=== PATIENT | male | born 1935 | race Caucasian/White ===

== ENCOUNTER → 2017-06-14 07:06 | Outpatient (CLI) | payer OTHER, MEDICARE, SELFPAY ==
[2017-06-14 08:55] LABS: AST(SGOT) 105 U/L (15-37); Alanine Aminotransfer ALT/SGPT 165 U/L (16-61); Albumin, Serum 3.1 g/dL (3.2-5.0); Alkaline Phosphatase 401 U/L (45-117); Bilirubin, Direct 0.21 mg/dL (0.00-0.30); Cholesterol 156 mg/dL (200); Globulin 4.6 g/dL (2.2-4.2); High Density Lipoprotein 39 mg/dL; Protein, Total 7.7 g/dL (6.4-8.2); Triglycerides 137 mg/dL; Very Low Density Lipoprotein 27 mg/dL (5-40)
== END ==
PROVIDERS: Family Provider Family Medicine; PCP Family Medicine; Visit Provider Internal Medicine Cardiovascular Disease
DX: I25.10 Atherosclerotic heart disease of native coronary artery without angina pectoris (principal); E78.5 Hyperlipidemia, unspecified; Z95.1 Presence of aortocoronary bypass graft
CPT/HCPCS: 36415; 80061; 80076

== ENCOUNTER → 2017-07-29 08:23 | Outpatient (CLI) | payer OTHER, MEDICARE, SELFPAY ==
[2017-07-29 11:06] LABS: AST(SGOT) 123 U/L (15-37); Alanine Aminotransfer ALT/SGPT 177 U/L (16-61); Albumin, Serum 3.3 g/dL (3.2-5.0); Alkaline Phosphatase 452 U/L (45-117); Bilirubin, Direct 0.27 mg/dL (0.00-0.30); Globulin 4.9 g/dL (2.2-4.2); Protein, Total 8.2 g/dL (6.4-8.2)
== END ==
PROVIDERS: Nurse Practitioner Family; Family Provider Family Medicine; PCP Family Medicine; Visit Provider Internal Medicine Cardiovascular Disease
DX: R79.89 Other specified abnormal findings of blood chemistry (principal)
CPT/HCPCS: 36415; 80076

== ENCOUNTER → 2017-10-04 06:46 | Outpatient (CLI) | payer OTHER, MEDICARE, SELFPAY ==
[2017-10-04 07:47] LABS: AST(SGOT) 72 U/L (15-37); Alanine Aminotransfer ALT/SGPT 86 U/L (16-61); Albumin, Serum 3.1 g/dL (3.2-5.0); Alkaline Phosphatase 362 U/L (45-117); Bilirubin, Direct 0.39 mg/dL (0.00-0.30); Cholesterol 162 mg/dL (200); Globulin 4.7 g/dL (2.2-4.2); High Density Lipoprotein 38 mg/dL; Protein, Total 7.8 g/dL (6.4-8.2); Triglycerides 162 mg/dL; Very Low Density Lipoprotein 32 mg/dL (5-40)
== END ==
PROVIDERS: Nurse Practitioner Family; Family Provider Family Medicine; PCP Family Medicine; Visit Provider Internal Medicine Cardiovascular Disease
DX: I10 Essential (primary) hypertension (principal); E78.5 Hyperlipidemia, unspecified; I25.10 Atherosclerotic heart disease of native coronary artery without angina pectoris; R74.8 Abnormal levels of other serum enzymes; Z95.1 Presence of aortocoronary bypass graft
CPT/HCPCS: 36415; 80061; 80076

== ENCOUNTER → 2017-10-11 07:48 | Outpatient (CLI) | payer OTHER, MEDICARE, SELFPAY ==
--- NOTE | 2017-10-11 07:52 | ECHOD_ITS ---
Reason For Study: S/P CABG Procedure This was a 2D Doppler, Color Flow transthoracic echocardiogram. Exam performed in department. Left Ventricle Mild concentric left ventricular hypertrophy. The estimated ejection fraction is 40-45 %. There are regional wall motion abnormalities as specified. Posterior-Basal: Mildly hypokinetic. Infero-Basal: Mildly hypokinetic. Right Ventricle Mildly dilated right ventricle. Normal systolic function. Atria The left atrium is mildly enlarged. Normal right atrium. Normal atrial septum. Mitral Valve Mild diffuse mitral valve thickening. Mild (1+) eccentric mitral valve insufficiency. Tricuspid Valve Normal tricuspid valve. Mild (1+) tricuspid valve insufficiency. Right ventricular systolic pressure estimated to be 40 mmHg. Mild pulmonary hypertension. Aortic Valve Trisinus/trileaflet aortic valve. Mild diffuse aortic valve thickening. Pulmonic Valve Normal pulmonic valve. Mild (1+) pulmonic valve insufficiency. Great Vessels Calcified aortic root. Mild atherosclerosis of the aortic arch. Normal inferior vena cava. Inferior vena cava collapse with sniff. Pericardium/Pleural No pericardial effusion. MMode/2D Measurements & Calculations LVIDd: 4.7 cm IVSd: 1.4 cm Ao root diam: 3.2 cm LVIDs: 3.7 cm LVPWd: 1.0 cm RVDd: 4.0 cm FS: 21.0 % LAV(MOD-bp): 67.5 ml LA A4 area: 21.9 cm2 RA A4 area: 17.2 cm2 LAV(MOD-bp) Indexed: 35.4 ml/m2 LAV(MOD-sp2): 60.3 ml LAV(MOD-sp4): 67.9 ml Time Measurements MV dec time: 0.48 sec Doppler Measurements & Calculations MV E max robinson: 44.2 cm/sec Lat Peak E' Robinson: 4.2 cm/sec Med Peak E' Robinson: 3.6 cm/sec MV A max robinson: 85.4 cm/sec E/E' lat: 10.5 E/E' med: 12.2 MV E/A: 0.52 Ao V2 max: 87.8 cm/sec LV V1 max: 77.1 cm/sec PA V2 max: 105.8 cm/sec Ao max P.1 mmHg LV V1 max P.4 mmHg PI end-d robinson: 123.5 cm/sec TR max robinson: 270.4 cm/sec TR max P.5 mmHg Interpretation Summary Mild concentric left ventricular hypertrophy. The estimated ejection fraction is 40-45 %. There are regional wall motion abnormalities as specified. Mildly dilated right ventricle. The left atrium is mildly enlarged. Mild (1+) eccentric mitral valve insufficiency. Mild (1+) tricuspid valve insufficiency. Right ventricular systolic pressure estimated to be 40 mmHg. There is no comparison study available. Ordering Physician: Boubacar Dee Referring Physician: Boubacar Dee Performed By: Jodee Salvador RDCS, RVT
== END ==
PROVIDERS: Family Provider Family Medicine; PCP Family Medicine; Visit Provider Internal Medicine Cardiovascular Disease
DX: I27.21 Secondary pulmonary arterial hypertension (principal); I34.0 Nonrheumatic mitral (valve) insufficiency; I25.2 Old myocardial infarction; Z95.1 Presence of aortocoronary bypass graft
CPT/HCPCS: 93306

== ENCOUNTER → 2017-10-16 09:31 | Outpatient (CLI) | payer OTHER, MEDICARE, SELFPAY ==
--- NOTE | 2017-10-16 09:33 | STE_ITS ---
Reason For Study: Dyspnea Stress Results Protocol: Dobutamine Stress Echo Maximum Predicted HR: 139 bpm Target HR: 118 bpm% Maximum Pre dicted HR: 91 % DurationHeart Rate Stage (mm:ss) (bpm) BPCom ment Baseline 59 151/79 No Chest Pain DSE 10 MCG 3:21 58 145/74No Chest Pain DSE 20 MCG 3:00 11 3 149/67No Chest Pain DSE 30 MCG 2:16 12 6 154/66No Chest Pain Recovery 79 134/73 No Chest Pain Stress Duration: 8:37 mm:ss Maximum Stress HR: 126 bpmM ETS: 1 Baseline Echocardiogram Findings The estimated ejection fraction is 40 %. Stress Echo Wall motion Data Resting WMIntermediate WMStress WM Resting Wall Motion Posterior-Basal: Severely hypokinetic. Mid-Posterior: Severely Hypokinetic. EKG Data The baseline ECG demonstrates normal sinus rhythm with at rate of _ beats per minute. Old inferior/posterior NM. The patient was titrated from 10 mcg to a maximun of 30 mcg of dobutamine during the stress. The maximum heart rate attained was 133 beats per minute. This was 95% of maximum predicted heart rate. During dobutamine infusion, there were no ST or T wave changes noted to suggest ischemia. No clinical angina was noted. Interpretation Summary The estimated ejection fraction is 40 %. Posterior-Basal: Severely hypokinetic. Mid-Posterior: Severely Hypokinetic. The patient was titrated from 10 mcg to a maximun of 30 mcg of dobutamine during the stress. Normal, adequate, dobutamine echocardiogram. Negative for ischemia by EKG and echocardiographic criteria. No anginal symptoms noted. Rare PVCs noted. Appropriate blood pressure response to dobutamine. Patient had baseline severe inferior posterior wall hypo-kinesis which did not appreciably improve during dobutamine infusion. All other cano improved adequately. Final LVEF of 55%. Test terminated due to the attainment of target heart rate. Ordering Physician: Boubacar Dee Referring Physician: Boubacar Dee Performed By: Jodee Salvador, SADIQ, RVT
== END ==
PROVIDERS: Family Provider Family Medicine; PCP Family Medicine; Visit Provider Internal Medicine Cardiovascular Disease
DX: I25.10 Atherosclerotic heart disease of native coronary artery without angina pectoris (principal); I48.0 Paroxysmal atrial fibrillation; Z95.1 Presence of aortocoronary bypass graft; I25.2 Old myocardial infarction; I27.21 Secondary pulmonary arterial hypertension; E78.5 Hyperlipidemia, unspecified; I10 Essential (primary) hypertension
CPT/HCPCS: 93017; 93350; J7030; A4216

== ENCOUNTER → 2018-01-20 11:21 | Outpatient (CLI) | payer OTHER, MEDICARE, SELFPAY ==
[2018-01-20 12:59] LABS: AST(SGOT) 91 U/L (15-37); Alanine Aminotransfer ALT/SGPT 127 U/L (16-61); Albumin, Serum 3.3 g/dL (3.2-5.0); Alkaline Phosphatase 391 U/L (45-117); Cholesterol 164 mg/dL (200); High Density Lipoprotein 48 mg/dL; Protein, Total 8.3 g/dL (6.4-8.2); Triglycerides 141 mg/dL; Very Low Density Lipoprotein 28 mg/dL (5-40)
== END ==
PROVIDERS: Family Provider Family Medicine; PCP Family Medicine; Visit Provider Physician Assistant Medical
DX: E78.5 Hyperlipidemia, unspecified (principal); I10 Essential (primary) hypertension; I25.10 Atherosclerotic heart disease of native coronary artery without angina pectoris; I65.29 Occlusion and stenosis of unspecified carotid artery
CPT/HCPCS: 36415; 80061; 80076

== ENCOUNTER → 2018-02-03 07:08 | Outpatient (CLI) | payer OTHER, MEDICARE, SELFPAY ==
[2018-02-03 09:12] LABS: AST(SGOT) 64 U/L (15-37); Alanine Aminotransfer ALT/SGPT 114 U/L (16-61); Alkaline Phosphatase 387 U/L (45-117); Bilirubin, Direct 0.27 mg/dL (0.00-0.30); Globulin 4.9 g/dL (2.2-4.2); Protein, Total 7.9 g/dL (6.4-8.2)
== END ==
PROVIDERS: Family Provider Family Medicine; PCP Family Medicine; Referring Provider Physician Assistant Medical; Visit Provider Physician Assistant Medical
DX: R74.8 Abnormal levels of other serum enzymes (principal)
CPT/HCPCS: 36415; 80076

== ENCOUNTER → 2018-04-28 07:00 | Outpatient (CLI) | payer OTHER, MEDICARE, SELFPAY ==
[2018-04-28 08:10] LABS: AST(SGOT) 72 U/L (15-37); Alanine Aminotransfer ALT/SGPT 104 U/L (16-61); Albumin, Serum 3.2 g/dL (3.2-5.0); Alkaline Phosphatase 316 U/L (45-117); Bilirubin, Direct 0.32 mg/dL (0.00-0.30); Cholesterol 254 mg/dL (200); Globulin 4.5 g/dL (2.2-4.2); High Density Lipoprotein 51 mg/dL; Protein, Total 7.7 g/dL (6.4-8.2); Triglycerides 173 mg/dL; Very Low Density Lipoprotein 35 mg/dL (5-40)
== END ==
PROVIDERS: Family Provider Family Medicine; PCP Family Medicine; Referring Provider Physician Assistant Medical; Visit Provider Physician Assistant Medical
DX: R74.8 Abnormal levels of other serum enzymes (principal)
CPT/HCPCS: 36415; 80061; 80076

== ENCOUNTER 2018-05-23 08:56 | Emergency (ER) | payer OTHER, MEDICARE, SELFPAY ==
[2018-05-23 08:57] VITALS: BP 159/72; PULSE 71; RESP 18; TEMP 36.2; O2SAT 95; BMI 22.6
--- NOTE | 2018-05-23 09:09 | CT_ITS ---
STUDY: CT BRAIN WITHOUT CONTRAST REASON FOR EXAM: Male, 82 years old. Laceration above the right orbit following. RADIATION DOSAGE (If Supplied By Facility): CTDIvol = ( 44.99 ) mGy, DLP = ( 779.24 ) mGycm TECHNIQUE: Transaxial CT imaging of the brain was performed without administration of intravenous contrast material. Individualized dose optimization techniques were used for this CT. COMPARISON: None. FINDINGS: Focal soft tissue hematoma overlying the lateral aspect of the right orbital region. Normal calvarium. There is mild cerebral atrophy with widening of the extra-axial spaces and ventricular dilatation. Normal white matter tracts of the cerebral hemispheres. Normal basal ganglia and thalami. Normal brainstem. Normal cerebellum. There is no intracranial hemorrhage. There are no findings of an acute ischemic infarction. Dense atherosclerotic calcification of the vertebral arteries and basilar artery as well as the cavernous portions of the internal carotid arteries bilaterally. Mucosal polyps or retention cysts in both maxillary sinuses. CT/Brain/Head without Contrast IMPRESSION: Chronic involutional changes of the brain. Focal soft tissue hematoma overlying the right orbital region. Electronically Signed: Reynaldo Cruz, at 9:29 EDT , Service support ,
--- NOTE | 2018-05-23 09:11 | ED.VISSUMM ---
- ER Visit Summary Date of Service: 05/23/18 Chief Complaint: Fall, right eyebrow laceration History of Present Illness: The patient is a 82 M who presents after a fall. He tripped on a rug and fell and hit his head. No LOC. He sustained a laceration lateral to the right eyebrow. He does take a baby aspirin. Tetanus is up-to-date. Denies any other symptoms. Physical Examination: Vital signs reviewed. HEENT exam reveals a 1.5 cm vertical laceration lateral to the right eyebrow. He has no neck pain. Full range of motion. Heart is regular rate and rhythm. Lungs clear to auscultation. Abdomen soft nontender. Neurologic exam normal Test Results: CT scan of the head reveals chronic involutional changes. There is soft tissue swelling over the area of the laceration Emergency Department Course and Treatment: The patient's wound was sutured with 3, 5?0 simple nylon sutures. There was good wound approximation. Patient's tetanus will be updated. Patient will be discharged to have sutures out in 5-7 days. Treatment Plan: [] Disposition: Discharge Impression: Closed head injury, facial laceration, 1.5 cm Laceration repair by ED physician This note was generated with [employer] dictation software. It may contain incorrect words, spelling, and punctuation that were not noted in review of the chart prior to signing ED Disposition - Plan for ED Patient: Referrals: Samir Abdi MD [Primary Care Provider] -
--- NOTE | 2018-05-23 09:32 | ED.DEP ---
ED Disposition - Plan for ED Patient: Disposition: Home or Assisted Living Instructions: ED Mechanical Fall, ED Laceration All Referrals: Samir Abdi MD [Primary Care Provider] -
[2018-05-23] MEDS: Diphth,Pertuss(Acell),Tet Vac 0.5 ML Vial IM (09:41)
== END 2018-05-23 09:48 | disposition home or self-care (01) ==
PROVIDERS: Emergency Provider Emergency Medicine; Family Provider Family Medicine; PCP Family Medicine
DX: S01.111A Laceration without foreign body of right eyelid and periocular area, initial encounter (principal); W01.198A Fall on same level from slipping, tripping and stumbling with subsequent striking against other object, initial encounter; Y93.9 Activity, unspecified; Y92.89 Other specified places as the place of occurrence of the external cause; Y99.9 Unspecified external cause status; Z79.82 Long term (current) use of aspirin; I10 Essential (primary) hypertension; E78.00 Pure hypercholesterolemia, unspecified; I48.0 Paroxysmal atrial fibrillation; E11.9 Type 2 diabetes mellitus without complications; I25.10 Atherosclerotic heart disease of native coronary artery without angina pectoris; Z95.1 Presence of aortocoronary bypass graft
CPT/HCPCS: 12011; 70450; 90471; 90715; 99283

== ENCOUNTER → 2018-06-30 08:29 | Outpatient (CLI) | payer OTHER, MEDICARE, SELFPAY ==
[2018-06-30 09:26] LABS: Absolute Lymphocyte Count 2.55 X10^3/ul (0.83-4.51); Basophil# 0.02 X10^3/uL; Basophil% 0.3 % (0-1); Eosinophil# 0.27 X10^3/uL; Eosinophils% 3.5 % (0-5); Hematocrit 40.7 % (40-54); Hemoglobin 13.4 g/dl (13.0-16.5); Lymphocyte # 2.55 X10^3/ul (4.0); Lymphocyte % 33.5 % (19-41); Mean Corp Hgb Conc 32.9 g/gl (32-36); Mean Corpuscular Hgb 31.1 pg (27.0-32.0); Mean Corpuscular Volume 94.4 fL (80-94); Mean Platelet Vol. 10.9 fl (6.2-12.0); Monocyte# 0.72 X10^3/uL; Monocyte% 9.4 % (0-10); Neutrophil # 4.03 X10^3/uL (2.7-7.7); Neutrophil % 52.9 % (47-70); Platelet Count 205 K/mm3 (150-450); RBC Distribution Width CV 14.1 % (11.6-14.6); RBC Distribution Width SD 48.3 fl (35.1-43.9); Red Blood Count 4.31 M/mm3 (4.6-6.2); White Blood Count 7.6 K/mm3 (4.4-11.0)
[2018-06-30 09:27] LABS: POSITIVE COUNT NO; POSITIVE DIFFERENTIAL NO; POSITIVE MORPHOLOGY NO
[2018-06-30 09:31] LABS: Prothrombin Time (Protime)PT. 13.4 SECONDS (11.7-14.9)
[2018-06-30 09:54] LABS: Vitamin B12 953 pg/mL (211-911); Vitamin D,25 Hydroxy 18.4 ng/mL (29.95-100.01)
[2018-06-30 09:55] LABS: BUN 21 mg/dL (7-18); Creatinine, Serum 1.29 mg/dL (0.70-1.30); EST Glomerular Filtration Rate 57 mL/min (>60); Glucose 90 mg/dL (74-106)
[2018-06-30 09:56] LABS: AST(SGOT) 74 U/L (15-37); Alanine Aminotransfer ALT/SGPT 121 U/L (16-61); Albumin, Serum 3.1 g/dL (3.2-5.0); Alkaline Phosphatase 372 U/L (45-117); Anion Gap 5 (5-15); BUN/Creat Ratio 16.3 RATIO (10-20); Bilirubin, Direct 0.42 mg/dL (0.00-0.30); Chloride 108 mmol/L (98-107); Cholesterol 228 mg/dL (200); Est Glom Filt Rate - Afr Amer 69 mL/min (>60); Ferritin 123 ng/mL (26-388); GGTP 793 U/L (15-85); Globulin 4.5 g/dL (2.2-4.2); High Density Lipoprotein 46 mg/dL; Iron 139 ug/dL (65-175); Iron Binding Capacity,Total 234 ug/dL (250-450); Potassium 3.9 mmol/L (3.5-5.1); Protein, Total 7.6 g/dL (6.4-8.2); Sodium Level 141 mmol/L (136-145); T4 Total, Thyroxin 8.6 ug/dL (4.5-12.1); Triglycerides 191 mg/dL; Very Low Density Lipoprotein 38 mg/dL (5-40)
[2018-07-01 16:07] LABS: ANTINUCLEAR ANTIBODIES DIRECT Positive (Negative)
[2018-07-02 15:11] LABS: Alpha Antitrypsin Serum 141 mg/dL (90-200); Anti-Mitochondrial AB 78.3 Units (0.0-20.0)
== END ==
PROVIDERS: Family Provider Family Medicine; PCP Family Medicine
DX: R94.5 Abnormal results of liver function studies (principal)
CPT/HCPCS: 36415; 80048; 80061; 80076; 82103; 82105; 82306; 82390; 82607; 82728; 82977; 83516; 83540; 83550; 84165; 84436; 84443; 84590; 85025; 85610; 85730; 86038; 86644; 86663; 86664; 86665; 86704; 86706; 86708; 86803; 87340

== ENCOUNTER → 2018-09-08 07:49 | Outpatient (CLI) | payer OTHER, MEDICARE, SELFPAY ==
[2018-08-07 13:20] VITALS: BMI 21.5
[2018-09-08 08:36] LABS: Absolute Lymphocyte Count 3.73 X10^3/ul (0.83-4.51); Absolute Neutrophil Count 3.5 X10^3/uL (2.0-7.7); Basophil# 0.02 X10^3/uL; Basophil% 0.2 % (0-1); Eosinophil# 0.11 X10^3/uL; Eosinophils% 1.4 % (0-5); Hematocrit 41.1 % (40-54); Hemoglobin 13.8 g/dl (13.0-16.5); Lymphocyte # 3.73 X10^3/ul (4.0); Lymphocyte % 46.2 % (19-41); Mean Corp Hgb Conc 33.6 g/gl (32-36); Mean Corpuscular Hgb 31.2 pg (27.0-32.0); Mean Platelet Vol. 10.2 fl (6.2-12.0); Monocyte# 0.69 X10^3/uL; Monocyte% 8.6 % (0-10); Neutrophil # 3.51 X10^3/uL (2.7-7.7); Neutrophil % 43.5 % (47-70); Platelet Count 176 K/mm3 (150-450); RBC Distribution Width SD 47.7 fl (35.1-43.9); Red Blood Count 4.42 M/mm3 (4.6-6.2); White Blood Count 8.1 K/mm3 (4.4-11.0)
[2018-09-08 08:38] LABS: POSITIVE COUNT NO; POSITIVE DIFFERENTIAL NO; POSITIVE MORPHOLOGY NO
[2018-09-08 09:18] LABS: AST(SGOT) 21 U/L (15-37); Alanine Aminotransfer ALT/SGPT 22 U/L (16-61); Albumin, Serum 3.3 g/dL (3.2-5.0); Alkaline Phosphatase 88 U/L (45-117); Anion Gap 5 (5-15); BUN 30 mg/dL (7-18); BUN/Creat Ratio 22.4 RATIO (10-20); Calcium,Total 9.3 mg/dL (8.5-10.1); Chloride 109 mmol/L (98-107); Cholesterol 250 mg/dL (200); Creatinine, Serum 1.34 mg/dL (0.70-1.30); EST Glomerular Filtration Rate 54 mL/min (>60); Est Glom Filt Rate - Afr Amer 66 mL/min (>60); Ferritin 91 ng/mL (26-388); GGTP 94 U/L (15-85); Glucose 92 mg/dL (74-106); High Density Lipoprotein 40 mg/dL; Iron 67 ug/dL (65-175); Iron Binding Capacity,Total 251 ug/dL (250-450); Potassium 4.1 mmol/L (3.5-5.1); Protein, Total 7.3 g/dL (6.4-8.2); Sodium Level 142 mmol/L (136-145); Triglycerides 227 mg/dL; Very Low Density Lipoprotein 45 mg/dL (5-40)
[2018-09-08 09:26] LABS: Vitamin B12 628 pg/mL (211-911); Vitamin D,25 Hydroxy 40.6 ng/mL (29.95-100.01)
== END ==
PROVIDERS: Family Provider Family Medicine; PCP Family Medicine
DX: R94.5 Abnormal results of liver function studies (principal); R63.4 Abnormal weight loss
CPT/HCPCS: 36415; 80048; 80061; 80076; 82140; 82306; 82607; 82728; 82977; 83516; 83540; 83550; 84443; 84590; 84630; 85025

== ENCOUNTER → 2018-11-24 07:56 | Outpatient (CLI) | payer OTHER, MEDICARE, SELFPAY ==
[2018-08-07 13:20] VITALS: BMI 21.5
[2018-11-24 09:31] LABS: AST(SGOT) 30 U/L (15-37); Alanine Aminotransfer ALT/SGPT 44 U/L (16-61); Albumin, Serum 3.1 g/dL (3.2-5.0); Alkaline Phosphatase 107 U/L (45-117); Bilirubin, Direct 0.13 mg/dL (0.00-0.30); Protein, Total 7.1 g/dL (6.4-8.2); T4 Free Direct 1.23 ng/dL (0.76-1.46); Thyroid Stim Hormone (TSH) 0.77 uIU/mL (0.358-3.74)
== END ==
PROVIDERS: Family Provider Family Medicine; PCP Family Medicine; Referring Provider Family Medicine; Visit Provider Family Medicine
DX: E78.5 Hyperlipidemia, unspecified (principal); R74.0 Nonspecific elevation of levels of transaminase and lactic acid dehydrogenase [LDH]; E03.9 Hypothyroidism, unspecified
CPT/HCPCS: 36415; 80076; 84439; 84443

== ENCOUNTER → 2018-12-24 11:23 | Outpatient (CLI) | payer OTHER, MEDICARE, SELFPAY ==
[2018-08-07 13:20] VITALS: BMI 21.5
[2018-12-24 16:21] LABS: BUN 27 mg/dL (7-18); Creatinine, Serum 1.13 mg/dL (0.70-1.30); Glucose 93 mg/dL (74-106)
[2018-12-24 16:22] LABS: ALB/GLOB Ratio 0.9 RATIO (0.9-2.4); AST(SGOT) 22 U/L (15-37); Alanine Aminotransfer ALT/SGPT 28 U/L (16-61); Albumin, Serum 3.3 g/dL (3.2-5.0); Alkaline Phosphatase 96 U/L (45-117); Anion Gap 7 (5-15); BUN/Creat Ratio 23.9 RATIO (10-20); Calcium,Total 9.2 mg/dL (8.5-10.1); Chloride 108 mmol/L (98-107); EST Glomerular Filtration Rate 66 mL/min (>60); Est Glom Filt Rate - Afr Amer 80 mL/min (>60); GGTP 51 U/L (15-85); Globulin 3.7 g/dL (2.2-4.2); Potassium 4.5 mmol/L (3.5-5.1); Sodium Level 143 mmol/L (136-145); T4 Free Direct 2.06 ng/dL (0.76-1.46); Thyroid Stim Hormone (TSH) 0.02 uIU/mL (0.358-3.74)
[2018-12-24 16:29] LABS: Hemoglobin A1c 5.7 % (4.2-6.3)
== END ==
PROVIDERS: Family Provider Family Medicine; PCP Family Medicine; Visit Provider Family Medicine
DX: E03.9 Hypothyroidism, unspecified (principal); R74.0 Nonspecific elevation of levels of transaminase and lactic acid dehydrogenase [LDH]; R73.01 Impaired fasting glucose
CPT/HCPCS: 36415; 80053; 82977; 83036; 84439; 84443

== ENCOUNTER → 2019-01-19 08:00 | Outpatient (CLI) | payer OTHER, MEDICARE, SELFPAY ==
[2019-01-11 21:13] VITALS: BMI 21.5
--- NOTE | 2019-01-19 08:01 | NM_ITS ---
CLINICAL: 83-year-old male with reported history of elevation of the serum free T4 level and a suppressed serum TSH. I-123 THYROID UPTAKE and SCAN COMPARISON: None available FINDINGS: The patient was administered a 321 uCi I-123 capsule by mouth. The 4-hour I-123 radioactive iodine thyroidal uptake was calculated to be 2.7 % (normal 5 to 25 %). The 24-hour I-123 radioactive iodine thyroidal uptake was calculated to be 2.4 % (normal 5 to 40 %). The I-123 thyroid scan demonstrates heterogeneous-decreased radiopharmaceutical concentration throughout both lobes of a U-shaped thyroid gland. There are no dominant colloidal parenchymal hypofunctioning-cold nodules noted in either lobe of the thyroid gland. NM/Thyroid Uptake Single or Mult IMPRESSION: 1. ABNORMAL DECREASED 4- and 24-hour I-123 radioactive iodine thyroidal uptakes. 2. 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 Electronically Signed: Wellington Parikh DO at 23:29 EST Tel , Service support ,
== END ==
PROVIDERS: Family Provider Family Medicine; PCP Family Medicine; Referring Provider Internal Medicine Endocrinology, Diabetes & Metabolism; Visit Provider Internal Medicine Endocrinology, Diabetes & Metabolism
DX: E05.90 Thyrotoxicosis, unspecified without thyrotoxic crisis or storm (principal); R94.6 Abnormal results of thyroid function studies
CPT/HCPCS: 78012; A9516

== ENCOUNTER → 2019-02-16 07:35 | Outpatient (CLI) | payer OTHER, MEDICARE, SELFPAY ==
[2019-01-11 21:13] VITALS: BMI 21.5
[2019-02-16 09:17] LABS: T4 Free Direct 0.93 ng/dL (0.76-1.46); Thyroid Stim Hormone (TSH) 2.01 uIU/mL (0.358-3.74)
== END ==
PROVIDERS: Family Provider Family Medicine; PCP Family Medicine; Referring Provider Internal Medicine Endocrinology, Diabetes & Metabolism; Visit Provider Internal Medicine Endocrinology, Diabetes & Metabolism
DX: E06.3 Autoimmune thyroiditis (principal)
CPT/HCPCS: 36415; 84439; 84443

== ENCOUNTER → 2019-02-27 15:30 | Outpatient (CLI) | payer OTHER, MEDICARE, SELFPAY ==
[2019-01-11 21:13] VITALS: BMI 21.5
== END ==
PROVIDERS: Family Provider Family Medicine; PCP Family Medicine; Referring Provider Family Medicine; Visit Provider Family Medicine
DX: R19.7 Diarrhea, unspecified (principal)
CPT/HCPCS: 83630; 87177; 87209; 87493; 87506

== ENCOUNTER → 2019-04-24 | Outpatient (CLI) | payer OTHER, MEDICARE, SELFPAY ==
[2019-01-11 21:13] VITALS: BMI 21.5
[2019-04-24 15:38] LABS: Absolute Lymphocyte Count 3.55 X10^3/uL (0.83-4.51); Absolute Neutrophil Count 6.1 X10^3/uL (2.0-7.7); Basophil# 0.02 X10^3/uL; Basophil% 0.2 % (0-1); Eosinophil# 0.17 X10^3/uL; Eosinophils% 1.6 % (0-5); Hematocrit 40.1 % (40-54); Hemoglobin 13.1 g/dL (13.0-16.5); Lymphocyte # 3.55 X10^3/ul (4.0); Lymphocyte % 32.4 % (19-41); Mean Corp Hgb Conc 32.7 g/dL (32-36); Mean Corpuscular Volume 91.8 fL (80-94); Mean Platelet Vol. 11.1 fl (6.2-12.0); Monocyte# 1.04 X10^3/uL; Monocyte% 9.5 % (0-10); NRBC Flagged by Analyzer 0 % (0-5); Neutrophil # 6.12 X10^3/uL (2.7-7.7); Neutrophil % 55.8 % (47-70); Platelet Count 206 K/mm3 (150-450); RBC Distribution Width CV 13.7 % (11.6-14.6); RBC Distribution Width SD 46.6 fl (35.1-43.9); Red Blood Count 4.37 M/mm3 (4.6-6.2)
[2019-04-24 15:59] LABS: International Normalized Ratio 1.1; Prothrombin Time (Protime)PT. 14.3 SECONDS (11.7-14.9)
[2019-04-24 16:00] LABS: Partial Thromboplast Time 35.5 Seconds (24.1-36.2)
[2019-04-24 16:11] LABS: ALB/GLOB Ratio 0.9 RATIO (0.9-2.4); AST(SGOT) 20 U/L (15-37); Alanine Aminotransfer ALT/SGPT 25 U/L (16-61); Albumin, Serum 3.5 g/dL (3.2-5.0); Alkaline Phosphatase 72 U/L (45-117); Anion Gap 4 (5-15); BUN 29 mg/dL (7-18); BUN/Creat Ratio 23.2 RATIO (10-20); Calcium,Total 9.3 mg/dL (8.5-10.1); Chloride 110 mmol/L (98-107); Creatinine, Serum 1.25 mg/dL (0.70-1.30); EST Glomerular Filtration Rate 59 mL/min (>60); Est Glom Filt Rate - Afr Amer 71 mL/min (>60); Globulin 3.8 g/dL (2.2-4.2); Glucose 85 mg/dL (74-106); Potassium 4.5 mmol/L (3.5-5.1); Protein, Total 7.3 g/dL (6.4-8.2); Sodium Level 143 mmol/L (136-145)
== END | disposition home or self-care (01) ==
PROVIDERS: PCP Family Medicine; Visit Provider Family Medicine
DX: K92.1 Melena (principal)
CPT/HCPCS: 36415; 80053; 85025; 85610; 85730

== ENCOUNTER → 2019-04-27 | Outpatient (CLI) | payer OTHER, MEDICARE, SELFPAY ==
[2019-01-11 21:13] VITALS: BMI 21.5
== END | disposition home or self-care (01) ==
LOC: BFHLAB 10:37
PROVIDERS: PCP Family Medicine; Visit Provider Family Medicine
DX: K92.1 Melena (principal); R19.7 Diarrhea, unspecified
CPT/HCPCS: 82274

== ENCOUNTER → 2019-06-19 | Outpatient (CLI) | payer OTHER, MEDICARE, SELFPAY ==
[2019-01-11 21:13] VITALS: BMI 21.5
[2019-06-19 08:30] LABS: Absolute Lymphocyte Count 3.29 X10^3/uL (0.83-4.51); Absolute Neutrophil Count 4.8 X10^3/uL (2.0-7.7); Basophil# 0.03 X10^3/uL; Basophil% 0.3 % (0-1); Eosinophil# 0.23 X10^3/uL; Eosinophils% 2.5 % (0-5); Hematocrit 40.4 % (40-54); Hemoglobin 13.4 g/dL (13.0-16.5); Lymphocyte # 3.29 X10^3/ul (4.0); Lymphocyte % 35.3 % (19-41); Mean Corp Hgb Conc 33.2 g/dL (32-36); Mean Corpuscular Hgb 31.4 pg (27.0-32.0); Mean Corpuscular Volume 94.6 fL (80-94); Mean Platelet Vol. 10.2 fl (6.2-12.0); Monocyte% 9.7 % (0-10); NRBC Flagged by Analyzer 0 % (0-5); Neutrophil # 4.84 X10^3/uL (2.7-7.7); Platelet Count 187 K/mm3 (150-450); RBC Distribution Width CV 13.5 % (11.6-14.6); RBC Distribution Width SD 46.5 fl (35.1-43.9); Red Blood Count 4.27 M/mm3 (4.6-6.2); White Blood Count 9.3 K/mm3 (4.4-11.0)
[2019-06-19 08:38] LABS: International Normalized Ratio 1.1; Prothrombin Time (Protime)PT. 13.5 SECONDS (11.7-14.9)
[2019-06-19 08:57] LABS: Vitamin B12 822 pg/mL (211-911)
[2019-06-19 09:02] LABS: AST(SGOT) 25 U/L (15-37); Alanine Aminotransfer ALT/SGPT 27 U/L (16-61); Albumin, Serum 3.7 g/dL (3.2-5.0); Alkaline Phosphatase 90 U/L (45-117); Anion Gap 6 (5-15); BUN 36 mg/dL (7-18); BUN/Creat Ratio 25.4 RATIO (10-20); Bilirubin, Direct 0.16 mg/dL (0.00-0.30); Calcium,Total 9.3 mg/dL (8.5-10.1); Chloride 109 mmol/L (98-107); Cholesterol 124 mg/dL (200); Creatinine, Serum 1.42 mg/dL (0.70-1.30); EST Glomerular Filtration Rate 51 mL/min (>60); Est Glom Filt Rate - Afr Amer 61 mL/min (>60); GGTP 35 U/L (15-85); Globulin 3.9 g/dL (2.2-4.2); Glucose 112 mg/dL (74-106); High Density Lipoprotein 37 mg/dL; Potassium 4.2 mmol/L (3.5-5.1); Protein, Total 7.6 g/dL (6.4-8.2); Sodium Level 142 mmol/L (136-145); Triglycerides 215 mg/dL; Very Low Density Lipoprotein 43 mg/dL (5-40)
[2019-06-24 05:17] LABS: AFP, Tumor Marker 2.7 ng/mL (0.0-8.3)
== END | disposition home or self-care (01) ==
LOC: LAB 08:06
PROVIDERS: PCP Family Medicine
DX: B19.10 Unspecified viral hepatitis B without hepatic coma (principal); R94.5 Abnormal results of liver function studies; R63.4 Abnormal weight loss
CPT/HCPCS: 36415; 80048; 80061; 80076; 82105; 82607; 82677; 82977; 84443; 84590; 84702; 85025; 85610

== ENCOUNTER → 2019-11-18 | Outpatient (CLI) | payer OTHER, MEDICARE, SELFPAY ==
[2019-01-11 21:13] VITALS: BMI 21.5
--- NOTE | 2019-11-18 14:32 | RAD_ITS ---
STUDY: X-RAY CHEST REASON FOR EXAM: Male, 84 years old. SOB x 6 months, worsening x several weeks -- previous heart surgery 30 years ago -- former smoker, quit 25 years ago -- high blood pressure, takes medication for it TECHNIQUE: PA and lateral views of the chest. COMPARISON: None. FINDINGS: Status post median sternotomy. There is hyperinflation of the lungs consistent with chronic obstructive lung disease (COPD). There is no demonstrated pleural abnormality. Normal size heart. Normal mediastinum and morenita. Normal visualized pulmonary arteries. Normal visualized aortic arch and descending thoracic aorta. Normal visualized thoracic spine. Normal visualized ribs, clavicles, and shoulders. There is no demonstrated abnormality of the visualized soft tissue structures of the upper abdomen. RAD/Chest PA and Lateral IMPRESSION: Emphysema without pneumonia or atelectasis. Electronically Signed: Wellington Keita MD at 15:03 EDT Tel , Service support ,
[2019-11-18 16:38] LABS: Hematocrit 41.7 % (40-54); Hemoglobin 13.6 g/dL (13.0-16.5); Mean Corp Hgb Conc 32.6 g/dL (32-36); Mean Corpuscular Hgb 30.8 pg (27.0-32.0); Mean Corpuscular Volume 94.6 fL (80-94); Mean Platelet Vol. 10.7 fl (6.2-12.0); Platelet Count 230 K/mm3 (150-450); RBC Distribution Width CV 13.2 % (11.6-14.6); RBC Distribution Width SD 45.1 fl (35.1-43.9); Red Blood Count 4.41 M/mm3 (4.6-6.2); White Blood Count 12.3 K/mm3 (4.4-11.0)
[2019-11-18 16:59] LABS: ALB/GLOB Ratio 1.1 RATIO (0.9-2.4); AST(SGOT) 27 U/L (15-37); Alanine Aminotransfer ALT/SGPT 30 U/L (16-61); Albumin, Serum 3.9 g/dL (3.2-5.0); Alkaline Phosphatase 89 U/L (45-117); Anion Gap 6 (5-15); BNP,B-Type NATRIURETIC PEPTIDE 191.7 pg/mL (0-100); BUN 46 mg/dL (7-18); BUN/Creat Ratio 25.4 RATIO (10-20); Calcium,Total 9.2 mg/dL (8.5-10.1); Chloride 110 mmol/L (98-107); Creatinine, Serum 1.81 mg/dL (0.70-1.30); EST Glomerular Filtration Rate 38 mL/min (>60); Est Glom Filt Rate - Afr Amer 46 mL/min (>60); Globulin 3.7 g/dL (2.2-4.2); Glucose 94 mg/dL (74-106); Potassium 4.1 mmol/L (3.5-5.1); Protein, Total 7.6 g/dL (6.4-8.2); Sodium Level 142 mmol/L (136-145)
== END | disposition home or self-care (01) ==
LOC: RAD 14:32
PROVIDERS: PCP Family Medicine; Referring Provider Nurse Practitioner Family; Visit Provider Nurse Practitioner Family
DX: I25.10 Atherosclerotic heart disease of native coronary artery without angina pectoris (principal); R06.00 Dyspnea, unspecified; I27.21 Secondary pulmonary arterial hypertension; I48.0 Paroxysmal atrial fibrillation; K74.60 Unspecified cirrhosis of liver; Z95.1 Presence of aortocoronary bypass graft
CPT/HCPCS: 36415; 71046; 80053; 83880; 85027

== ENCOUNTER → 2019-12-04 | Outpatient (CLI) | payer OTHER, MEDICARE, SELFPAY ==
[2019-01-11 21:13] VITALS: BMI 21.5
--- NOTE | 2019-12-04 06:10 | ECHOCS_ITS ---
Reason For Study: Dyspnea/SOB Procedure This was a 2D Doppler, Color Flow transthoracic echocardiogram. The study was technically difficult. Contrast injection was performed. Exam performed in department. Left Ventricle Mildly dilated left ventricle. Mild to moderate segmental systolic dysfunction (see wall motion). The estimated ejection fraction is 40 %. There is evidence of diastolic dysfunction. Posterior- Basal: Hypokinetic. Infero-Basal: Akinetic. Basal inferoseptal: Hypokinetic. Mid-Posterior: Hypokinetic. Mid-Inferior: Akinetic. Mid-inferoseptal : Hypokinetic. Anterior Munith : Hypokinetic. Inferior Munith : Akinetic. Septal Munith : Hypokinetic. Right Ventricle Normal RV size. Normal systolic function. Atria The left atrium is mildly enlarged. Normal right atrium. No doppler evidence for ASD. Mitral Valve There is no mitral annular calcification. Mild diffuse mitral valve thickening. Mild focal mitral valve calcification of the posterior leaflet. The mitral valve chordae are thickened and/or calcified. Moderate (2+) eccentric mitral valve insufficiency. Tricuspid Valve Normal tricuspid valve. Mild to moderate (1-2+) tricuspid valve insufficiency. Right ventricular systolic pressure estimated to be 38 mmHg. Aortic Valve Trisinus/trileaflet aortic valve. Mild diffuse aortic valve thickening. Trivial aortic valve insufficiency. Pulmonic Valve The pulmonic valve is not well visualized. Mild-Moderate (1-2+) pulmonic valve insufficiency. Great Vessels Normal sized aortic root. Calcified aortic root. Pericardium/Pleural No pericardial effusion. Medication Diluted definity 4ml given slow IV push to enhance endocardial definition. MMode/2D Measurements & Calculations LVIDd: 5.9 cm IVSd: 1.1 cm Ao root diam: 3.3 cm LVIDs: 4.7 cm LVPWd: 0.63 cm RVDd: 3.4 cm FS: 19.8 % LAV(MOD-bp): 70.2 ml LVAd ap4: 34.9 cm2 SV(MOD-sp4): 57.4 ml LAV(MOD-bp) Indexed: 36.5 ml/m2 EDV(MOD-sp4): 126.5 ml LAV(MOD-sp2): 59.9 ml EDV(sp4-el): 130.0 ml LAV(MOD-sp4): 66.9 ml LVAs ap4: 23.8 cm2 ESV(MOD-sp4): 69.1 ml ESV(sp4-el): 69.8 ml EF(MOD-sp4): 45.4 % EF(sp4-el): 46.3 % SV(sp4-el): 60.2 ml LA A4 area: 22.4 cm2 LA dimension(2D): 4.8 cm RA A4 area: 16.7 cm2 Doppler Measurements & Calculations MV E max robinson: 74.4 cm/sec Lat Peak E' Robinson: 5.3 cm/sec Med Peak E' Robinson: 3.6 cm/sec MV A max robinson: 102.3 cm/sec E/E' lat: 13.9 E/E' med: 20.6 MV E/A: 0.73 Ao V2 max: 98.7 cm/sec LV V1 max: 71.7 cm/sec PA V2 max: 108.8 cm/sec Ao max P.9 mmHg LV V1 max P.1 mmHg Ao V2 mean: 74.0 cm/sec Ao mean P.3 mmHg Ao V2 VTI: 27.5 cm PI end-d robinson: 134.8 cm/sec TR max robinson: 293.9 cm/sec TR max P.5 mmHg Interpretation Summary The study was technically difficult. Contrast injection was performed. Mildly dilated left ventricle. Mild to moderate segmental systolic dysfunction (see wall motion). The estimated ejection fraction is 40 %. The left atrium is mildly enlarged. Mild diffuse mitral valve thickening. Mild focal mitral valve calcification of the posterior leaflet. The mitral valve chordae are thickened and/or calcified. Moderate (2+) eccentric mitral valve insufficiency. Mild to moderate (1-2+) tricuspid valve insufficiency. Mild diffuse aortic valve thickening. Trivial aortic valve insufficiency. Mild-Moderate (1-2+) pulmonic valve insufficiency. Calcified aortic root. Right ventricular systolic pressure estimated to be 38 mmHg. There is evidence of diastolic dysfunction. Ordering Physician: Serg Browne Referring Physician: Samir Abdi Performed By: Abbie Browne RDCS, RVT
--- NOTE | 2019-12-04 08:39 | STRESSREP ---
Stress Test Report Date: 12-04-2019 Procedure: Pharmacologic stress nuclear imaging study Indications: Shortness of breath/dyspnea on exertion Consent: Per the patient Procedure: The patient underwent pharmacologic (Regadenoson) evaluation with a peak heart rate of 80 beats per minute (58%predicted maximal heart rate) and a peak blood pressure of 128/68 mmHg. The baseline ECG demonstrated sinus bradycardia; T wave abnormality. The peak pharmacologic ECG demonstrated no obvious ECG changes. There was an occasional PVC pretest. There was no complaint of chest discomfort during pharmacologic infusion or recovery. The examination was discontinued secondary to completion of protocol. Impression: 1. Pharmacologic (Regadenoson) evaluation 2. Peak pharmacologic ECG with continued T wave abnormality with no obvious ECG changes. 3. There was an occasional PVC pretest. 4. Nuclear images pending Myocardial perfusion imaging study: Technique: The patient was injected with 10.9 millicuries of technetium 99m Cardiolite and subsequently rest SPECT Cardiolite nuclear imaging was obtained in the horizontal long, vertical long, and short axis views. The patient underwent pharmacologic (Regadenoson) evaluation with a peak heart rate of 80 beats per minute (58% percent predicted maximal heart rate) and a peak blood pressure of 128/68 mmHg. The patient was injected with 33.1 millicuries of technetium 99m Cardiolite and subsequently stress SPECT Cardiolite nuclear imaging was obtained in the horizontal long, vertical long, and short axis views. A gated Cardiolite study at peak stress was obtained. Interpretation: Rest and stress SPECT Cardiolite nuclear imaging status post realignment, normalization, and attenuation correction demonstrate the appearance of diminished absence of myocardial perfusion/tracer uptake in portions of the mid to distal inferoseptal, inferior, and inferolateral segments as well as the inferior apical and lateral segments which status post stress appears to be somewhat more prominent in the inferoapical and lateral apical segments. There is diminished end systolic thickening and brightening. The gated Cardiolite study demonstrates diminished myocardial thickening and inward wall motion. The reported LVEF is 16%. Impression: 1. Rest and stress SPECT Cardiolite nuclear imaging demonstrate myocardial perfusion changes compatible with an area of previous myocardial injury/infarction involving portions of the inferoseptal, inferior, inferolateral, inferoapical and lateral apical segments with post stress myocardial perfusion changes appearing compatible with an element of mild denton-infarct related myocardial ischemia in the inferior apical/lateral apical segments. 2. The gated Cardiolite study reports an LVEF of 16%. This note was generated with [employer] software. It may contain incorrect words, spelling, and punctuation that were not noted in checking the note before signing.
== END | disposition home or self-care (01) ==
LOC: CVS 06:10
PROVIDERS: PCP Family Medicine; Referring Provider Nurse Practitioner Family; Visit Provider Nurse Practitioner Family
DX: R06.00 Dyspnea, unspecified (principal); R06.02 Shortness of breath; I25.10 Atherosclerotic heart disease of native coronary artery without angina pectoris; I25.2 Old myocardial infarction; I34.1 Nonrheumatic mitral (valve) prolapse; I34.0 Nonrheumatic mitral (valve) insufficiency; I27.21 Secondary pulmonary arterial hypertension; I10 Essential (primary) hypertension; E78.5 Hyperlipidemia, unspecified; I48.0 Paroxysmal atrial fibrillation; I65.29 Occlusion and stenosis of unspecified carotid artery; Z95.1 Presence of aortocoronary bypass graft
CPT/HCPCS: 78452; 93017; 93306; A9500; Q9957; A4216; C8929; J2785

== ENCOUNTER → 2019-12-18 | Outpatient (CLI) | payer OTHER, MEDICARE, SELFPAY ==
[2019-12-07 15:18] VITALS: BMI 23.9
[2019-12-18 12:50] LABS: Absolute Lymphocyte Count 4.85 X10^3/uL (0.83-4.51); Absolute Neutrophil Count 6.2 X10^3/uL (2.0-7.7); Basophil# 0.05 X10^3/uL; Basophil% 0.4 % (0-1); Eosinophil# 0.25 X10^3/uL; Hematocrit 39.7 % (40-54); Hemoglobin 12.9 g/dL (13.0-16.5); Lymphocyte # 4.85 X10^3/ul (4.0); Lymphocyte % 38.8 % (19-41); Mean Corp Hgb Conc 32.5 g/dL (32-36); Mean Corpuscular Hgb 31.1 pg (27.0-32.0); Mean Corpuscular Volume 95.7 fL (80-94); Mean Platelet Vol. 10.9 fl (6.2-12.0); Monocyte# 1.06 X10^3/uL; Monocyte% 8.5 % (0-10); NRBC Flagged by Analyzer 0 % (0-5); Neutrophil # 6.24 X10^3/uL (2.7-7.7); Neutrophil % 49.9 % (47-70); Platelet Count 236 K/mm3 (150-450); RBC Distribution Width CV 13.2 % (11.6-14.6); RBC Distribution Width SD 46.5 fl (35.1-43.9); Red Blood Count 4.15 M/mm3 (4.6-6.2); White Blood Count 12.5 K/mm3 (4.4-11.0)
[2019-12-18 13:19] LABS: Anion Gap 6 (5-15); BUN 56 mg/dL (7-18); BUN/Creat Ratio 30.6 RATIO (10-20); Chloride 109 mmol/L (98-107); Creatinine, Serum 1.83 mg/dL (0.70-1.30); EST Glomerular Filtration Rate 38 mL/min (>60); Est Glom Filt Rate - Afr Amer 46 mL/min (>60); Glucose 105 mg/dL (74-106); Potassium 4.2 mmol/L (3.5-5.1); Sodium Level 142 mmol/L (136-145)
== END | disposition home or self-care (01) ==
LOC: LAB 11:10
PROVIDERS: PCP Family Medicine; Referring Provider Nurse Practitioner Family; Visit Provider Nurse Practitioner Family
DX: E78.5 Hyperlipidemia, unspecified (principal); I10 Essential (primary) hypertension; I25.10 Atherosclerotic heart disease of native coronary artery without angina pectoris; I48.0 Paroxysmal atrial fibrillation; Z95.1 Presence of aortocoronary bypass graft
CPT/HCPCS: 36415; 80048; 85025

== ENCOUNTER 2019-12-25 07:08 | Day surgery (SDC) | payer OTHER, MEDICARE, SELFPAY ==
[2019-12-07 15:18] VITALS: BMI 23.9
[2019-12-24 10:53] VITALS: BMI 23.9
--- NOTE | 2019-12-25 07:53 | PCM.HP.BLA ---
Problem List (1) Abnormal stress test Status: Acute (2) CAD (coronary artery disease) Status: Chronic Qualifiers: Coronary Disease-Associated Artery/Lesion type: nez perce artery [place] vs. transplanted heart: nez perce heart (3) H/O coronary artery bypass surgery Status: Chronic Comment: CABG x 5 BLUE-LAD, Sequential SVG-PLB and PDA, SVG-D1 and SVG-Lat Cx w/ the proximal anastomosis on the SVG-D1 04/04/2001 @ [facility]; (4) Hyperlipidemia Status: Chronic Qualifiers: (5) Hypertension Status: Chronic Qualifiers: History and Physical Date of Admission: 12/25/19 [facility] [address] [place] [address] OFFICE VISIT Date of Service: 12/07/19 MR#: [id number] Acct: [id number] Name: KT STILES Rep #: [id number] : 1935 Provider: MEKHI Browne Age/Sex: 84/M Location: [facility] [place] Status: Signed HPI [facility] History of Present Illness Details: KT STILES, is a 84 M who presents to the office today for establishment of cardiac care. He is a former patient of Dr. Maza. Patient has a history of coronary artery disease status post CABG ?5 in 2001 at [facility], peripheral vascular disease, hypertension, nondiabetic, peripheral vascular disease, paroxysmal atrial fibrillation, hypercholesterolemia, and mitral valve prolapse with insufficiency. Patient is a previous [id number] smoking history and quit around 20 years ago. Patient underwent an echocardiogram on 02/23/14 in [place] which demonstrated an EF of 50%, with basal inferior hypokinesis, probable mitral valve prolapse of the posterior leaflet, posterior directed mild MR, RVSP of approximately 38 mmHg and an moderate dilatation of the left atrium at 5 cm. He underwent a noninvasive nuclear stress test in [place] as well on 02/23/14. Patient reportedly had a repeat echocardiogram and stress test in February 2017. 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 He states at night, when sleeping on left side he notes SOB. He states over the last 6 months he has had noticed worsening SOB. This occurs with simple activity. This improves with rest. He notes prior to CABG he noted SOB and chest, but worse then it feels now. He notes bilateral lower extremity edema. He notes orthopnea when lying on his back. He states noting an increase in fatigue. He denies chest, arm, jaw, or neck discomfort. His exercise tolerance is stable. He denies symptoms of palpitations, lightheadedness, dizziness, near syncope, or syncopal episodes. He denies claudication issues. He denies orthopnea, PND, fever, chills, blood in urine, blood in stool, or myalgia. Intake Vital Signs 12/07/19 Height 5 ft 10 in 12/07/19 Weight: 167 lb 12/07/19 BP 121/68 H 12/07/19 Blood Pressure Location Lt brachial 12/07/19 Position Sitting 12/07/19 Respiration 18 12/07/19 Pulse 60 12/07/19 Pulse Source Monitor 12/07/19 Pulse Oximetry (%) 100 12/07/19 BMI 21.5 Intake Visit Reasons: overdue for OV/ SOB Service Center Appraiser Required: No Accompanied by: none Is patient in pain?: No Allergies No Known Allergies Allergy (Verified 12/07/19 15:19) Medications Finasteride [Proscar] 5 mg PO DAILY 09/04/13 [History Confirmed 12/07/19] Multivit-Min/FA/Lycopene/Lut [Centrum Silver Tablet] 1 ea PO DAILY 09/04/13 [History Confirmed 12/07/19] Aspirin [Aspirin, Baby] 81 mg PO DAILY@0800 08/30/14 [History Confirmed 12/07/19] ursodiol 500 mg tablet 500 mg PO BID 08/07/18 [History Confirmed 12/07/19] levothyroxine 25 mcg tablet 25 mcg PO DAILY 12/29/18 [History Confirmed 12/07/19] losartan 50 mg-hydrochlorothiazide 12.5 mg tablet 1 tab PO DAILY #90 tab 04/14/19 [Rx Confirmed 12/07/19] amlodipine 5 mg tablet 5 mg PO QDAY #90 tab 08/05/19 [Rx Confirmed 12/07/19] metoprolol tartrate 50 mg tablet 50 mg PO BID #180 tab 08/31/19 [Rx Confirmed 12/07/19] atorvastatin 80 mg tablet 80 mg PO QHS 12/07/19 [History Confirmed 12/07/19] furosemide 40 mg tablet 40 mg PO DAILY PRN #7 tab 12/07/19 [Rx Confirmed 12/07/19] omeprazole 40 mg capsule,delayed release 40 mg PO DAILY 12/07/19 [History Confirmed 12/07/19] potassium gluconate 600 mg (99 mg) tablet 600 mg PO DAILY 12/07/19 [History] [facility] Medical History Carotid artery stenosis (Chronic) Paroxysmal atrial fibrillation (Chronic) Atherosclerosis of coronary artery of nez perce heart without angina pectoris (Chronic) Old inferior wall myocardial infarction (Chronic) Nonrheumatic mitral valve prolapse (Chronic) Nonrheumatic mitral (valve) insufficiency (Chronic) Secondary pulmonary arterial hypertension (Chronic) Hyperlipidemia (Chronic) Hypertension (Chronic) Antimitochondrial antibody positive (Acute) Colon polyp (Acute) Gastritis and duodenitis (Acute) Hypothyroidism (Acute) Impaired fasting blood sugar (Acute) Umbilical hernia (Acute) BPH (benign prostatic hyperplasia) (Chronic) PVD (peripheral vascular disease) (Chronic) Type 2 diabetes mellitus without complications (Chronic) Surgical History (Updated 12/07/19 @ 15:39 by Serg Browne COMPLIANCE CONSULTANT, COMPLIANCE CONSULTANT-C) H/O coronary artery bypass surgery (Chronic) H/O cataract extraction (Acute) History of partial colectomy (Acute) History of colectomy (Chronic) History of herniorrhaphy (Chronic) Hx of cholecystectomy (Chronic) S/P TURP (Chronic) Social History (Updated 12/07/19 @ 16:04 by Serg Browne COMPLIANCE CONSULTANT, COMPLIANCE CONSULTANT-C) Smoking Status: Former smoker how long ago did patient quit smokin years ago alcohol intake: never caffeine: Yes Type: coffee Number of servings: 1 ROS Const Const: Positive for fatigue; negative for weakness, body ache, fever(s) or chills ENT ENT: Negative for dizziness Cardio Chest Pain: No Palpitations: No Edema: Bilateral Muscle aches with walking: None Resp Respiratory: Positive for SOB with activity and SOB orthopnea\SOB lying down; negative for SOB at rest, Cough or paroxysmal nocturnal dyspnea GI GI: Negative nausea, vomiting blood/hematemesis, bright, red blood in stools or black,tarry stools : Negative for hematuria or frequent nighttime urination/ nocturia Musc Musc: Negative for muscle aches/ myalgia Skin Skin: Negative non-healing lesions or rash Neuro Neuro: Negative for dizziness, lightheadedness, near syncope, syncope, orthostatic symptoms or weakness Endo Endo: Positive for fatigue Allergy Allergy/Immunology: Negative for rash Cardiology Exam Const Appearance: cooperative, healthy appearing, comfortable and no acute distress Nutritional Appearance: average body habitus and well nourished Orientation: alert, awake and oriented x3 Head Head: normal to inspection Ears: hearing grossly normal bilaterally Nose: external nose normal Face and Sinus: face symmetric Mouth: oral mucosae normal Eyes General: appearance normal, both eyes and all related structures Eyelids: eyelids normal EOM: EOM intact bilaterally Neck Neck: normal visual inspection and no JVD Carotids: normal carotid upstroke Chest Chest inspection: normal inspection of the chest, symmetric chest movement and normal respiratory effort; negative cough Auscultation: Bilateral: Clear to Auscultation Cardio Palpation: normal PMI Rate: regular rate Rhythm: regular rhythm Heart sounds: S1 normal and S2 normal; negative rub, gallop or murmur GI GI: normal to inspection Neuro General: alert, awake, oriented x3 and CN's II-XI intact bilaterally Skin Skin: no rashes or lesions noted Extremities Pulses: Normal: Right Posterior Tibial Pulse, Left Posterior Tibial Pulse, Right Radial Pulse, Left Radial Pulse Lower Extremity Edema: +1: Bilateral Psych Psychological: normal affect Assessment & Plan 1. Atherosclerosis of nez perce coronary artery of nez perce heart without angina pectoris I25.10 Plan Patient denies exertional chest, arm, jaw, or neck pain suggestive of angina. However, his shortness of breath with activity and ongoing fatigue may be anginal equivalents. His most recent echocardiogram from 12/04/2019 showed an ejection fraction of 40%. His stress test from 12/04/2019 showed an element of mild denton-infarct related myocardial ischemia in the inferior apical/lateral apical segments. Thus, patient's shortness of breath may be an anginal equivalent. He was asked to take Lasix 40 mg p.o. daily for 2 days to see if this improves his fluid volume status. 2. H/O coronary artery bypass surgery Z95.1 CABG x 5 BLUE-LAD, Sequential SVG-PLB and PDA, SVG-D1 and SVG-Lat Cx w/ the proximal anastomosis on the SVG-D1 04/04/2001 @ [facility]; Plan His CABG report will be requested for continuity of care as well as reference in case patient does not respond to medical therapy and requires heart catheterization. 3. Ischemic cardiomyopathy I25.5 Plan His most recent echocardiogram showed reduced ejection fraction of 40%. Patient's BNP previously was noted to be slightly elevated. Due to ongoing symptoms, he was asked to trial 2 days of Lasix therapy to improve volume status and hopefully shortness of breath. If this is successful, we can consider further medication adjustments. This may include dropping Hyzaar and continuing with losartan and Lasix. An alternative option could include changing his metoprolol to Coreg therapy. Entresto is also an alternative option. Also changes will need to bear in mind kidney function as well as blood pressure. Thus, his amlodipine may need to be adjusted to compensate for blood pressure. He will return to office in approximately 3 weeks to evaluate overall progress. Hopefully, by that time his bypass report will be received and if symptoms continue, we can reconsider heart catheterization due to stress test results. 4. Paroxysmal atrial fibrillation I48.0 Plan This appears stable. He appears to be in a regular rhythm on exam. He will continue current beta-gerri therapy for rate control. He is currently not on oral anticoagulation due to maintaining sinus rhythm. 5. Nonrheumatic mitral (valve) insufficiency I34.0 6. Essential hypertension I10 Plan Patient's blood pressure is well-controlled. We will continue to monitor. We will not make any medication regimen changes. 7. Pure hypercholesterolemia E78.00 Plan He will continue current high-dose statin medication. 8. Bilateral carotid artery stenosis I65.23 Plan He will continue current medical therapy. The exact details of his carotid artery disease are unclear at this time. This will need to be investigated in the future. Plan Detail Other Medications New: furosemide (Lasix) 40 mg PO DAILY PRN 7 tabs 0RF SOB Additional Comments Thank you for allowing us to participate in the patients plan of care, if you have any questions please do not hesitate to call. This note was generated using a voice recognition system and there may be incorrect words, spelling or punctuation that were not noted when reviewing the office note prior to saving. Follow Up 3 Weeks (COMPLIANCE CONSULTANT/PA) Coding Level of Care Code Off vis,est,level 3 Diagnoses Atherosclerosis of nez perce coronary artery of nez perce heart without angina pectoris I25.10 ??Coronary Disease-Associated Artery/Lesion type: nez perce artery H/O coronary artery bypass surgery Z95.1 Ischemic cardiomyopathy I25.5 Paroxysmal atrial fibrillation I48.0 Nonrheumatic mitral (valve) insufficiency I34.0 Essential hypertension I10 ??Hypertension type: essential hypertension Pure hypercholesterolemia E78.00 ??Hyperlipidemia type: pure hypercholesterolemia Bilateral carotid artery stenosis I65.23 ??Laterality: bilateral Coding Level of Care Code Off vis,est,level 3 Diagnoses Atherosclerosis of nez perce coronary artery of nez perce heart without angina pectoris I25.10 ??Coronary Disease-Associated Artery/Lesion type: ne[place] artery H/O coronary artery bypass surgery Z95.1 Ischemic cardiomyopathy I25.5 Paroxysmal atrial fibrillation I48.0 Nonrheumatic mitral (valve) insufficiency I34.0 Essential hypertension I10 ??Hypertension type: essential hypertension Pure hypercholesterolemia E78.00 ??Hyperlipidemia type: pure hypercholesterolemia Bilateral carotid artery stenosis I65.23 ??Laterality: bilateral Supplemental Info Supplemental Information Echocardiogram from 12/04/2019: Interpretation Summary The study was technically difficult. Contrast injection was performed. Mildly dilated left ventricle. Mild to moderate segmental systolic dysfunction (see wall motion). The estimated ejection fraction is 40 %. The left atrium is mildly enlarged. Mild diffuse mitral valve thickening. Mild focal mitral valve calcification of the posterior leaflet. The mitral valve chordae are thickened and/or calcified. Moderate (2+) eccentric mitral valve insufficiency. Mild to moderate (1-2+) tricuspid valve insufficiency. Mild diffuse aortic valve thickening. Trivial aortic valve insufficiency. Mild-Moderate (1-2+) pulmonic valve insufficiency. Calcified aortic root. Right ventricular systolic pressure estimated to be 38 mmHg. There is evidence of diastolic dysfunction. Stress Test Report Date: 12-04-2019 Procedure: Pharmacologic stress nuclear imaging study Indications: Shortness of breath/dyspnea on exertion Consent: Per the patient Procedure: The patient underwent pharmacologic (Regadenoson) evaluation with a peak heart rate of 80 beats per minute (58%predicted maximal heart rate) and a peak blood pressure of 128/68 mmHg. The baseline ECG demonstrated sinus bradycardia; T wave abnormality. The peak pharmacologic ECG demonstrated no obvious ECG changes. There was an occasional PVC pretest. There was no complaint of chest discomfort during pharmacologic infusion or recovery. The examination was discontinued secondary to completion of protocol. Impression: 1. Pharmacologic (Regadenoson) evaluation 2. Peak pharmacologic ECG with continued T wave abnormality with no obvious ECG changes. 3. There was an occasional PVC pretest. 4. Nuclear images pending Myocardial perfusion imaging study: Technique: The patient was injected with 10.9 millicuries of technetium 99m Cardiolite and subsequently rest SPECT Cardiolite nuclear imaging was obtained in the horizontal long, vertical long, and short axis views. The patient underwent pharmacologic (Regadenoson) evaluation with a peak heart rate of 80 beats per minute (58% percent predicted maximal heart rate) and a peak blood pressure of 128/68 mmHg. The patient was injected with 33.1 millicuries of technetium 99m Cardiolite and subsequently stress SPECT Cardiolite nuclear imaging was obtained in the horizontal long, vertical long, and short axis views. A gated Cardiolite study at peak stress was obtained. Interpretation: Rest and stress SPECT Cardiolite nuclear imaging status post realignment, normalization, and attenuation correction demonstrate the appearance of diminished absence of myocardial perfusion/tracer uptake in portions of the mid to distal inferoseptal, inferior, and inferolateral segments as well as the inferior apical and lateral segments which status post stress appears to be somewhat more prominent in the inferoapical and lateral apical segments. There is diminished end systolic thickening and brightening. The gated Cardiolite study demonstrates diminished myocardial thickening and inward wall motion. The reported LVEF is 16%. Impression: 1. Rest and stress SPECT Cardiolite nuclear imaging demonstrate myocardial perfusion changes compatible with an area of previous myocardial injury/infarction involving portions of the inferoseptal, inferior, inferolateral, inferoapical and lateral apical segments with post stress myocardial perfusion changes appearing compatible with an element of mild denton-infarct related myocardial ischemia in the inferior apical/lateral apical segments. 2. The gated Cardiolite study reports an LVEF of 16%. Labs LDL Cholesterol 44 mg/dL (0-130) 06/19/19 HDL Cholesterol 37 mg/dL (40-) L 06/19/19 Triglycerides 215 mg/dL (-199) H 06/19/19 VLDL Cholesterol 43 mg/dL (5-40) H 06/19/19 Diagnostics Echocardiogram 12/04/19 Stress Test Nuclear Medicine 12/04/19 Stress Test 12/04/19 Chest X-Ray 11/18/19 12/07/19 [id number] <Electronically signed by Serg Browne NP COMPLIANCE CONSULTANT-C> Date Serg Beatriz Pavan CHOI COMPLIANCE CONSULTANT-C Cosigner Signature: Date (if applicable) CC: Dr. Samir Abdi MD ~ I have examined the patient the following changes are noted: The patient's case has been reviewed. He has undergone a recent evaluation with transthoracic echocardiogram and an stress nuclear imaging study. The results are as noted. Echocardiogram: 12-04-2019 Interpretation Summary The study was technically difficult. Contrast injection was performed. Mildly dilated left ventricle. Mild to moderate segmental systolic dysfunction (see wall motion). The estimated ejection fraction is 40 %. The left atrium is mildly enlarged. Mild diffuse mitral valve thickening. Mild focal mitral valve calcification of the posterior leaflet. The mitral valve chordae are thickened and/or calcified. Moderate (2+) eccentric mitral valve insufficiency. Mild to moderate (1-2+) tricuspid valve insufficiency. Mild diffuse aortic valve thickening. Trivial aortic valve insufficiency. Mild-Moderate (1-2+) pulmonic valve insufficiency. Calcified aortic root. Right ventricular systolic pressure estimated to be 38 mmHg. There is evidence of diastolic dysfunction. Stress Test Report Date: 12-04-2019 Procedure: Pharmacologic stress nuclear imaging study Indications: Shortness of breath/dyspnea on exertion Consent: Per the patient Procedure: The patient underwent pharmacologic (Regadenoson) evaluation with a peak heart rate of 80 beats per minute (58%predicted maximal heart rate) and a peak blood pressure of 128/68 mmHg. The baseline ECG demonstrated sinus bradycardia; T wave abnormality. The peak pharmacologic ECG demonstrated no obvious ECG changes. There was an occasional PVC pretest. There was no complaint of chest discomfort during pharmacologic infusion or recovery. The examination was discontinued secondary to completion of protocol. Impression: 1. Pharmacologic (Regadenoson) evaluation 2. Peak pharmacologic ECG with continued T wave abnormality with no obvious ECG changes. 3. There was an occasional PVC pretest. 4. Nuclear images pending Myocardial perfusion imaging study: Technique: The patient was injected with 10.9 millicuries of technetium 99m Cardiolite and subsequently rest SPECT Cardiolite nuclear imaging was obtained in the horizontal long, vertical long, and short axis views. The patient underwent pharmacologic (Regadenoson) evaluation with a peak heart rate of 80 beats per minute (58% percent predicted maximal heart rate) and a peak blood pressure of 128/68 mmHg. The patient was injected with 33.1 millicuries of technetium 99m Cardiolite and subsequently stress SPECT Cardiolite nuclear imaging was obtained in the horizontal long, vertical long, and short axis views. A gated Cardiolite study at peak stress was obtained. Interpretation: Rest and stress SPECT Cardiolite nuclear imaging status post realignment, normalization, and attenuation correction demonstrate the appearance of diminished absence of myocardial perfusion/tracer uptake in portions of the mid to distal inferoseptal, inferior, and inferolateral segments as well as the inferior apical and lateral segments which status post stress appears to be somewhat more prominent in the inferoapical and lateral apical segments. There is diminished end systolic thickening and brightening. The gated Cardiolite study demonstrates diminished myocardial thickening and inward wall motion. The reported LVEF is 16%. Impression: 1. Rest and stress SPECT Cardiolite nuclear imaging demonstrate myocardial perfusion changes compatible with an area of previous myocardial injury/infarction involving portions of the inferoseptal, inferior, inferolateral, inferoapical and lateral apical segments with post stress myocardial perfusion changes appearing compatible with an element of mild denton-infarct related myocardial ischemia in the inferior apical/lateral apical segments. 2. The gated Cardiolite study reports an LVEF of 16%. The patient's case has been discussed and reviewed. The recommendation has been made for further evaluation with diagnostic cardiac catheterization. The procedure and risks were discussed with the patient. He is agreeable to this approach. Procedure Criteria Procedure Type: Elective COVID Risk Discussion: The surgeon/proceduralist and patient have discussed in detail the risk of exposure to and/or potential harm posed by the COVID-19 virus with having a surgery/procedure at this time versus the risk of delaying the surgery/procedure. It is not possible to know either the risk of delaying the surgery or procedure or chance of getting an infection with perfect accuracy, but a joint decision was made between the patient and the surgeon/proceduralist to proceed at this time with the scheduled surgery/procedure as indicated on the consent form.
--- NOTE | 2019-12-25 11:12 | CL.D_ITS ---
Patient Name: KT STILES Study Date: 12/25/2019 Performing: David Buck MD Ht: 70 inches 177.8 cm : 1935 Wt: 167 lbs 75.75 kg Age: 84 Gender: male BSA: 1.93 PROCEDURE(S) PERFORMED [id number] CLINICAL PROFILE AND INDICATIONS Indications: Suspected CAD, LV Dysfunction Heart Failure: None Stress/Imaging Date: 12/04/2019 Angina Classification Anginal Classification w/in 2 Weeks: Anginal Equivalent Dyspnea CAD Presentations: Other: dsypnea on exertion CONCLUSIONS Elevated Left Ventricular End Diastolic Pressure [place] Multivessel CAD BLUE to LAD: patent SVG to DX1: patent SVG to LCX arising from the proximal portion of the SVG to the DX1: proximally occluded SVG to RPDA: patent with proximal 50 % stenosis with the sequential segment to the RPL occluded RECOMMENDATIONS Risk factor modification Medical therapy Case discussed / reviewed with Dr. Duran of Interventional Cardiology DESCRIPTION OF PROCEDURE The patient arrived to the procedure lab. The risks and benefits of the procedure as well as a full d escription of our services here and current unavailability of surgical backup were fully explained to the patient and/or their significant other prior to the catheterization. The Timeout was completed, verifying the correct patient and procedure. The patient's procedural site was prepped and draped in the usual fashion. Local anesthetic was given subcutaneously to right groin region with Lidocaine 2%. Using a modified Seldinger technique, arterial access was obtained via the right femoral artery, a 4 Fr sheath was inserted Left Coronary Artery selective angiography was performed in multiple views us ing a 4 Fr. JL5 catheter. Right Coronary Artery selective angiography was then performed in multiple views using a 4 Fr. 3DRC catheter. Saphenous Vein graft to the DIAG 1 selective angiography was perfo rmed in multiple views using a 4 Fr. 3DRC catheter. Saphenous Vein graft to the RPDA selective angiography was performed in multiple views using a 4 Fr. 3DRC catheter. Left internal mamm christi artery graft to the LAD selective angiography was performed in multiple views using a 4 Fr. JR4 c atheter. Left internal mammary artery graft to the LAD selective angiography was performed in multipl e views using a 4 Fr. IM catheter. Saphenous Vein graft to the RPDA selective angiography was perform ed in multiple views using a 4 Fr. MPA 2 catheter. LV to AO pullback pressures were then recorded.The arterial sheath was pulled and manual compression applied until hemostasis is achieved. CORONARY ANGIOGRAPHY DOMINANCE: Right Dominant LEFT HEART ASSESSMENT Left Ventricular Ejection Fraction: Not assessed Elevated Left Ventricular End Diastolic Pressure LVEDP: 24 mmHg LEFT MAIN: Mild calcification, Mild luminal irregularities LEFT ANTERIOR DESCENDING ARTERY: OSTIAL LAD: subtotally occluded PROX LAD: Moderate calcification MID LAD: mid -distal vessel: filling from antegrade flow and BLUE graft flow with no angiographically significant disease distal to the graft anastomosis DIAGONAL 1: Proximal - subtotally occluded: filling from the SVG graft with no angiographically signi ficant disease distal to the SVG anastomosis CIRCUMFLEX ARTERY: Severe calcification, severe difuse disease OSTIAL CIRC: subtotally occluded RIGHT CORONARY ARTERY: PROX RCA: is occluded GRAFTS: BLUE graft to the Mid LAD is patent Saphenous Vein graft to the 1st Diagonal is patent Saphenous Vein graft to the RPDA is patent with proximal 50% stenosis with the sequential segment to the RPL occcluded Saphenous Vein graft to the CIRC SVG to the LCX arising from the SVG to the DX1: proximally occluded COMPLICATIONS No Complications PROCEDURE MEDICATIONS Versed 1 mg IV Oxygen: 2 L/min via nasal cannula Baby Aspirin (81mg) 1 Tabs PO @ 12/25/2019 07:26:02 IV Fluids: .9 NaCl IV started @ 100 ml/hr 12/25/2019 07:27:51 SUMMARY OF HEMODYNAMIC DATA Time AIR REST ECG 07:30:27 AO 134/54 (87) SA 09:42:41 LV 152/0, 26 10:20:50 LV 154/-1, 24 10:20:57 LVp 157/0, 25 10:21:03 AOp 156/62 (95) 10:21:08 Signed By David Buck MD On 12/25/2019 11:11:24 David Buck MD
== END 2019-12-25 14:50 | disposition home or self-care (01) ==
LOC: CLSP 07:08
PROVIDERS: PCP Family Medicine; Referring Provider Internal Medicine Cardiovascular Disease; Visit Provider Internal Medicine Cardiovascular Disease
DX: I25.10 Atherosclerotic heart disease of native coronary artery without angina pectoris (principal); R94.39 Abnormal result of other cardiovascular function study; I08.1 Rheumatic disorders of both mitral and tricuspid valves; I65.23 Occlusion and stenosis of bilateral carotid arteries; I25.5 Ischemic cardiomyopathy; E78.5 Hyperlipidemia, unspecified; I10 Essential (primary) hypertension; I73.9 Peripheral vascular disease, unspecified; I48.0 Paroxysmal atrial fibrillation; E03.9 Hypothyroidism, unspecified; Z95.1 Presence of aortocoronary bypass graft; Z87.891 Personal history of nicotine dependence; Z79.899 Other long term (current) drug therapy
CPT/HCPCS: 93455; 99152; 99153; J7040; C1769; C1894; Q9967

== ENCOUNTER → 2020-03-14 09:32 | Outpatient (CLI) | payer OTHER, MEDICARE, SELFPAY ==
[2019-01-11 21:13] VITALS: BMI 21.5
[2020-01-01 08:38] VITALS: BMI 24.0
--- NOTE | 2020-03-14 09:40 | US_ITS ---
STUDY: ABDOMINAL ULTRASOUND REASON FOR EXAM: Male, 84 years old. CIRRHOSIS TECHNIQUE: Transabdominal ultrasound was performed with real-time and static hernández scale imaging. TECHNICAL QUALITY: Adequate. COMPARISON: 06/14/2016 FINDINGS: Liver: The liver measures 14.7 cm. There is normal echogenicity of the liver. The bile ducts are within normal limits. There is hepatic color flow. The direction of portal flow is hepatopetal. There is no demonstrated mass lesion. Portal vein measurement: Gallbladder: The patient is status post cholecystectomy.. Common Bile Duct (C.B.D.): The common bile duct measures 4 mm. Pancreas: There is nonvisualization of the pancreas.. Spleen: Normal size of the spleen. The spleen measures 9.1 cm. Right Kidney: Normal size of the right kidney. The right kidney measures 8.5 cm. Normal renal cortex. The right cortex measures 1.1 cm. There is no demonstrated renal mass or cyst. There is no right hydronephrosis. Left Kidney: Normal size of the left kidney. The left kidney measures 8.6 cm. Normal renal cortex. The left cortex measures 0.9 cm. There is no demonstrated renal mass or cyst. There is no left hydronephrosis. Aorta: No abdominal aortic aneurysm. I.V.C.: The IVC is patent. There is no ascites. US/Abdomen Complete IMPRESSION: Normal abdominal ultrasound examination. Electronically Signed: Wellington Keita MD at 8:40 EST Tel , Service support ,
== END ==
PROVIDERS: PCP Family Medicine
DX: K74.60 Unspecified cirrhosis of liver (principal); B19.10 Unspecified viral hepatitis B without hepatic coma; R63.4 Abnormal weight loss; R94.5 Abnormal results of liver function studies
CPT/HCPCS: 76700

== ENCOUNTER → 2020-09-09 09:39 | Outpatient (CLI) | payer OTHER, MEDICARE, SELFPAY ==
[2020-09-09 08:55] VITALS: BMI 23.6
[2020-09-09 10:54] LABS: AST(SGOT) 20 U/L (15-37); Alanine Aminotransfer ALT/SGPT 22 U/L (16-61); Albumin, Serum 3.7 g/dL (3.2-5.0); Alkaline Phosphatase 86 U/L (45-117); Bilirubin, Direct 0.18 mg/dL (0.00-0.30); Cholesterol 110 mg/dL (200); Globulin 3.6 g/dL (2.2-4.2); High Density Lipoprotein 38 mg/dL; Protein, Total 7.3 g/dL (6.4-8.2); Triglycerides 103 mg/dL; Very Low Density Lipoprotein 21 mg/dL (5-40)
== END ==
PROVIDERS: PCP Family Medicine; Visit Provider Internal Medicine Cardiovascular Disease
DX: E78.00 Pure hypercholesterolemia, unspecified (principal)
CPT/HCPCS: 36415; 80061; 80076

== ENCOUNTER 2021-04-03 08:31 | Outpatient (CLI) | payer OTHER, MEDICARE, SELFPAY ==
[2021-04-03 10:19] LABS: AST(SGOT) 18 U/L (15-37); Alanine Aminotransfer ALT/SGPT 24 U/L (16-61); Albumin, Serum 3.5 g/dL (3.2-5.0); Alkaline Phosphatase 78 U/L (45-117); Bilirubin, Direct 0.17 mg/dL (0.00-0.30); Cholesterol 113 mg/dL (200); Globulin 3.7 g/dL (2.2-4.2); High Density Lipoprotein 38 mg/dL; Protein, Total 7.2 g/dL (6.4-8.2); Triglycerides 131 mg/dL; Very Low Density Lipoprotein 26 mg/dL (5-40)
== END 2021-04-03 23:59 | disposition short-term general hospital (02) ==
LOC: LAB 08:33
PROVIDERS: PCP Family Medicine; Referring Provider Internal Medicine Cardiovascular Disease; Visit Provider Internal Medicine Cardiovascular Disease
DX: E78.5 Hyperlipidemia, unspecified (principal)
CPT/HCPCS: 36415; 80061; 80076

== ENCOUNTER → 2021-08-16 | Outpatient (CLI) | payer OTHER, MEDICARE, SELFPAY ==
[2021-08-16 09:42] LABS: AST(SGOT) 17 U/L (15-37); Alanine Aminotransfer ALT/SGPT 25 U/L (16-61); Albumin, Serum 3.5 g/dL (3.2-5.0); Alkaline Phosphatase 81 U/L (45-117); Bilirubin, Direct 0.21 mg/dL (0.00-0.30); Cholesterol 110 mg/dL (200); Globulin 3.5 g/dL (2.2-4.2); High Density Lipoprotein 37 mg/dL; Triglycerides 122 mg/dL; Very Low Density Lipoprotein 24 mg/dL (5-40)
[2021-08-17 11:08] LABS: AFP, Tumor Marker 2.2 ng/mL (0.0-6.4)
== END | disposition home or self-care (01) ==
LOC: LAB 07:35
PROVIDERS: Internal Medicine Cardiovascular Disease; PCP Family Medicine; Visit Provider Internal Medicine Gastroenterology
DX: K74.60 Unspecified cirrhosis of liver (principal); E78.00 Pure hypercholesterolemia, unspecified; E78.5 Hyperlipidemia, unspecified
CPT/HCPCS: 36415; 80061; 80076; 82105

== ENCOUNTER → 2021-09-20 | Outpatient (CLI) | payer OTHER, MEDICARE, SELFPAY ==
--- NOTE | 2021-09-20 12:51 | US_ITS ---
STUDY: RENAL ULTRASOUND - COMPLETE REASON FOR EXAM: Male, 86 years old. RIGHT FLANK PAIN for 2 months. TECHNIQUE: Ultrasound evaluation of the kidneys was performed with real-time and static rivero-scale imaging. COMPARISON: Comparison is made with prior study dated 01/30/2010. FINDINGS: RIGHT KIDNEY: Normal location of the right kidney, which is normal in size. The right kidney measures 9.2 cm x 4.5cm x 6.1 cm. There is a normal cortex of the right kidney. The renal cortex measures 1.4 cm. There is no right renal mass or cyst. There are no right renal calculi. There is no right hydronephrosis. DISTAL RIGHT URETER: There is non-visualization of the distal right ureter. There is no demonstrated right ureterovesical junction calculus. There is a visualized right ureteral jet. LEFT KIDNEY: Normal location of the left kidney, which is normal in size. The left kidney measures 9.1 synovitis for 0.7 cm x 4.2 cm. There is a normal cortex of the left kidney. The renal cortex measures 1.1 cm. There is no left renal mass or cyst. There are no left renal calculi. There is no left hydronephrosis. DISTAL LEFT URETER: There is non-visualization of the distal left ureter. There is no demonstrated left ureterovesical junction calculus. There is a visualized left ureteral jet. BLADDER: The distended urinary bladder has a volume of 57 ml. There is a normal wall thickness of the distended urinary bladder. There is no demonstrated mass within the urinary bladder. There are no demonstrated bladder calculi. Prostate is enlarged measuring 6.3 cm x 5.3 cm x 4.8 cm. US/Kidney and Bladder IMPRESSION: Prostatic enlargement. Electronically Signed: Reynaldo Cruz MD at 14:05 EDT ,
== END | disposition home or self-care (01) ==
LOC: US 12:49
PROVIDERS: PCP Family Medicine; Referring Provider Family Medicine; Visit Provider Family Medicine
DX: N40.0 Benign prostatic hyperplasia without lower urinary tract symptoms (principal); R07.81 Pleurodynia; M54.50 Low back pain, unspecified
CPT/HCPCS: 76770

== ENCOUNTER → 2021-12-08 | Outpatient (CLI) | payer OTHER, MEDICARE, SELFPAY ==
[2021-12-14 10:37] LABS: Calprotectin, Stool <16 ug/g (0-120)
== END | disposition home or self-care (01) ==
LOC: LAB 10:35 → LABSPEC 10:42
PROVIDERS: PCP Family Medicine; Visit Provider Internal Medicine Gastroenterology
DX: R19.4 Change in bowel habit (principal)
CPT/HCPCS: 83993; 87493; 87506

== ENCOUNTER → 2022-05-10 | Outpatient (CLI) | payer BC, MEDICARE, SELFPAY ==
[2022-05-10 10:23] LABS: Absolute Lymphocyte Count 3.15 X10^3/uL (0.83-4.51); Absolute Neutrophil Count 6.5 X10^3/uL (2.0-7.7); Basophil# 0.03 X10^3/uL; Basophil% 0.3 % (0-1); Eosinophil# 0.23 X10^3/uL; Eosinophils% 2.1 % (0-5); Hemoglobin 13.4 g/dL (13.0-16.5); Lymphocyte # 3.15 X10^3/ul (0.83-4.51); Lymphocyte % 28.6 % (19-41); Mean Corp Hgb Conc 32.7 g/dL (32-36); Mean Corpuscular Hgb 30.6 pg (27.0-32.0); Mean Corpuscular Volume 93.6 fL (80-94); Mean Platelet Vol. 10.8 fl (6.2-12.0); Monocyte# 1.04 X10^3/uL; Monocyte% 9.4 % (0-10); NRBC Flagged by Analyzer 0 % (0-5); Neutrophil # 6.51 X10^3/uL (2.7-7.7); Neutrophil % 59.1 % (47-70); Platelet Count 196 K/mm3 (150-450); RBC Distribution Width CV 13.2 % (11.6-14.6); RBC Distribution Width SD 45.1 fl (35.1-43.9); Red Blood Count 4.38 M/mm3 (4.6-6.2)
[2022-05-10 10:47] LABS: AST(SGOT) 18 U/L (15-37); Alanine Aminotransfer ALT/SGPT 23 U/L (16-61); Albumin, Serum 3.4 g/dL (3.2-5.0); Alkaline Phosphatase 77 U/L (45-117); Bilirubin, Direct 0.17 mg/dL (0.00-0.30); Cholesterol 106 mg/dL (200); Globulin 3.3 g/dL (2.2-4.2); High Density Lipoprotein 37 mg/dL; Protein, Total 6.7 g/dL (6.4-8.2); Triglycerides 127 mg/dL; Very Low Density Lipoprotein 25 mg/dL (5-40)
[2022-05-10 10:55] LABS: AST(SGOT) 20 U/L (15-37); Alanine Aminotransfer ALT/SGPT 23 U/L (16-61); Albumin, Serum 3.4 g/dL (3.2-5.0); Alkaline Phosphatase 77 U/L (45-117); Anion Gap 8 (5-15); BUN 42 mg/dL (7-18); BUN/Creat Ratio 27.8 RATIO (10-20); Calcium,Total 9.3 mg/dL (8.5-10.1); Chloride 108 mmol/L (98-107); Creatinine, Serum 1.51 mg/dL (0.70-1.30); EST Glomerular Filtration Rate 47 mL/min (>60); Est Glom Filt Rate - Afr Amer 57 mL/min (>60); Globulin 3.4 g/dL (2.2-4.2); Glucose 93 mg/dL (74-106); Protein, Total 6.8 g/dL (6.4-8.2); Sodium Level 144 mmol/L (136-145)
== END | disposition home or self-care (01) ==
LOC: LAB 09:05
PROVIDERS: Internal Medicine Cardiovascular Disease; PCP Family Medicine; Visit Provider Physician Assistant Medical
DX: I25.10 Atherosclerotic heart disease of native coronary artery without angina pectoris (principal); E78.00 Pure hypercholesterolemia, unspecified
CPT/HCPCS: 36415; 80053; 80061; 80076; 85025

== ENCOUNTER → 2022-05-18 | Outpatient (CLI) | payer BC, MEDICARE, SELFPAY ==
[2022-05-18 08:10] LABS: Absolute Lymphocyte Count 4.33 X10^3/uL (0.83-4.51); Absolute Neutrophil Count 4.7 X10^3/uL (2.0-7.7); Basophil# 0.04 X10^3/uL; Basophil% 0.4 % (0-1); Eosinophil# 0.25 X10^3/uL; Eosinophils% 2.5 % (0-5); Hematocrit 41.4 % (40-54); Lymphocyte # 4.33 X10^3/ul (0.83-4.51); Lymphocyte % 42.5 % (19-41); Mean Corp Hgb Conc 33.8 g/dL (32-36); Mean Corpuscular Hgb 31.1 pg (27.0-32.0); Mean Platelet Vol. 9.9 fl (6.2-12.0); Monocyte# 0.85 X10^3/uL; Monocyte% 8.3 % (0-10); NRBC Flagged by Analyzer 0 % (0-5); Neutrophil # 4.68 X10^3/uL (2.7-7.7); Neutrophil % 45.9 % (47-70); Platelet Count 181 K/mm3 (150-450); RBC Distribution Width CV 13.2 % (11.6-14.6); RBC Distribution Width SD 44.6 fl (35.1-43.9); White Blood Count 10.2 K/mm3 (4.4-11.0)
[2022-05-18 08:21] LABS: International Normalized Ratio 1.2; Prothrombin Time (Protime)PT. 14.6 SECONDS (11.7-14.9)
[2022-05-18 08:49] LABS: Vitamin B12 682 pg/mL (211-911); Vitamin D,25 Hydroxy 49.7 ng/mL
[2022-05-18 08:56] LABS: AST(SGOT) 19 U/L (15-37); Alanine Aminotransfer ALT/SGPT 22 U/L (16-61); Albumin, Serum 3.6 g/dL (3.2-5.0); Alkaline Phosphatase 77 U/L (45-117); Anion Gap 6 (5-15); BUN 43 mg/dL (7-18); BUN/Creat Ratio 30.5 RATIO (10-20); Bilirubin, Direct 0.15 mg/dL (0.00-0.30); Calcium,Total 9.5 mg/dL (8.5-10.1); Chloride 110 mmol/L (98-107); Cholesterol 115 mg/dL (200); Creatinine, Serum 1.41 mg/dL (0.70-1.30); EST Glomerular Filtration Rate 51 mL/min (>60); Est Glom Filt Rate - Afr Amer 61 mL/min (>60); GGTP 38 U/L (15-85); Globulin 3.5 g/dL (2.2-4.2); Glucose 107 mg/dL (74-106); High Density Lipoprotein 43 mg/dL; Potassium 3.9 mmol/L (3.5-5.1); Protein, Total 7.1 g/dL (6.4-8.2); Sodium Level 143 mmol/L (136-145); Triglycerides 118 mg/dL; Very Low Density Lipoprotein 24 mg/dL (5-40)
[2022-05-29 15:49] LABS: AFP, Tumor Marker 2.1 ng/mL (0.0-6.4); Vitamin A, Retinol 67.2 ug/dL (22.0-69.5)
== END | disposition home or self-care (01) ==
LOC: LAB 07:47
PROVIDERS: PCP Family Medicine; Referring Provider Internal Medicine Gastroenterology; Visit Provider Internal Medicine Gastroenterology
DX: R19.7 Diarrhea, unspecified (principal)
CPT/HCPCS: 36415; 80048; 80061; 80076; 82105; 82306; 82607; 82977; 84443; 84590; 85025; 85610

== ENCOUNTER → 2022-05-19 | Outpatient (CLI) | payer BC, MEDICARE, SELFPAY ==
[2022-05-19 11:28] LABS: AST(SGOT) 20 U/L (15-37); Alanine Aminotransfer ALT/SGPT 25 U/L (16-61); Albumin, Serum 3.4 g/dL (3.2-5.0); Alkaline Phosphatase 74 U/L (45-117); Bilirubin, Direct 0.24 mg/dL (0.00-0.30); Cholesterol 110 mg/dL (200); Globulin 3.4 g/dL (2.2-4.2); High Density Lipoprotein 40 mg/dL; Protein, Total 6.8 g/dL (6.4-8.2); Triglycerides 110 mg/dL; Very Low Density Lipoprotein 22 mg/dL (5-40)
[2022-05-23 08:15] LABS: Pancreatic Elastase, Fecal 225 (>200)
== END | disposition home or self-care (01) ==
LOC: LAB 09:00
PROVIDERS: Internal Medicine Cardiovascular Disease; PCP Family Medicine; Visit Provider Internal Medicine Gastroenterology
DX: R19.7 Diarrhea, unspecified (principal); E78.00 Pure hypercholesterolemia, unspecified
CPT/HCPCS: 80061; 80076; 82653

== ENCOUNTER → 2022-11-28 | Outpatient (CLI) | payer BC, MEDICARE, SELFPAY ==
[2022-11-28 08:24] LABS: AST(SGOT) 18 U/L (15-37); Alanine Aminotransfer ALT/SGPT 22 U/L (16-61); Albumin, Serum 3.4 g/dL (3.2-5.0); Alkaline Phosphatase 81 U/L (45-117); Bilirubin, Direct 0.19 mg/dL (0.00-0.30); Cholesterol 119 mg/dL (200); Globulin 3.5 g/dL (2.2-4.2); High Density Lipoprotein 43 mg/dL; Protein, Total 6.9 g/dL (6.4-8.2); Triglycerides 132 mg/dL; Very Low Density Lipoprotein 26 mg/dL (5-40)
== END | disposition home or self-care (01) ==
LOC: LAB 07:24
PROVIDERS: PCP Family Medicine; Referring Provider Physician Assistant Medical; Visit Provider Physician Assistant Medical
DX: E78.00 Pure hypercholesterolemia, unspecified (principal)
CPT/HCPCS: 36415; 80061; 80076

== ENCOUNTER 2023-02-06 11:58 | Inpatient (IN) | payer BC, MEDICARE, SELFPAY ==
[2023-02-06 11:59] VITALS: BP 142/90; PULSE 85; RESP 16; TEMP 36.2; O2SAT 98
--- NOTE | 2023-02-06 12:15 | EKG12_ITS ---
Test Reason : WEAKNESS Blood Pressure : / mmHG Vent. Rate : 075 BPM Atrial Rate : 072 BPM P-R Int : 234 ms QRS Dur : 166 ms QT Int : 468 ms P-R-T Axes : 122 034 -14 degrees QTc Int : 522 ms Normal sinus rhythm , PVC's Right bundle branch block Inferior infarct Abnormal ECG Confirmed by EREN GROSS, AILYN ([id number]), editorial intern MASSIEL MEZA ([id number]) on 02/07/2023 10:47:59 AM Referred By: Confirmed By:AILYN JASON MD
--- NOTE | 2023-02-06 12:15 | CT_ITS ---
INDICATION: facial droop EXAMINATION: CT BRAIN - CT Head or Brain W/O Contrast Injection TECHNIQUE: Multiple axial images were obtained of the head without intravenous contrast. A radiation dose optimization technique was used for this scan. IV Contrast dosage and agent: None. RADIATION DOSAGE (If Supplied By Facility): CTDIvol = ( 44.99 ) mGy, DLP = ( 796.11 ) mGycm COMPARISON: Prior study dated: 05/23/2018. FINDINGS: BRAIN PARENCHYMA: No intra- or extra-axial hemorrhage. No evidence of acute infarct. No intracranial mass or mass effect. There is preservation of the hernández/white matter interface. Chronic periventricular deep white matter changes likely due to microvascular disease. Posterior fossa structures are unremarkable. Atherosclerotic calcifications of the cavernous internal carotid and vertebral arteries. CSF SPACES: Appropriate for age. No hydrocephalus. Basal cisterns are patent. CALVARIUM, SKULL BASE, PARANASAL SINUSES AND MASTOID AIR CELLS: Clear. No discrete lytic or blastic abnormalities. ORBITS: No acute changes. ASPECTS Score for Acute Strokes: 10 CT/Brain/Head without Contrast IMPRESSION: No acute intracranial process. Electronically Signed: Sam Rocha MD at 13:55 EST ,
--- NOTE | 2023-02-06 12:15 | RAD_ITS ---
INDICATION: cough EXAMINATION/TECHNIQUE: X-RAY - XR Chest 1 View COMPARISON: Prior study dated: 11/18/2019 FINDINGS: LINES/DEVICES: None. LUNGS: No consolidation, edema or effusion. No pneumothorax. MEDIASTINUM AND CARDIOVASCULAR STRUCTURES: Previous mediastinotomy. Borderline cardiac silhouette. BONES AND SOFT TISSUES: Unchanged. RAD/Chest 1 View (Portable) IMPRESSION: No radiographic evidence of acute cardiopulmonary disease. Electronically Signed: Sam Rocha MD at 13:07 EST ,
--- NOTE | 2023-02-06 12:17 | EX.ED.DYSGE1 ---
HPI <MEKHI Mooney - Last Filed: 02/06/23 14:20> History of Present Illness Chief Complaint: General Illness Narrative Narrative: Patient is an 87-year-old male with history of cardiomyopathy, CHF, hypertension, hyperlipidemia who presents to the emergency department for 3 to 4 days of generalized weakness. Patient states has had nausea, vomiting, diarrhea over the last 3 to 4 days. He states has been getting these intermittent dizzy spells. He denies any chest pain or shortness of breath. Patient is here with her daughter. Patient denies any falls. Patient denies any fever or chills. Denies any blood in his stool or vomit. [facility] <MEKHI Mooney - Last Filed: 02/06/23 14:20> [facility] Medical History (Updated 02/06/23 @ 14:20 by MEKHI Mooney) Antimitochondrial antibody positive Atherosclerosis of coronary artery of [place] heart without angina pectoris BPH (benign prostatic hyperplasia) Cardiomyopathy, ischemic Carotid artery stenosis Colon polyp Essential hypertension Gastritis and duodenitis History of left heart catheterization (LHC) (~12/25/19) Hyperlipidemia Hypothyroidism Impaired fasting blood sugar Nonrheumatic mitral (valve) insufficiency Nonrheumatic mitral valve prolapse Old inferior wall myocardial infarction Paroxysmal atrial fibrillation PVD (peripheral vascular disease) Secondary pulmonary arterial hypertension Type 2 diabetes mellitus without complications Umbilical hernia Home Medications wnjvdhmj-fco-huzpn acid 0.4 mg-lycopene 300 mcg-lutein 250 mcg tablet 1 ea PO DAILY 09/04/13 [History Last Taken Unknown] aspirin 81 mg chewable tablet 81 mg PO DAILY@0800 08/30/14 [History Last Taken 12/25/19] ursodiol 500 mg tablet 500 mg PO BID 08/07/18 [History Last Taken 12/25/19] levothyroxine 25 mcg tablet 25 mcg PO DAILY 12/29/18 [History Last Taken Unknown] potassium gluconate 600 mg (99 mg) tablet 600 mg PO DAILY 12/07/19 [History Last Taken Unknown] cholecalciferol (vitamin D3) 125 mcg (5,000 unit) capsule 125 mcg PO DAILY 09/09/20 [History Last Taken Unknown] atorvastatin 80 mg tablet 80 mg PO QHS #90 tabs 11/21/20 [Rx Last Taken Unknown] pantoprazole 20 mg tablet,delayed release 20 mg PO DAILY 03/31/21 [History Last Taken Unknown] Handicap Placard #1 ea 10/05/21 [Rx Last Taken Unknown] losartan 50 mg-hydrochlorothiazide 12.5 mg tablet See Rx Instructions .Route .COMPLEX #90 tabs 02/19/22 [Rx Last Taken Unknown] isosorbide mononitrate 60 mg tablet,extended release 24 hr 60 mg PO QAM #90 tabs 03/30/22 [Rx Last Taken Unknown] metoprolol tartrate 50 mg tablet 50 mg PO BID #180 tabs 07/19/22 [Rx Last Taken Unknown] amlodipine 5 mg tablet 5 mg PO QDAY #90 tabs 11/05/22 [Rx Last Taken Unknown] Allergy/AdvReac Type Severity Reaction Status Date / Time No Known Allergies Allergy Verified 02/06/23 12:01 Family History Brother Colon cancer Myocardial infarction Hypertension Hyperlipidemia Heavy alcohol use Sister Hypertension Hyperlipidemia Mother Diabetes Unknown Heart disease Kidney disease Surgical History H/O cataract extraction H/O coronary artery bypass surgery History of colectomy History of herniorrhaphy History of partial colectomy Hx of cholecystectomy S/P TURP Social History Smoking Status: Former smoker how long ago did patient quit smokin years ago alcohol intake: never caffeine: Yes Type: coffee Number of servings: 1 ROS <MEKHI Mooney - Last Filed: 02/06/23 14:20> ROS ED ROS Narrative Constitutional: Negative for fever, chills, weight loss. Positive for weakness Eyes: Negative for vision loss, vision change, double vision ENT: Negative for any sore throat, ear pain, congestion Cardiovascular: Negative for any chest pain, tightness, palpitations Respiratory: Negative for any cough, sputum production, hemoptysis, dyspnea, dyspnea on exertion, orthopnea Gastrointestinal: Negative for any abdominal pain, constipation, blood in stool, blood in vomit. Positive for nausea, vomiting, diarrhea : Negative for any urinary frequency, dysuria, retention, blood in urine Muscle skeletal: Negative for any arthralgias, neck pain, back pain. Positive generalized myalgias Neurological: Negative for any headache, syncope, numbness or tingling. Positive for dizziness Skin: Negative for any rashes, lumps, itching, abrasions, lacerations Psychiatric: Negative for any depression, anxiety, stress, suicidal ideation, homicidal ideation Hematologic: Negative for any easy bruising, excessive bruising, easy bleeding Allergies: Negative for any eczema, hives, rash EXAM <EMKHI Mooney - Last Filed: 02/06/23 14:20> Physical Exam Narrative Exam Narrative: Vital signs reviewed. Patient is alert and orient x4, acting appropriate. Vital signs are stable. Patient does have some shaking to his body however he states this is not normal however the daughter states this does happen sometimes. HEET: Head normocephalic atraumatic, TMs clear bilaterally. Posterior pharynx is clear, dry mucous membranes. Nares clear bilaterally. Neck: Supple with no lymphadenopathy or tenderness. No signs of meningismus. Cardiac: Regular rate and rhythm no murmurs gallops or rubs, equal peripheral pulses bilaterally. Respiratory: Lungs clear to auscultation bilaterally. No chest tenderness. Abdomen: Soft, nontender, nondistended. No abdominal bruit or pulsatile masses. No hepatosplenomegaly Extremities: No peripheral edema, no signs of gross trauma or deformity. Active full range of motion of all extremities. Neuro: Cranial nerves II through XII intact, no focal neurological deficits. When the patient is speaking, I do notice that the left side of his mouth is drooping, I spoke with the patient, the patient's daughter, she states that does happen sometimes however it is more than usual. However they are unsure when this started. Skin: Clean dry and intact with no rash, purpura, petechiae, vesicles or pustules. Backs/flank: No CVA tenderness, no midline spinal tenderness, no deformity. Psych: Normal mood and affect. No SI, HI or acute psychosis. Const Vital Signs: 02/06/23 11:59 02/06/23 11:59 Temperature 97.2 F L Temperature Source Temporal Pulse Rate 85 Respiratory Rate 16 Respiratory Effort Normal Non-Labored Respiratory Pattern Normal Blood Pressure 142/90 H Blood Pressure Mean 107 Pulse Ox 98 Oxygen Delivery Method Room Air Positive well nourished and well developed General Appearance ED: well developed <Dr. Maciel Garcia MD - Last Filed: 02/06/23 14:28> Physical Exam Const Vital Signs: 02/06/23 11:59 02/06/23 11:59 Temperature 97.2 F L Temperature Source Temporal Pulse Rate 85 Respiratory Rate 16 Respiratory Effort Normal Non-Labored Respiratory Pattern Normal Blood Pressure 142/90 H Blood Pressure Mean 107 Pulse Ox 98 Oxygen Delivery Method Room Air MDM <David WorrellMEKHI de oliveira - Last Filed: 02/06/23 14:20> [facility] Lab Data Labs: Laboratory Results - last 24 hr 02/06/23 12:49 WBC 11.6 H RBC 5.47 Hgb 16.6 H Hct 51.2 MCV 93.6 MCH 30.3 MCHC 32.4 RDW Std Deviation 47.1 H RDW Coeff of Chloe 13.6 Plt Count 225 MPV 9.9 Immature Gran % (Auto) 0.300 Neut % (Auto) 57.7 Lymph % (Auto) 32.0 Cocke % (Auto) 9.8 Eos % (Auto) 0.1 Baso % (Auto) 0.1 Absolute Neuts (auto) 6.7 Absolute Lymphs (auto) 3.73 Nucleated RBC % 0 Sodium 139 Potassium 3.8 Chloride 111 H Carbon Dioxide 21.0 Anion Gap 7 BUN 72 H Creatinine 2.99 H Est GFR (MDRD) Af Amer 26 L Est GFR (MDRD) Non-Af 21 L BUN/Creatinine Ratio 24.1 H Glucose 143 H Calcium 9.9 Total Bilirubin 0.70 AST 21 ALT 33 Alkaline Phosphatase 108 Total Protein 7.8 Albumin 3.7 Globulin 4.1 Albumin/Globulin Ratio 0.9 Lipase 25 Radiography Diagnostic Testing: Clinical Impression(s) from Imaging Studies Brain CT 02/06/23 12:15 IMPRESSION: No acute intracranial process. Electronically Signed: Sam Rocha MD at 13:55 EST , Chest X-Ray 02/06/23 12:15 IMPRESSION: No radiographic evidence of acute cardiopulmonary disease. Electronically Signed: Sam Rocha MD at 13:07 EST , EKG EKG shows right bundle branch block rate of 75: Attestation: I personally reviewed and interpreted this EKG as follows: Comments: EKG shows a right bundle branch block, rate of 75 bpm, FL interval 234 ms, QRS duration 166 ms, no acute ST elevation, no acute infarct noted. Treatment and Re-Evaluation :: Patient is in no obvious respiratory distress, patient's vital signs are stable. Patient presents to the emergency department for weakness, nausea, vomiting, diarrhea, generalized dizziness. Patient differential diagnosis includes viral infection such as influenza or COVID, UTI, pneumonia. Patient received a CT scan of the brain secondary to the dizziness. Basic laboratory values will be completed concerning for any anemia, leukocytosis, electrolyte abnormality. Patient denies any chest pain or shortness of breath. Patient received IV fluids, Zofran. Patient responded well to fluids. Patient still having difficulty getting a urine sample. Patient CT scan of the brain was unremarkable, patient's chest x-ray showed no acute process. Patient's laboratory values show slight leukocytosis white blood count 11.6, patient is hemoconcentrated with a hemoglobin of 16.6, patient's chemistries show acute kidney injury with a BUN of 72, creatinine 2.99, patient creatinine on May 18, 2022 was 1.41, this is a significant increase. Glucose 143. Patient's COVID-19, influenza was negative. Patient will need to be admitted to the hospital secondary to acute kidney injury, dehydration. <Dr. Maciel Garcia MD - Last Filed: 02/06/23 14:28> [facility] Narrative Medical decision making narrative: I have personally performed a face to face assessment of the patient and have reviewed the GERTRUDE Note. I performed a substantive portion of the visit including all aspects of the following. My torres findings include: History is 87-year-old male with nausea, vomiting and diarrhea since Saturday. Denies any recent hospitalization. No recent antibiotics. Denies any hematemesis or melena. Feels dehydrated and lightheaded. No significant abdominal pain. Exam is [well-appearing 87-year-old male. Vital signs are stable and afebrile. Initial blood pressure 142/90. He does not look septic or toxic. HEENT exam mildly dry mucous membranes. Atraumatic. Pupils round reactive light. Lungs clear to auscultation bilaterally. Heart regular rhythm rate about 85 no murmur. Chest wall and ribs nontender. Abdomen soft nontender. No peritoneal signs. No distention. Moving all 4 extremities. Nontender. No edema. Neurologically is awake and alert.] Medical Decision Making [87-year-old gentleman with nausea, vomiting diarrhea for 3 days. Suspect dehydration. May be a viral syndrome. He has been on no recent antibiotics. No recent hospitalization. No history of C. difficile. Screening labs. IV fluids. His kidney function returned with acute kidney injury with a creatinine of 2.99. He will be admitted to the hospital. We have already spoken to hospice.] Other additions or changes: [None] History & Record Review Discussion w/independent historian: Patient and Family Additional record(s) reviewed:: Prior inpatient record, Prior outpatient record, Prior ED visit and Prior labs Lab Data Attestation: I reviewed the patient's lab results. Lab results narrative: BC shows a white count 9.6. H&H is 16 and 51. Platelets 225. Electrolytes show a gap of 7. BUN is 72 and creatinine 2.99 significantly different from his prior. Liver markable. Lipase is normal at 25. Labs: Laboratory Results - last 24 hr 02/06/23 12:49 WBC 11.6 H RBC 5.47 Hgb 16.6 H Hct 51.2 MCV 93.6 MCH 30.3 MCHC 32.4 RDW Std Deviation 47.1 H RDW Coeff of Chloe 13.6 Plt Count 225 MPV 9.9 Immature Gran % (Auto) 0.300 Neut % (Auto) 57.7 Lymph % (Auto) 32.0 Cocke % (Auto) 9.8 Eos % (Auto) 0.1 Baso % (Auto) 0.1 Absolute Neuts (auto) 6.7 Absolute Lymphs (auto) 3.73 Nucleated RBC % 0 Sodium 139 Potassium 3.8 Chloride 111 H Carbon Dioxide 21.0 Anion Gap 7 BUN 72 H Creatinine 2.99 H Est GFR (MDRD) Af Amer 26 L Est GFR (MDRD) Non-Af 21 L BUN/Creatinine Ratio 24.1 H Glucose 143 H Calcium 9.9 Total Bilirubin 0.70 AST 21 ALT 33 Alkaline Phosphatase 108 Total Protein 7.8 Albumin 3.7 Globulin 4.1 Albumin/Globulin Ratio 0.9 Lipase 25 Radiography Chest X-Ray - ED: 1 View, Read by ED Physician, Read by Radiologist, Heart, Lungs, Mediastinum, Bony Structures, No Acute Disease and Chronic Changes Diagnostic Testing: Clinical Impression(s) from Imaging Studies Brain CT 02/06/23 12:15 IMPRESSION: No acute intracranial process. Electronically Signed: Sam Rocha MD at 13:55 EST , Chest X-Ray 02/06/23 12:15 IMPRESSION: No radiographic evidence of acute cardiopulmonary disease. Electronically Signed: Sam Rocha MD at 13:07 EST , Chest x-ray, portable, single view, interpreted both by myself and the radiologist shows no acute abnormality. Normal cardiac silhouette. Normal mediastinum. Discharge Plan Dx/Rx/DC Orders Clinical Impression: Acute kidney injury, Acute dehydration, Dizziness, Diarrhea Disposition Disposition: [facility]
[2023-02-06] MEDS: Ondansetron 4 MG/2 ML Vial IV (12:46)
[2023-02-06] MEDS: 0.9% Normal Saline (1000mL) 1,000 ML 1000 ML IV (12:46)
[2023-02-06 12:57] LABS: Absolute Lymphocyte Count 3.73 X10^3/uL (0.83-4.51); Absolute Neutrophil Count 6.7 X10^3/uL (2.0-7.7); Basophil# 0.01 X10^3/uL; Basophil% 0.1 % (0-1); Eosinophil# 0.01 X10^3/uL; Eosinophils% 0.1 % (0-5); Hematocrit 51.2 % (40-54); Hemoglobin 16.6 g/dL (13.0-16.5); Lymphocyte # 3.73 X10^3/ul (0.83-4.51); Mean Corp Hgb Conc 32.4 g/dL (32-36); Mean Corpuscular Hgb 30.3 pg (27.0-32.0); Mean Corpuscular Volume 93.6 fL (80-94); Mean Platelet Vol. 9.9 fl (6.2-12.0); Monocyte# 1.14 X10^3/uL; Monocyte% 9.8 % (0-10); NRBC Flagged by Analyzer 0 % (0-5); Neutrophil # 6.71 X10^3/uL (2.7-7.7); Neutrophil % 57.7 % (47-70); Platelet Count 225 K/mm3 (150-450); RBC Distribution Width CV 13.6 % (11.6-14.6); RBC Distribution Width SD 47.1 fl (35.1-43.9); Red Blood Count 5.47 M/mm3 (4.6-6.2); White Blood Count 11.6 K/mm3 (4.4-11.0)
[2023-02-06 13:11] LABS: ALB/GLOB Ratio 0.9 RATIO (0.9-2.4); AST(SGOT) 21 U/L (15-37); Alanine Aminotransfer ALT/SGPT 33 U/L (16-61); Albumin, Serum 3.7 g/dL (3.2-5.0); Alkaline Phosphatase 108 U/L (45-117); Anion Gap 7 (5-15); BUN 72 mg/dL (7-18); BUN/Creat Ratio 24.1 RATIO (10-20); Calcium,Total 9.9 mg/dL (8.5-10.1); Chloride 111 mmol/L (98-107); Creatinine, Serum 2.99 mg/dL (0.70-1.30); EST Glomerular Filtration Rate 21 mL/min (>60); Est Glom Filt Rate - Afr Amer 26 mL/min (>60); Globulin 4.1 g/dL (2.2-4.2); Glucose 143 mg/dL (74-106); Lipase 25 U/L (13-75); Potassium 3.8 mmol/L (3.5-5.1); Protein, Total 7.8 g/dL (6.4-8.2); Sodium Level 139 mmol/L (136-145)
[2023-02-06 14:05] LABS: Mucous, Urine 0 SEEN /hpf (<or=2+); White Blood Cells 0 SEEN /hpf (0-5)
--- NOTE | 2023-02-06 14:12 | HP.PCM.HOS_ITS ---
HPI - General General Date of Admission: 02/06/23 Date of Service: 02/06/23 Chief Complaint: Generalized weakness, diarrhea, dehydration HPI Narrative KT STILES, is a 87 M who presented to [facility] ED on 02/06/2023 for worsening generalized weakness, nausea/vomiting/diarrhea and dehydration. Patient seen at bedside the ED, present. Patient comfortably bed, conversing normally, no acute distress. Patient states that his energy level feels much improved after receiving IV fluids in the ED. Patient's states that he looks much improved after IV fluids. Patient lives at home with his , has been very functional around the home until the last few days. Over that timeframe he has had fairly severe diarrhea, up to 10-15 bowel movements per day. Last bowel movement was this morning prior to coming to the ED. Has also had nausea with several doses of vomiting and has had minimal p.o. intake. Has had worsening weakness to the point where it has been difficult for him to get out of bed and walk around. Also reports significant dizziness/lightheadedness when going from sitting to standing and with moving to certain positions while laying in bed. Patient has been taking all home medications as prescribed. Has not checked his blood pressure at home over the past few days. Patient typically has good urine output but noticeably has had minimal urine output over the past few days. Does have history of BPH, had a TURP procedure done for this a few years ago. Reports fairly frequent nocturia at baseline, which has been stable for him. He otherwise denies any fevers or chills or chest pain. Patient does report intermittent shortness of breath but has difficulty characterizing the shortness of breath. He currently denies any shortness of breath or difficulty breathing. He denies any significant abdominal pain or discomfort. No other acute concerns at this time. [facility] Medical History (Updated 02/06/23 @ 15:21 by Joy Brewer) Antimitochondrial antibody positive Atherosclerosis of coronary artery of [place] heart without angina pectoris Atrial fibrillation BPH (benign prostatic hyperplasia) Cardiomyopathy, ischemic Carotid artery stenosis Cirrhosis Colon polyp Congestive heart failure (CHF) Essential hypertension Former smoker Gastritis and duodenitis GERD (gastroesophageal reflux disease) History of left heart catheterization (LHC) (~12/25/19) Hyperlipidemia Hypertension Hypothyroidism Impaired fasting blood sugar Kidney stones Myocardial infarct Nonrheumatic mitral (valve) insufficiency Nonrheumatic mitral valve prolapse Old inferior wall myocardial infarction Paroxysmal atrial fibrillation PVD (peripheral vascular disease) Secondary pulmonary arterial hypertension Type 2 diabetes mellitus without complications Umbilical hernia Home Medications [id number]-[id number] acid 0.4 mg-lycopene 300 mcg-lutein 250 mcg tablet 1 ea PO DAILY supplement 09/04/13 [History Last Taken Unknown] aspirin 81 mg chewable tablet 81 mg PO DAILY@0800 prevention 08/30/14 [History Last Taken 12/25/19] ursodiol 500 mg tablet 500 mg PO BID bladder 08/07/18 [History Last Taken 02/05/23] potassium gluconate 600 mg (99 mg) tablet 600 mg PO DAILY supplement 12/07/19 [History Last Taken 02/05/23] cholecalciferol (vitamin D3) 125 mcg (5,000 unit) capsule 125 mcg PO DAILY supp lelment 09/09/20 [History Last Taken Unknown] atorvastatin 80 mg tablet 80 mg PO QHS cholestrol #90 tabs 11/21/20 [Rx Last Taken Unknown] pantoprazole 20 mg tablet,delayed release 20 mg PO DAILY decrease acid 03/31/21 [History Last Taken 02/06/23] Handicap Placard #1 ea 10/05/21 [Rx Last Taken Unknown] losartan 50 mg-hydrochlorothiazide 12.5 mg tablet See Rx Instructions .Route .COMPLEX blood pressure #90 tabs 02/19/22 [Rx Last Taken 02/06/23] isosorbide mononitrate 60 mg tablet,extended release 24 hr 60 mg PO QAM heart #90 tabs 03/30/22 [Rx Last Taken 02/05/23] metoprolol tartrate 50 mg tablet 50 mg PO BID heart #180 tabs 07/19/22 [Rx Last Taken 02/05/23] amlodipine 5 mg tablet 5 mg PO DAILY blood pressure 02/06/23 [History Last Taken 02/05/23] Allergy/AdvReac Type Severity Reaction Status Date / Time No Known Allergies Allergy Verified 02/06/23 12:01 Family History Brother Colon cancer Myocardial infarction Hypertension Hyperlipidemia Heavy alcohol use Sister Hypertension Hyperlipidemia Mother Diabetes Unknown Heart disease Kidney disease Surgical History (Updated 02/06/23 @ 15:21 by Joy Brewer) H/O cataract extraction H/O coronary artery bypass surgery History of colectomy History of coronary artery stent placement History of herniorrhaphy History of partial colectomy Hx of cholecystectomy S/P TURP Social History Smoking Status: Former smoker how long ago did patient quit smokin years ago alcohol intake: never caffeine: Yes Type: coffee Number of servings: 1 ROS Constitutional Constitutional: Reports fatigue, malaise and weakness; Denies chills or fever(s) Eyes Eyes: Denies change in vision Cardiovascular Cardiovascular: Reports lightheadedness; Denies chest pain, dyspnea on exertion, edema, orthopnea or rapid heart rate Respiratory/Chest Respiratory/Chest: Reports shortness of breath at rest; Denies cough or wheezing Gastrointestinal Gastrointestinal: Reports diarrhea, nausea and vomiting; Denies abdominal pain or constipation Genitourinary Genitourinary: Denies dysuria Musculoskeletal Musculoskeletal: Denies arthralgias or back pain Neurologic Neurologic: Reports dizziness; Denies confusion, focal weakness, headache(s), numbness or paresthesias Vital Signs Vital Signs Vital Signs: 02/06/23 11:59 02/06/23 11:59 Temperature 97.2 F L Temperature Source Temporal Pulse Rate 85 Respiratory Rate 16 Respiratory Effort Normal Non-Labored Respiratory Pattern Normal Blood Pressure 142/90 H Blood Pressure Mean 107 Pulse Ox 98 Oxygen Delivery Method Room Air Physical Exam Const alert, oriented x3, no apparent distress and average body habitus Constitutional Narrative: Pleasant elderly male, sitting comfortably in bed, conversing normally, no acute distress. General Appearance: cooperative and comfortable HEENT normocephalic, head/scalp atraumatic, hearing grossly normal bilaterally, nasal mucous membranes and turbinates normal and moist oral mucous membranes Eyes PERRL, EOMs intact bilaterally and conjunctivae normal Neck full ROM, no lymphadenopathy and supple Lymph Lymphatic: no lymphadenopathy noted Chest inspection of chest normal Resp normal respiratory effort, normal air movement, no use of accessory muscles and clear to auscultation bilaterally Cardio regular rate, regular rhythm, no murmurs and peripheral pulses 2+ throughout GI normal to inspection, nondistended, normoactive bowel sounds, soft to palpation, non-tender and non-distended Back/Spine normal ROM Extremity normal to inspection, full ROM and no pedal edema Skin no rashes or lesions noted Neuro No moves all extremities and No no focal motor deficits Speech: speech normal Psych mental status grossly normal Results Lab / Micro Data 02/06/23 12:49 02/06/23 12:49 Labs: Laboratory Results - last 24 hr 02/06/23 12:49: WBC 11.6 H, RBC 5.47, Hgb 16.6 H, Hct 51.2, MCV 93.6, MCH 30.3, MCHC 32.4, RDW Std Deviation 47.1 H, RDW Coeff of Chloe 13.6, Plt Count 225, MPV 9.9, Immature Gran % (Auto) 0.300, Neut % (Auto) 57.7, Lymph % (Auto) 32.0, [place] % (Auto) 9.8, Eos % (Auto) 0.1, Baso % (Auto) 0.1, Absolute Neuts (auto) 6.7, Absolute Lymphs (auto) 3.73, Nucleated RBC % 0, Sodium 139, Potassium 3.8, Chloride 111 H, Carbon Dioxide 21.0, Anion Gap 7, BUN 72 H, Creatinine 2.99 H, Est GFR (MDRD) Af Amer 26 L, Est GFR (MDRD) Non-Af 21 L, BUN/Creatinine Ratio 24.1 H, Glucose 143 H, Calcium 9.9, Total Bilirubin 0.70, AST 21, ALT 33, Alkaline Phosphatase 108, Total Protein 7.8, Albumin 3.7, Globulin 4.1, Albumin/Globulin Ratio 0.9, Lipase 25 Micro: Microbiology 02/06/23 12:49 Nasal Secretion SARS-CoV-2 & FLU Antigen (Rapid) - Final Imagaing Radiology Impression Brain CT 02/06/23 12:15 IMPRESSION: No acute intracranial process. Electronically Signed: Sam Rocha MD at 13:55 EST , Chest X-Ray 02/06/23 12:15 IMPRESSION: No radiographic evidence of acute cardiopulmonary disease. Electronically Signed: Sam Rocha MD at 13:07 EST , Assessment & Plan Assessment/Plan (1) Acute kidney injury: (2) Diarrhea: (3) Acute dehydration: PLAN: Plan Patient is an 87-year-old male who presented to [facility] ED on 02/06/2023 with worsening weakness and GI symptoms. 1. Generalized weakness, nausea/vomiting/diarrhea, dehydration, suspected orthostatic hypotension Most likely cause seems to be a viral gastroenteritis, leading to fairly significant diarrhea with nausea and vomiting, poor p.o. intake and dehydration. Reported intermittent shortness of breath over this timeframe, but no cough or sputum production, no fevers or chills. Chest x-ray nonacute. UA noninfectious. Considered an atypical presentation of ACS given history of ischemic cardiomyopathy with CAD as noted below, however EKG in ED showed no ischemic changes, initial troponin negative. ? Admit under inpatient status to PCU. Stool PCR ordered. S/p 1 L of IV fluids in the ED with improvement and blood pressure and patient's general weakness; e ncouraged p.o. intake, could consider supplementing with further IV fluids as needed. Follow-up daily labs. Holding home antihypertensive medications as noted below. PT/OT/case management consulted; patient lives at home with his , reports no issues taking care of himself at home until this recent illness. 2. 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 Baseline creatinine 1.4-1.8. Most likely prerenal in setting of volume depletion as noted above. Home losartan and hydrochlorothiazide also contributing to worsening TRE. Patient reports good urine output until last few days, minimal urine output since then. Has history of BPH with frequent nocturia, states this has been stable for last few years. ? Follow-up a.m. BMP. Urine sodium and creatinine ordered to calculate FeNa. Renal/bladder ultrasound ordered to rule out postobstructive etiology. Monitor urine output. 3. Ischemic cardiomyopathy, history of CAD s/p CABG x 5 (2001), history of inferior LA, nonrheumatic mitral valve insufficiency, secondary pulmonary hypertension Last echo from 11/2019 showed an EF of 40%, hypokinesis in several areas around the inferior/septal region of the heart, mild diastolic function. Follows cardiology, last office visit was in 05/2022. No significant functional status changes noted at that time, was continued on home home medications for aggr essive medical management. Was noted on that office visit note that plan was to possibly repeat echo at his next office visit. ? Will repeat echo at this time. Have low concern for cardiac etiology causing acute symptoms as noted above, but given known heart dysfunction seems prudent to reassess his cardiac function at this time. Continue home aspirin, atorvastatin. Continue home Lopressor, otherwise hold home antihypertensives as noted below given TRE and suspected orthostatic hypotension, restart as able. Chronic medical conditions: ? Hypertension, hyperlipidemia: Holding home amlodipine, losartan, isosorbide mononitrate for now, restart as able. Okay to continue home Lopressor. Con tinue home atorvastatin. ? History of paroxysmal atrial fibrillation: Noted on cardiology office note from 05/2022. Not on anticoagulation, seems that he had a few minor episodes that have not recurred. EKG showed normal sinus rhythm on admit. Monitor. Continue home Lopressor. ? GERD: Continue home PPI. ? Hypothyroidism: Continue home Synthroid. ? 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 ? History of partial colectomy ? History of cholecystectomy DVT prophylaxis: Heparin subcu CODE STATUS: Full code, verified Expected disposition: Home, 2 to 3 days Total clinical time spent by myself addressing the patient's medical issues, reviewing all the data, and collaborating with patient's care team: 55 minutes. Charges/Coding Visit Charges Inpatient E&M: 72734 Init Hosp L2
[2023-02-06 14:18] LABS: Color, Urine Yellow (Yellow); Glucose, Dipstick Normal (Normal); Ketone-Dipstick 5 mg/dl (Negative); Leukocyte Esterase-Dipstick Negative /ul (Negative); Nitrite-Dipstick Negative (Negative); Occult Blood-Urine 10 /ul (Negative); Protein-Dipstick 30 mg/dl (Negative); Specific Gravity, Urine 1.025 (1.002-1.030); Urine Bilirubin Dipstick Negative (Negative); Urine Clarity Clear (Clear); Urine Urobilinogen Normal (Normal)
--- NOTE | 2023-02-06 14:22 | NURSING ---
PCU MOSTELLER ACUTE KIDNEY INJURY, DEHYDRATION, DIARRHEA, DIZZINESS
[2023-02-06 14:28] LABS: Bacteria 1+ /hpf (None Seen); Coarse Granular Cast 0-5 SEEN /lpf (0-5 /lpf); Hyaline Cast 5-10 SEEN /lpf (0-5); Red Blood Cells-Urine 0-5 SEEN /hpf (0-5); Squamous Epithelial Cells - UA 0-5 SEEN /hpf (0-5)
--- NOTE | 2023-02-06 14:38 | US_ITS ---
INDICATION: TRE, r/o postobstructive etiology EXAMINATION: Ultrasound US Kidney(s) complete (eg, kidneys and bladder) TECHNIQUE: Gardiner scale and color doppler images were obtained of the kidneys. COMPARISON: FINDINGS: RIGHT KIDNEY: 8.6 x 4.2 x 4.5 cm. The cortex is 10 mm. There is no hydronephrosis. No shadowing calculus, focal lesion or perinephric collection is demonstrated. LEFT KIDNEY: 9.3 x 3.6 x 4.1 cm. The cortex is 11 mm. There is no hydronephrosis. There is a mid renal 13 mm cyst. URINARY BLADDER: No acute abnormality. US/Kidney and Bladder IMPRESSION: Left renal cyst. Electronically Signed: Jb Rosales DO at 20:07 EST ,
--- NOTE | 2023-02-06 15:17 | ECHOD_ITS ---
Reason For Study: CHF Procedure This was a 2D Doppler, Color Flow transthoracic echocardiogram. Exam performed portable in patient room. Left Ventricle Normal LV size. Segmental dysfunction with preserved ejection fraction (see wall motion). Stage 1 diastolic dysfunction. The left ventricular ejection fraction is 50 %. Infero-Basal: Akinetic. Mid- Inferior: Hypokinetic. The rest of the wall segments are normal. Inferior [place] : Hypokinetic. Right Ventricle Normal RV size. Normal systolic function. Atria Normal left atrium. Normal right atrium. Mitral Valve Normal mitral valve. Tricuspid Valve Normal tricuspid valve. Mild tricuspid valve insufficiency. Pulmonary artery systolic pressure is 36 mmHg. Aortic Valve Trisinus/trileaflet aortic valve. Mild focal aortic valve thickening. Pulmonic Valve Normal pulmonic valve. Mild (1+) pulmonic valve insufficiency. Great Vessels Normal aortic root. The pulmonary artery is normal size. Normal inferior vena cava. Pericardium/Pleural No pericardial effusion. MMode/2D Measurements & Calculations LVIDd: 4.5 cm IVSd: 1.8 cm LAV(MOD-bp): 54.1 ml LVIDs: 3.7 cm LVPWd: 0.86 cm LAV(MOD-bp) Indexed: 29.1 ml/m2 RVDd: 3.4 cm FS: 16.9 % LAV(MOD-sp2): 44.2 ml LAV(MOD-sp4): 55.2 ml SV(MOD-sp4): 29.9 ml LVAd ap4: 21.8 cm2 LVAd ap2: 27.6 cm2 LVLd ap4: 6.2 cm LVLd ap2: 7.7 cm EDV(MOD-sp4): 63.2 ml EDV(MOD-sp2): 88.6 ml EDV(sp4-el): 64.5 ml EDV(sp2-el): 83.9 ml LVAs ap4: 14.2 cm2 LVAs ap2: 20.7 cm2 LVLs ap4: 5.5 cm LVLs ap2: 7.0 cm ESV(MOD-sp4): 33.4 ml ESV(MOD-sp2): 55.8 ml ESV(sp4-el): 31.1 ml ESV(sp2-el): 51.8 ml EF(MOD-sp4): 47.2 % EF(MOD-sp2): 37.0 % EF(sp4-el): 51.8 % SV(MOD-sp2): 32.8 ml SV(sp4-el): 33.5 ml LA A4 area: 19.9 cm2 LA dimension(2D): 4.2 cm TAPSE: 1.0 cm RA A4 area: 17.2 cm2 Time Measurements MV dec time: 0.28 sec Doppler Measurements & Calculations MV E max robinson: 38.8 cm/sec Lat Peak E' Robinson: 3.8 cm/sec Med Peak E' Robinson: 4.3 cm/sec MV A max robinson: 70.4 cm/sec E/E' lat: 10.2 E/E' med: 9.1 MV E/A: 0.55 MV V2 max: 91.8 cm/sec MV P1/2t max robinson: 52.5 cm/sec Ao V2 max: 101.9 cm/sec MV max P.4 mmHg MV P1/2t: 108.3 msec Ao max P.2 mmHg MV V2 mean: 40.2 cm/sec MV dec slope: 142.1 cm/sec2 Ao V2 mean: 68.8 cm/sec MV mean P.79 mmHg Ao mean P.2 mmHg MV V2 VTI: 22.7 cm MVA(P1/2t): 2.0 cm2 Ao V2 VTI: 19.6 cm AV (velocity ratio): 0.69 LV V1 max: 76.3 cm/sec PA V2 max: 101.8 cm/sec PI dec slope: 105.5 cm/sec2 LV V1 max P.3 mmHg PA V2 mean: 70.5 cm/sec LV V1 mean P.2 mmHg LV V1 mean: 50.6 cm/sec LV V1 VTI: 13.5 cm TR max robinson: 284.4 cm/sec TR max P.3 mmHg ECHO/Echo Complete Interpretation Summary Normal LV size. Segmental dysfunction with preserved ejection fraction (see wall motion). Stage 1 diastolic dysfunction. The left ventricular ejection fraction is 50 %. Pulmonary artery systolic pressure is 36 mmHg. Ordering Physician: Kevin Delacruz Referring Physician: Bernice Aquino Performed By: Valeria George, SADIQ, RVT
[2023-02-06 15:18] VITALS: BMI 21.9
[2023-02-06 15:23] VITALS: BP 116/64; PULSE 59; RESP 20; TEMP 36.3; O2SAT 98
[2023-02-06] MEDS: Pantoprazole Sodium 20 MG Tablet PO (15:51)
[2023-02-06 15:57] LABS: Troponin-I HS 27 pg/mL (3.0-78.0)
[2023-02-06 16:16] LABS: Magnesium 2.2 mg/dL (1.6-2.6)
[2023-02-06] MEDS: Calcium Carbonate 500 MG Tablet PO (18:34)
[2023-02-06 18:39] LABS: Urine Sodium 14 mmol/L (Not Establ.)
[2023-02-06] MEDS: Atorvastatin Calcium 80 MG Tablet PO (19:35)
[2023-02-06] MEDS: Ursodiol 250 MG Tablet 500 MG PO (19:35)
[2023-02-06] MEDS: Heparin Injection (Vial) 5,000 UNIT/ML VIAL 5000 UNIT SC (19:35)
[2023-02-06 20:16] VITALS: O2SAT 98
[2023-02-06 21:23] VITALS: BP 98/67; PULSE 67; RESP 16; TEMP 36.4; O2SAT 98
[2023-02-07] VITALS (7 sets, daily range): BP systolic 98–114; BP diastolic 43–63; PULSE 64–78; RESP 16; TEMP 36.1–36.2; O2SAT 97–100
[2023-02-07] MEDS: Levothyroxine 25 MCG TABLET PO (04:56)
[2023-02-07] MEDS: Heparin Injection (Vial) 5,000 UNIT/ML VIAL 5000 UNIT SC ×3 (04:56→19:33)
[2023-02-07 07:34] LABS: Hematocrit 44.1 % (40-54); Hemoglobin 14.4 g/dL (13.0-16.5); Mean Corp Hgb Conc 32.7 g/dL (32-36); Mean Corpuscular Hgb 30.7 pg (27.0-32.0); Mean Platelet Vol. 10.5 fl (6.2-12.0); Platelet Count 183 K/mm3 (150-450); RBC Distribution Width CV 13.7 % (11.6-14.6); RBC Distribution Width SD 47.5 fl (35.1-43.9); Red Blood Count 4.69 M/mm3 (4.6-6.2); White Blood Count 12.1 K/mm3 (4.4-11.0)
[2023-02-07 07:59] LABS: Anion Gap 6 (5-15); BUN 84 mg/dL (7-18); BUN/Creat Ratio 25.8 RATIO (10-20); Calcium,Total 9.1 mg/dL (8.5-10.1); Chloride 111 mmol/L (98-107); Creatinine, Serum 3.25 mg/dL (0.70-1.30); EST Glomerular Filtration Rate 19 mL/min (>60); Est Glom Filt Rate - Afr Amer 23 mL/min (>60); Estimated Creatinine Clearance 15.97 ml/min; Glucose 86 mg/dL (74-106); Magnesium 2.2 mg/dL (1.6-2.6); Potassium 3.9 mmol/L (3.5-5.1); Sodium Level 139 mmol/L (136-145)
[2023-02-07] MEDS: Aspirin 81 MG TAB.CHEW PO (09:53)
[2023-02-07] MEDS: Ursodiol 250 MG Tablet 500 MG PO ×2 (09:53→19:32)
[2023-02-07] MEDS: Metoprolol Tartrate 50 MG Tablet PO ×2 (09:53→19:33)
[2023-02-07] MEDS: Cholecalciferol (Vit D3) 125 MCG CAPSULE (5,000 UNITS) PO (09:53)
[2023-02-07] MEDS: Pantoprazole Sodium 20 MG Tablet PO (09:53)
--- NOTE | 2023-02-07 09:53 | PN.HOSP_ITS ---
Reason for Visit Reason for Visit: Diagnoses Dehydration (02/06/23) Acute kidney failure, unspecified (02/06/23) Diarrhea, unspecified (02/06/23) Subjective Subjective Had 2 episodes of diarrhea, did have a little bit of spinning when he turned in bed a couple times, still feels a little bit weak overall Objective Data Objective Data Vital Signs: Vital Signs Temp Pulse Resp BP Pulse Ox O2 Del Method 97.1 F L 78 16 111/43 L 97 Room Air 02/07/23 09:47 02/07/23 09:47 02/07/23 09:47 02/07/23 09:47 02/07/23 09:47 02/07/23 09:47 Oxygen Delivery Method Room Air Weight: 69.2 kg Body Mass Index (BMI) 21.9 Intake & Output: Intake and Output for Last 24 Hours 02/05/23 02/06/23 02/07/23 23:59 23:59 23:59 Intake Total 1000 / 1120 240 / 240 Balance 1000 / 1120 240 / 240 Lab / Micro Data 02/07/23 07:00 02/07/23 07:00 Labs: Laboratory Results - last 24 hr 02/06/23 12:49: WBC 11.6 H, RBC 5.47, Hgb 16.6 H, Hct 51.2, MCV 93.6, MCH 30.3, MCHC 32.4, RDW Std Deviation 47.1 H, RDW Coeff of Chloe 13.6, Plt Count 225, MPV 9.9, Immature Gran % (Auto) 0.300, Neut % (Auto) 57.7, Lymph % (Auto) 32.0, [place] % (Auto) 9.8, Eos % (Auto) 0.1, Baso % (Auto) 0.1, Absolute Neuts (auto) 6.7, Absolute Lymphs (auto) 3.73, Nucleated RBC % 0, Sodium 139, Potassium 3.8, Chloride 111 H, Carbon Dioxide 21.0, Anion Gap 7, BUN 72 H, Creatinine 2.99 H, Est GFR (MDRD) Af Amer 26 L, Est GFR (MDRD) Non-Af 21 L, BUN/Creatinine Ratio 24.1 H, Glucose 143 H, Calcium 9.9, Total Bilirubin 0.70, AST 21, ALT 33, Alkaline Phosphatase 108, Total Protein 7.8, Albumin 3.7, Globulin 4.1, Albumin/Globulin Ratio 0.9, Lipase 25 02/06/23 14:00: Urine Color Yellow, Urine Clarity Clear, Urine pH 5.0, Ur Specific [place] 1.025, Urine Protein 30 H, Urine Glucose (UA) Normal, Urine Ketones 5 H, Urine Occult Blood 10 H, Urine Nitrite Negative, Urine Bilirubin Negative, Urine Urobilinogen Normal, Ur Leukocyte Esterase Negative, Urine RBC 0-5 SEEN, Urine WBC 0 SEEN, Ur Squamous Epith Cells 0-5 SEEN, Urine Bacteria 1+, Hyaline Casts 5-10 SEEN, Coarse Granular Casts 0-5 SEEN, Urine Mucus 0 SEEN, Ur Random Sodium 14, Urine Creatinine 325.00 02/06/23 15:18: Magnesium 2.2, Troponin I High Sens 27 02/07/23 07:00: WBC 12.1 H, RBC 4.69, Hgb 14.4, Hct 44.1, MCV 94.0, MCH 30.7, MCHC 32.7, RDW Std Deviation 47.5 H, RDW Coeff of Chloe 13.7, Plt Count 183, MPV 10.5, Sodium 139, Potassium 3.9, Chloride 111 H, Carbon Dioxide 22.0, Anion Gap 6, BUN 84 H, Creatinine 3.25 H, Estim Creat Clear Calc 15.97, Est GFR (MDRD) Af Amer 23 L, Est GFR (MDRD) Non-Af 19 L, BUN/Creatinine Ratio 25.8 H, Glucose 86, Calcium 9.1, Magnesium 2.2 Micro: Microbiology 02/06/23 12:49 Nasal Secretion SARS-CoV-2 & FLU Antigen (Rapid) - Final Radiography Diagnostic Testing: Radiology Impression Brain CT 02/06/23 12:15 IMPRESSION: No acute intracranial process. Electronically Signed: Sam Rocha MD at 13:55 EST , Chest X-Ray 02/06/23 12:15 IMPRESSION: No radiographic evidence of acute cardiopulmonary disease. Electronically Signed: Sam Rocha MD at 13:07 EST , Renal Ultrasound 02/06/23 14:38 IMPRESSION: Left renal cyst. Electronically Signed: Jb RosalesDO at 20:07 EST , Physical Exam Narrative General: Alert, oriented, no apparent distress HEENT: Atraumatic, normocephalic Eyes: extraocular movements grossly intact Neck: Supple Respiratory: normal respiratory effort Cardiovascular: no edema appreciated GI: Soft, nontender, nondistended, no rebound, guarding, rigidity Extremities: Moving all extremities Neuro: No overt focal neurological deficits Psych: Cooperative Assessment & Plan Assessment/Plan (1) Acute kidney injury: (2) Diarrhea: (3) Acute dehydration: PLAN: Plan Patient is an 87-year-old male who presented to [facility] ED on 02/06/2023 with worsening weakness and GI symptoms. 1. Generalized weakness, nausea/vomiting/diarrhea, dehydration, suspected orthostatic hypotension Most likely cause seems to be a viral gastroenteritis, leading to fairly significant diarrhea with nausea and vomiting, poor p.o. intake and dehydration. Reported intermittent shortness of breath over this timeframe, but no cough or sputum production, no fevers or chills. Chest x-ray nonacute. UA noninfectious. Considered an atypical presentation of ACS given history of ischemic cardiomyopathy with CAD as noted below, however EKG in ED showed no ischemic changes, initial troponin negative. ? Admit under inpatient status to PCU. Stool PCR ordered. S/p 1 L of IV fluids in the ED with improvement and blood pressure and patient's general weakness; encouraged p.o. intake, could consider supplementing with further IV fluids as needed. Follow-up daily labs. Holding home antihypertensive medications as noted below. PT/OT/case management consulted; patient lives at home with his , reports no issues taking care of himself at home until this recent illness. -02/07: Awaiting enteric panel, PT/OT. Reported some spinning sensation when he turns over in bed but overall feels he is improving and diarrhea is decreasing. Continue to optimize. Will be gently hydrating 2. 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 Baseline creatinine 1.4-1.8. Most likely prerenal in setting of volume depletion as noted above. Home losartan and hydrochlorothiazide also contributing to worsening TRE. Patient reports good urine output until last few days, minimal urine output since then. Has history of BPH with frequent nocturia, states this has been stable for last few years. ? Follow-up a.m. BMP. Urine sodium and creatinine ordered to calculate FeNa. Renal/bladder ultrasound ordered to rule out postobstructive etiology. Monitor urine output. -02/07: Kidney function worsened again today, added additional urine studies, renal ultrasound without obstruction, will give gentle hydration. 3. Ischemic cardiomyopathy, history of CAD s/p CABG x 5 (2001), history of inf erior MT, nonrheumatic mitral valve insufficiency, secondary pulmonary hypertension Last echo from 11/2019 showed an EF of 40%, hypokinesis in several areas around the inferior/septal region of the heart, mild diastolic function. Follows cardiology, last office visit was in 05/2022. No significant functional status changes noted at that time, was continued on home home medications for aggressive medical management. Was noted on that office visit note that plan was to possibly repeat echo at his next office visit. ? Will repeat echo at this time. Have low concern for cardiac etiology causing acute symptoms as noted above, but given known heart dysfunction seems prudent to reassess his cardiac function at this time. Continue home aspirin, atorvastatin. Continue home Lopressor, otherwise hold home antihypertensives as noted below given TRE and suspected orthostatic hypotension, restart as able. -02/07: Will be gently hydrating, no obstruction, kidney function worsened Chronic medical conditions: ? Hypertension, hyperlipidemia: Holding home amlodipine, losartan, isosorbide mononitrate for now, restart as able. Okay to continue home Lopressor. Continue home atorvastatin. ? History of paroxysmal atrial fibrillation: Noted on cardiology office note from 05/2022. Not on anticoagulation, seems that he had a few minor episodes that have not recurred. EKG showed normal sinus rhythm on admit. Monitor. Continue home Lopressor. ? GERD: Continue home PPI. ? Hypothyroidism: Continue home Synthroid. ? 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 ? History of partial colectomy ? History of cholecystectomy DVT prophylaxis: Heparin subcu CODE STATUS: Full code, verified Expected disposition: Home, 2 to 3 days Total clinical time spent by myself addressing the patient's medical issues, reviewing all the data, and collaborating with patient's care team: 35 minutes. Charges/Coding Visit Charges Inpatient E&M: 26058 Subs Hosp L2
[2023-02-07] MEDS: 0.9% Normal Saline (1000mL) 1,000 ML 50 ML IV (10:36)
[2023-02-07] MEDS: 0.9% Saline Lock 10 ML Syringe IV (10:37)
--- NOTE | 2023-02-07 10:50 | CASEMGMT ---
RN CM Face to Face with patient for initial transition planning/care coordination assessment. RN CM introduced self and role at [facility]. Patient lying in bed, alert and oriented. Patient willing to participate in assessment and is able to answer all questions appropriately. Care providers, pharmacy, and demographics verified. Patient wishes to discharge home, denies need for home health at this time. Patient states he has no further needs or concerns at this time. CM to follow for discharge planning needs that may arise. PCP: [facility] Specialists: [facility]: [facility] Insurance: INDIRA Martinez Prescription Benefit: yes Living Will/HPOA: yes, Sendy Johnson LNOK: self, Living Arrangements: Patient lives with in a mobile home with 4 steps and railing to enter the home. Patient is independent at home. Transportation: self, DME/HHC: Patient has shower chair, raised toilet, cane, walker, grab bars at home. No previous HHC or SNF Disposition Plan: Patient to discharge home with family support and follow-up plans in place. Lavern SALINASN, RN, CM
[2023-02-07 13:27] LABS: Osmolality, Urine 562 mOsm/KG
[2023-02-07 13:44] LABS: Urea Nitrogen, Urine 934 mg/dL (NO RANGE EST.); Urine Chloride 26 mmol/L (Not Establ.); Urine Sodium 19 mmol/L (Not Establ.)
--- NOTE | 2023-02-07 14:17 | CHAPLAIN ---
Type of Pastoral Visit ___ Initial Visit ___ Follow-up Visit ___ On-call Visit ___ General Patient Visit ___ Spiritual Assessment ___ Family Conference ___ Bereavement ___ Rapid Response ___ Code Blue ___ Other (describe below) Pastoral Care Referral From _x__ Patient ___ Family ___ Nurse ___ Physician ___ Java Programmer ___ Womens Volleyball Coach ___ Other (describe below) Sacrament/Intervention ___ Active listening ___ Anointing ___ Mormonism ___ Bereavement ___ Communion ___ Bethany exploration ___ _x_ Life review _x__ Prayer ___ Reconciliation ___ Sacrament of Sick ___ Supportive presence ___ Wedding ___ Other (describe below) Pastoral Comments patient has no worries or concerns at this time; prayer is welcomed
[2023-02-07] MEDS: Ensure Plus High Protein 120 ML LIQUID PO ×2 (17:28→19:28)
[2023-02-07] MEDS: Atorvastatin Calcium 80 MG Tablet PO (19:32)
[2023-02-08 02:52] VITALS: BP 110/55; PULSE 56; RESP 16; TEMP 36.6; O2SAT 98
[2023-02-08] MEDS: Heparin Injection (Vial) 5,000 UNIT/ML VIAL 5000 UNIT SC (04:53)
[2023-02-08] MEDS: Levothyroxine 25 MCG TABLET PO (04:53)
[2023-02-08 05:44] LABS: Absolute Lymphocyte Count 3.67 X10^3/uL (0.83-4.51); Absolute Neutrophil Count 5.8 X10^3/uL (2.0-7.7); Basophil# 0.03 X10^3/uL; Basophil% 0.3 % (0-1); Eosinophil# 0.07 X10^3/uL; Eosinophils% 0.7 % (0-5); Hematocrit 39.8 % (40-54); Lymphocyte # 3.67 X10^3/ul (0.83-4.51); Lymphocyte % 34.5 % (19-41); Mean Corp Hgb Conc 32.7 g/dL (32-36); Mean Corpuscular Hgb 30.4 pg (27.0-32.0); Mean Platelet Vol. 10.2 fl (6.2-12.0); Monocyte% 9.4 % (0-10); NRBC Flagged by Analyzer 0 % (0-5); Neutrophil # 5.82 X10^3/uL (2.7-7.7); Neutrophil % 54.7 % (47-70); Platelet Count 158 K/mm3 (150-450); RBC Distribution Width CV 13.4 % (11.6-14.6); RBC Distribution Width SD 45.8 fl (35.1-43.9); Red Blood Count 4.28 M/mm3 (4.6-6.2); White Blood Count 10.6 K/mm3 (4.4-11.0)
[2023-02-08 06:07] LABS: Anion Gap 8 (5-15); BUN 80 mg/dL (7-18); BUN/Creat Ratio 33.9 RATIO (10-20); Calcium,Total 8.3 mg/dL (8.5-10.1); Chloride 113 mmol/L (98-107); Creatinine, Serum 2.36 mg/dL (0.70-1.30); EST Glomerular Filtration Rate 28 mL/min (>60); Est Glom Filt Rate - Afr Amer 34 mL/min (>60); Estimated Creatinine Clearance 21.99 ml/min; Glucose 89 mg/dL (74-106); Potassium 3.8 mmol/L (3.5-5.1); Sodium Level 141 mmol/L (136-145)
[2023-02-08 09:00] VITALS: BP 113/62; PULSE 62; RESP 18; TEMP 36.3; O2SAT 97
[2023-02-08] MEDS: Pantoprazole Sodium 20 MG Tablet PO (09:02)
[2023-02-08] MEDS: Ensure Plus High Protein 120 ML LIQUID PO ×2 (09:02→14:05)
[2023-02-08] MEDS: Cholecalciferol (Vit D3) 125 MCG CAPSULE (5,000 UNITS) PO (09:02)
[2023-02-08 09:03] VITALS: PULSE 62
[2023-02-08] MEDS: Metoprolol Tartrate 50 MG Tablet PO (09:03)
[2023-02-08] MEDS: Ursodiol 250 MG Tablet 500 MG PO (09:03)
[2023-02-08] MEDS: Aspirin 81 MG TAB.CHEW PO (09:03)
--- NOTE | 2023-02-08 13:23 | DCINST_ITS ---
Discharge Instructions Diet Discharge Diet: Light diet - advance as tolerated Activity Discharge Activity: - (Increase activity tolerated) Follow Up Care Test Results: Test results from this visit will be discussed in further detail at your follow- up appointment, if applicable. Discharge Plan Admission Admit Date/Time: 02/06/23 14:33 Primary Reason for Your Visit: Nausea, diarrhea Attending Provider: Palak Reyes Primary Care Provider: Bernice Aquino Consulting Providers: Kevin Delacruz Instructions Patient Instructions: ED Gastroenteritis, Viral (Adult) Additional Instructions / Restrictions: DISCHARGE INSTRUCTIONS PLEASE READ *Please take this with you to your next doctors appointment* -Given your blood pressure has been well controlled on metoprolol only will discharge with instructions to continue metoprolol and hold your other blood pressure medications. Would advise monitoring your blood pressure daily and logging this as these will likely need to be added back with time. Would not resume your losartan?hydrochlorothiazide until having repeat laboratory evaluation and discussing with your primary care physician -Advance your diet as tolerated, will be important to stay hydrated as well -Would recommend lab work (BMP) to check your kidney function in 2 to 3 days through your primary care physician's office. Please call their office upon discharge to obtain order for lab work. -Please call your primary care provider's office upon discharge to schedule a hospital follow up within 1 week. -For any concerning signs or symptoms please call 911 or proceed to the nearest emergency department Discharge Orders/Prescriptions Prescriptions: Continued ursodiol 500 mg tablet 500 mg PO BID potassium gluconate 600 mg (99 mg) tablet 600 mg (99 mg) tablet 600 mg PO DAILY cholecalciferol (vitamin D3) 125 mcg (5,000 unit) capsule 125 mcg PO DAILY pantoprazole 20 mg tablet,delayed release (DR/EC) 20 mg PO DAILY (DME) Handicap Placard See Rx Instructions .Route .MEDSUPPLY Qty: 1 0RF Rx Instructions: Expires: 5 years Dx: debility vdbewquh-wdb-UL-lycopen-lutein 1 EACH tablet 1 ea PO DAILY Patient Comments: supplement aspirin 81 MG tablet,chewable 81 mg PO DAILY@0800 atorvastatin 80 mg tablet 80 mg PO QHS Qty: 90 3RF metoprolol tartrate 50 mg tablet 50 mg PO BID Qty: 180 3RF Held amlodipine 5 mg tablet 5 mg PO DAILY Hold Instructions: Resume on 02/12/23. losartan-hydrochlorothiazide 50-12.5 mg tablet See Rx Instructions .ROUTE .COMPLEX Qty: 90 3RF Hold Instructions: Resume on 02/20/23. Would discuss with your primary care physician optimal timing for resuming this Dose Instruction: TAKE 1 TABLET DAILY Rx Instructions: TAKE 1 TABLET DAILY isosorbide mononitrate 60 mg tablet extended release 24 hr 60 mg PO QAM Qty: 90 3RF Hold Instructions: Resume on 02/13/23. Referrals / Follow Up: Bernice Aquino MD [Primary Care Provider] - Within 1 Week Disposition Disposition (needs filled in before D/C Order can be placed): Home, Self Care
--- NOTE | 2023-02-08 13:28 | DS.PCM_ITS ---
Providers Date of Admission: 02/06/23 Primary Care Physician: Dr. Bernice Aquino MD Reason For Visit: ACUTE KIDNEY INUJURY Diagnosis Discharge Diagnosis (1) Acute kidney injury: Status: Acute Code(s): N17.9 - Acute kidney failure, unspecified (2) Diarrhea: Status: Acute Code(s): R19.7 - Diarrhea, unspecified (3) Acute dehydration: Status: Acute Code(s): E86.0 - Dehydration Plan 1. Generalized weakness, nausea/vomiting/diarrhea, dehydration-suspected viral gastroenteritis 2. TRE on CKD stage III, history of BPH s/p TURP 3. Ischemic cardiomyopathy, history of CAD s/p CABG x 5 (2001), history of inferior MS, nonrheumatic mitral valve insufficiency, secondary pulmonary hypertension Chronic medical conditions: ? Hypertension, hyperlipidemia: Holding home amlodipine, losartan, isosorbide mononitrate for now, restart as able. Okay to continue home Lopressor. Continue home atorvastatin. ? History of paroxysmal atrial fibrillation: Noted on cardiology office note from 05/2022. Not on anticoagulation, seems that he had a few minor episodes that have not recurred. EKG showed normal sinus rhythm on admit. Monitor. Continue home Lopressor. ? GERD: Continue home PPI. ? Hypothyroidism: Continue home Synthroid. ? 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 ? History of partial colectomy ? History of cholecystectomy Medications at Discharge Home Medications yryqlhzg-hrw-cnudk acid 0.4 mg-lycopene 300 mcg-lutein 250 mcg tablet 1 ea PO DAILY supplement 09/04/13 aspirin 81 mg chewable tablet 81 mg PO DAILY@0800 prevention 08/30/14 ursodiol 500 mg tablet 500 mg PO BID bladder 08/07/18 potassium gluconate 600 mg (99 mg) tablet 600 mg PO DAILY supplement 12/07/19 cholecalciferol (vitamin D3) 125 mcg (5,000 unit) capsule 125 mcg PO DAILY supplelment 09/09/20 atorvastatin 80 mg tablet 80 mg PO QHS cholestrol #90 tabs 11/21/20 pantoprazole 20 mg tablet,delayed release 20 mg PO DAILY decrease acid 03/31/21 Handicap Placard #1 ea 10/05/21 losartan 50 mg-hydrochlorothiazide 12.5 mg tablet See Rx Instructions .Route .COMPLEX blood pressure #90 tabs 02/19/22 isosorbide mononitrate 60 mg tablet,extended release 24 hr 60 mg PO QAM heart #90 tabs 03/30/22 metoprolol tartrate 50 mg tablet 50 mg PO BID heart #180 tabs 07/19/22 amlodipine 5 mg tablet 5 mg PO DAILY blood pressure 02/06/23 Hospital Course Summary of Care Provided Minutes Spent on Discharge: 32 Hospital Course: Per HPI: KT STILES, is a 87 M who presented to [facility] ED on 02/06/2023 for worsening generalized weakness, nausea/vomiting/diarrhea an d dehydration. Patient seen at bedside the ED, present. Patient comfortably bed, conversing normally, no acute distress. Patient states that his energy level feels much improved after receiving IV fluids in the ED. Patient's states that he looks much improved after IV fluids. Patient lives at home with his , has been very functional around the home until the last few days. Over that timeframe he has had fairly severe diarrhea, up to 10- 15 bowel movements per day. Last bowel movement was this morning prior to coming to the ED. Has also had nausea with several doses of vomiting and has had minimal p.o. intake. Has had worsening weakness to the point where it has been difficult for him to get out of bed and walk around. Also reports significant dizziness/lightheadedness when going from sitting to standing and with moving to certain positions while laying in bed. Patient has been taking all home medications as prescribed. Has not checked his blood pressure at home over the past few days. Patient typically has good urine output but noticeably has had minimal urine output over the past few days. Does have history of BPH, had a TURP procedure done for this a few years ago. Reports fairly frequent nocturia at baseline, which has been stable for him. He otherwise denies any fevers or chills or chest pain. Patient does report intermittent shortness of breath but has difficulty characterizing the shortness of breath. He currently denies any shortness of breath or difficulty breathing. He denies any significant abdominal pain or discomfort. No other acute concerns at this time. INTERVAL HISTORY: Patient improved with supportive care, stool studies negative, patient decreased to 2 bowel movements that were becoming more formed over 24 hours no more nausea, was tolerating diet and maintaining adequate p.o. intake, dizzy spells he said were specific to when he would be laying down in bed and turning over in your self-limited, suspect a viral gastroenteritis that is self- limited and patient already significantly improving. Discussed discharge home with patient he is comfortable with this plan. Discharged home in stable condition with the following discharge instructions: -Given your blood pressure has been well controlled on metoprolol only will discharge with instructions to continue metoprolol and hold your other blood pressure medications. Would advise monitoring your blood pressure daily and logging this as these will likely need to be added back with time. Would not resume your losartan?hydrochlorothiazide until having repeat laboratory evaluation and discussing with your primary care physician -Advance your diet as tolerated, will be important to stay hydrated as well -Would recommend lab work (BMP) to check your kidney function in 2 to 3 days through your primary care physician's office. Please call their office upon discharge to obtain order for lab work. -Please call your primary care provider's office upon discharge to schedule a hospital follow up within 1 week. -For any concerning signs or symptoms please call 911 or proceed to the nearest emergency department Physical Exam Narrative General: Alert, oriented, no apparent distress HEENT: Atraumatic, normocephalic Eyes: Anicteric, normal conjunctiva, extraocular movements grossly intact Neck: Supple Respiratory: Clear to auscultation bilaterally, normal respiratory effort Cardiovascular: Regular rate and rhythm GI: Soft, nontender, nondistended Extremities: No edema Musculoskeletal: Moving all extremities Neuro: No overt focal neurological deficits Skin: No rashes appreciated Psych: Cooperative Medical Records Data Medical Nutrition Assessment Dietitian: Malnutrition Criteria Met Start: 02/07/23 14:31 Freq: Status: Active Protocol: Document 02/07/23 14:31 AG (Rec: 02/07/23 14:31 AG Desktop) Nutrition Malnutrition Evidence of Malnutrition Exists Yes Malnutrition (severe): Acute Illness/Injury Evidenced By Suboptimal Energy Intake ( Severe),Weight Loss (Severe) Clinical Problem Acute Disease or Injury Related Malnutrition Etiology severe, acute malnutrition related to poor PO intake, GI losses Signs/Symptoms as evidenced by unintentional 8% wt loss < 1 week, estimated PO intake meeting < 50% of estimated energy needs x 5 days Status Active Problem Recommendation Dietitian Recommendations/Changes continue cardiac diet as tolerated; consider liberalizing to regular if PO intake declines/wt loss continues. Will offer 120mL ensure plus high protein 4x/ day w/ medpass for additional nutrition if consumed given evidence of malnutrition Weight / BMI Weight Weight: 69.2 kg Body Mass Index (BMI) 21.9 ABG / Lab / Microbiology Data 02/08/23 05:28 02/08/23 05:28 Laboratory: Laboratory Results - last 24 hr 02/07/23 12:20: Ur Random Sodium 19, Urine Creatinine 240.00, Urine Potassium 54.0, Urine Chloride 26, Urine Urea Nitrogen 934 02/08/23 05:28: WBC 10.6, RBC 4.28 L, Hgb 13.0, Hct 39.8 L, MCV 93.0, MCH 30.4, MCHC 32.7, RDW Std Deviation 45.8 H, RDW Coeff of Chloe 13.4, Plt Count 158, MPV 10.2, Immature Gran % (Auto) 0.400, Neut % (Auto) 54.7, Lymph % (Auto) 34.5, Davidson % (Auto) 9.4, Eos % (Auto) 0.7, Baso % (Auto) 0.3, Absolute Neuts (auto) 5.8, Absolute Lymphs (auto) 3.67, Nucleated RBC % 0, Sodium 141, Potassium 3.8, Chloride 113 H, Carbon Dioxide 20.0 L, Anion Gap 8, BUN 80 H, Creatinine 2.36 H, Estim Creat Clear Calc 21.99, Est GFR (MDRD) Af Amer 34 L, Est GFR (MDRD) Non-Af 28 L, BUN/Creatinine Ratio 33.9 H, Glucose 89, Calcium 8.3 L Microbiology: Microbiology 02/07/23 05:04 Stool Enteric Bacteriology - Final 02/06/23 12:49 Nasal Secretion SARS-CoV-2 & FLU Antigen (Rapid) - Final Radiography Diagnostic Testing: Radiology Impression Echocardiogram 02/06/23 15:17 Interpretation Summary Normal LV size. Segmental dysfunction with preserved ejection fraction (see wall motion). Stage 1 diastolic dysfunction. The left ventricular ejection fraction is 50 %. Pulmonary artery systolic pressure is 36 mmHg. Ordering Physician: Kevin Delacruz Referring Physician: Bernice Aquino Performed By: Valeria George RDCS, RVT D/C Instructions Discharge Diet: Light diet - advance as tolerated Meaningful Use Info Meaningful Use Diagnoses (Choose all that apply): None applicable Discharge Plan Admission Admit Date/Time: 02/06/23 14:33 Primary Reason for Your Visit: Nausea, diarrhea Attending Provider: Palak Reyes Primary Care Provider: Bernice Aquino Consulting Providers: Kevin Delacruz Instructions Patient Instructions: ED Gastroenteritis, Viral (Adult) Additional Instructions / Restrictions: DISCHARGE INSTRUCTIONS PLEASE READ *Please take this with you to your next doctors appointment* -Given your blood pressure has been well controlled on metoprolol only will discharge with instructions to continue metoprolol and hold your other blood pressure medications. Would advise monitoring your blood pressure daily and logging this as these will likely need to be added back with time. Would not resume your losartan?hydrochlorothiazide until having repeat laboratory evaluation and discussing with your primary care physician -Advance your diet as tolerated, will be important to stay hydrated as well -Would recommend lab work (BMP) to check your kidney function in 2 to 3 days through your primary care physician's office. Please call their office upon discharge to obtain order for lab work. -Please call your primary care provider's office upon discharge to schedule a hospital follow up within 1 week. -For any concerning signs or symptoms please call 911 or proceed to the nearest emergency department Discharge Orders/Prescriptions Prescriptions: Continued ursodiol 500 mg tablet 500 mg PO BID potassium gluconate 600 mg (99 mg) tablet 600 mg (99 mg) tablet 600 mg PO DAILY cholecalciferol (vitamin D3) 125 mcg (5,000 unit) capsule 125 mcg PO DAILY pantoprazole 20 mg tablet,delayed release (DR/EC) 20 mg PO DAILY (DME) Handicap Placard See Rx Instructions .Route .MEDSUPPLY Qty: 1 0RF Rx Instructions: Expires: 5 years Dx: debility cwzkngkf-tgc-ZU-lycopen-lutein 1 EACH tablet 1 ea PO DAILY Patient Comments: supplement aspirin 81 MG tablet,chewable 81 mg PO DAILY@0800 atorvastatin 80 mg tablet 80 mg PO QHS Qty: 90 3RF metoprolol tartrate 50 mg tablet 50 mg PO BID Qty: 180 3RF Held amlodipine 5 mg tablet 5 mg PO DAILY Hold Instructions: Resume on 02/12/23. losartan-hydrochlorothiazide 50-12.5 mg tablet See Rx Instructions .ROUTE .COMPLEX Qty: 90 3RF Hold Instructions: Resume on 02/20/23. Would discuss with your primary care physician optimal timing for resuming this Dose Instruction: TAKE 1 TABLET DAILY Rx Instructions: TAKE 1 TABLET DAILY isosorbide mononitrate 60 mg tablet extended release 24 hr 60 mg PO QAM Qty: 90 3RF Hold Instructions: Resume on 02/13/23. Referrals / Follow Up: Bernice Aquino MD [Primary Care Provider] - 02/14/23 2:10 pm Disposition Disposition (needs filled in before D/C Order can be placed): Home, Self Care Charges/Coding Visit Charges Inpatient E&M: 44401 Disch Hosp >30min
[2023-02-08 13:55] VITALS: BP 138/67; PULSE 56; RESP 18; TEMP 36.4; O2SAT 96
--- NOTE | 2023-02-08 14:19 | PHA.DC.MR.R ---
Pharmacy [place] Med Reconciliation Pharmacy Service has performed discharge medication reconciliation for this patient. The patient's discharge medication list was reviewed for discrepancies and discrepancies were resolved. Medications at Discharge Home Medications yuucmnrd-wmc-bdczy acid 0.4 mg-lycopene 300 mcg-lutein 250 mcg tablet 1 ea PO DAILY supplement 09/04/13 aspirin 81 mg chewable tablet 81 mg PO DAILY@0800 prevention 08/30/14 ursodiol 500 mg tablet 500 mg PO BID bladder 08/07/18 potassium gluconate 600 mg (99 mg) tablet 600 mg PO DAILY supplement 12/07/19 cholecalciferol (vitamin D3) 125 mcg (5,000 unit) capsule 125 mcg PO DAILY supplelment 09/09/20 atorvastatin 80 mg tablet 80 mg PO QHS cholestrol #90 tabs 11/21/20 pantoprazole 20 mg tablet,delayed release 20 mg PO DAILY decrease acid 03/31/21 Handicap Placard #1 ea 10/05/21 losartan 50 mg-hydrochlorothiazide 12.5 mg tablet See Rx Instructions .Route .COMPLEX blood pressure #90 tabs 02/19/22 isosorbide mononitrate 60 mg tablet,extended release 24 hr 60 mg PO QAM heart #90 tabs 03/30/22 metoprolol tartrate 50 mg tablet 50 mg PO BID heart #180 tabs 07/19/22 amlodipine 5 mg tablet 5 mg PO DAILY blood pressure 02/06/23
--- NOTE | 2023-02-08 15:31 | CASEMGMT ---
Patient has order for discharge. RN CM in to discuss needs at discharge. Patient denies needs at discharge. Patient had no further questions or concerns at this time.
== END 2023-02-08 15:32 | disposition home or self-care (01) | DRG 682 ==
LOC: ED 14:20 → PCU 14:33
PROVIDERS: Nurse Practitioner; Admitting Provider Hospitalist; Emergency Provider Emergency Medicine; PCP Family Medicine; Visit Provider Internal Medicine
DX: N17.9 Acute kidney failure, unspecified (principal); E43 Unspecified severe protein-calorie malnutrition; I13.0 Hypertensive heart and chronic kidney disease with heart failure and stage 1 through stage 4 chronic kidney disease, or unspecified chronic kidney disease; I27.21 Secondary pulmonary arterial hypertension; E11.22 Type 2 diabetes mellitus with diabetic chronic kidney disease; I50.9 Heart failure, unspecified; E86.0 Dehydration; N18.30 Chronic kidney disease, stage 3 unspecified; I48.0 Paroxysmal atrial fibrillation; E03.9 Hypothyroidism, unspecified; I25.10 Atherosclerotic heart disease of native coronary artery without angina pectoris; K21.9 Gastro-esophageal reflux disease without esophagitis; I95.1 Orthostatic hypotension; I25.5 Ischemic cardiomyopathy; E78.5 Hyperlipidemia, unspecified; A08.4 Viral intestinal infection, unspecified; Z68.21 Body mass index [BMI] 21.0-21.9, adult; Z79.82 Long term (current) use of aspirin; Z79.899 Other long term (current) drug therapy; Z87.891 Personal history of nicotine dependence; Z95.1 Presence of aortocoronary bypass graft; Z95.5 Presence of coronary angioplasty implant and graft
CPT/HCPCS: 36415; 70450; 71045; 76770; 80048; 80053; 81001; 82436; 82570; 83690; 83735; 83935; 84133; 84300; 84484; 84540; 85025; 85027; 87428; 87506; 93005; 93306; 97162; 97166; 97802; 99282; J7030; Q9957; A4216; J2405

== ENCOUNTER → 2023-02-12 | Outpatient (CLI) | payer BC, MEDICARE, SELFPAY ==
[2023-02-12 12:43] LABS: Anion Gap 5 (5-15); BUN 37 mg/dL (7-18); BUN/Creat Ratio 23.1 RATIO (10-20); Calcium,Total 8.7 mg/dL (8.5-10.1); Chloride 115 mmol/L (98-107); EST Glomerular Filtration Rate 44 mL/min (>60); Est Glom Filt Rate - Afr Amer 53 mL/min (>60); Glucose 85 mg/dL (74-106); Potassium 4.6 mmol/L (3.5-5.1); Sodium Level 145 mmol/L (136-145)
== END | disposition home or self-care (01) ==
LOC: LAB 10:48
PROVIDERS: PCP Family Medicine; Referring Provider Family Medicine; Visit Provider Family Medicine
DX: K29.90 Gastroduodenitis, unspecified, without bleeding (principal)
CPT/HCPCS: 36415; 80048

== ENCOUNTER → 2023-03-08 | Outpatient (CLI) | payer BC, MEDICARE, SELFPAY ==
--- NOTE | 2023-03-08 13:06 | RAD_ITS ---
STUDY: XR Chest 2 Views 03/08/2023 1:10 PM REASON FOR EXAM: Male, 87 years old. BILAT BACK PAIN COMPARISON: 02/06/2023 TECHNIQUE: XR Chest 2 Views FINDINGS: There is no demonstrated pleural abnormality. There are multiple median sternotomy wires. Enlarged heart size. Normal mediastinum. Normal morenita. Prominent appearing increased interstitial lung markings. Normal visualized pulmonary arteries. There is atherosclerotic calcification of the aortic arch with tortuosity. There are diffuse degenerative changes of the visualized thoracic spine. There is degenerative osteoarthritis of the bilateral shoulders. There are no acute findings of the upper abdomen. RAD/Chest PA and Lateral IMPRESSION: There are no acute findings. Electronically Signed: Andriy Ríos MD at 14:54 EST ,
--- OUTSIDE RECORDS SUMMARY | 2023-03-08 13:13 | XMS RPT_ITS | CCD ---
Author Name Unknown Address [address] [place] [id number] Organization [facility] Care Team Providers Care Brush Holder Inspector Name Role Phone TIMA FUNK Unavailable Unavailab rowena RUBALCAVA MD, KAREN Primary Care Physician [phone] ALFRED EVANS Attending Unavailable KAREN RUBALCAVA MD Primary Care Unavailable EHSAN WHALEN Consulting Unavailable KAREN RUBALCAVA MD Consulting Unavailable ALFRED EVANS Attending Unavailable KAREN RUBALCAVA MD Primary Care Unavailable ALFRED EVANS Attending Unavailable KAREN RUBALCAVA MD Primary Care Unavailable Problems Problem Classification Problem Date Documented Da te Episodic/Chronic Esophageal disorders (4 sources) Gastro-esophageal reflux disease without esophagitis; Translations: [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] Onset: 11-26-2022 Chronic Results Test Name Value Interpretation Reference Range Facil ity Encounters Encounter Date Encounter Type Care Provider Facility Start: 11-26-2022 End: 12-01-2022 ambulatory ALFRED EVANS Facility:A Start: 11-07-2022 End: 11-08-2022 ambulatory ALFRED EVANS Facility:B Start: 11-07-2022 End: 11-07-2022 Patient encounter procedure ALFRED EVANS MD [facility] Start: 04-16-2022 End: 04-17-2022 ambulatory ALFRED EVANS Facility:B Start: 04-16-2022 End: 04-16-2022 Patient encounter procedure ALFRED EVANS MD [facility] Start: 10-09-2021 End: 10-09-2021 Patient encounter procedure ALFRED EVANS MD [facility] Start: 03-30-2021 End: 03-30-2021 Patient encounter procedure ALFRED EVANS MD [facility] Start: 09-26-2020 End: 10-21-2021 Lab-Standing Order ALFRED EVANS MD [facility] Start: 10-23-2017 End: 10-23-2017 Patient encounter TIMA FUNK [facility] Payers Date Payer Category Payer Unknown [id number] 2021 Medicare [id number] 1935 Unknown [id number] 1935 Unknown [id number] 1935 Unknown [id number] Clinical Note 11-07-2022 Note Date & Type Note Facility 11-07-2022 Note ORIGINAL EXAMINATION: COMPLETE ABDOMINAL ULTRASOUND11/07/2022 9:15 am ABDOMEN COMPLETE COMPARISON: 04/16/2022. HISTORY: ORDERING SYSTEM PROVIDED HISTORY: Reason for Exam: Cirrhosis FINDINGS: The liver measures 16.5 cm in maximal diameter and is not enlarged. The liver has a heterogeneous echotexture with lobular contour consistent with the known history of cirrhosis. No focal hepatic lesion is seen. There is no evidence of intra or extrahepatic biliary dilation. Common bile duct has a maximal diameter of 4.5 mm. The gallbladder is surgically absent. Pancreas is not well visualized secondary to overlying bowel gas. No gross peripancreatic fluid collection is seen. The spleen is not enlarged and measures 9.3 x 5.0 x 4.5 cm. There is no evidence of retroperitoneal fluid collection but the aorta and inferior vena cava are not well visualized secondary to overlying bowel gas. Left kidney measures 9.0 x 4.4 x 4.2 cm and the right kidney measures 8.4 x 4.6 x 3.7 cm. There is no evidence of hydronephrosis. No perinephric fluid collections are identified. IMPRESSION: There is no evidence of focal hepatic lesion. Heterogeneous hepatic echotexture with nodular liver contours consistent with cirrhosis. Interpreted by: Shree Santillan Preliminary Report By: Shree Santillan Electronically signed By Shree Santillan Dictated Date: 11/07/2022 9:56:24 AM Prelim Date: 11/07/2022 9:59:43 AM Sign Date: 11/07/2022 9:59:43 AM Ordering Provider: [facility] Clinical Note 04-16-2022 Note Date & Type Note Facility 04-16-2022 Note ORIGINAL EXAMINATION: COMPLETE ABDOMINAL ULTRASOUND04/16/2022 7:50 am COMPARISON: Ultrasound 10/09/2021 HISTORY: ORDERING SYSTEM PROVIDED HISTORY: Reason for Exam: CIRRHOSIS FINDINGS: The liver is coarsened mildly heterogeneous and somewhat nodular in appearance. No focal mass is seen. No intrahepatic bile duct dilatation. The common duct is 6.8 mm at the bernadine hepatis. The gallbladder is surgically absent. The visualized pancreas is normal but significant portions are obscured by bowel gas. No splenomegaly. No ascites. Limited survey images of both kidneys show normal cortical thickness and echogenicity with no pelvocaliectasis. Visualized aorta and IVC are normal but portions of these vessels are obscured by bowel gas also. IMPRESSION: Evidence of diffuse hepatocellular disease with nodular appearance of the liver. This would be compatible with cirrhosis. No splenomegaly or ascites. Interpreted by: Pedro Day MD Preliminary Report By: Pedro Day MD Electronically signed By Pedro Day MD Dictated Date: 04/16/2022 1:31:35 PM Prelim Date: 04/16/2022 1:33:11 PM Sign Date: 04/16/2022 1:33:11 PM Ordering Provider: [facility] Clinical Note 04-16-2022 Note Date & Type Note Facility 04-16-2022 Note ORIGINAL EXAMINATION: COMPLETE ABDOMINAL ULTRASOUND04/16/2022 7:50 am COMPARISON: Ultrasound 10/09/2021 HISTORY: ORDERING SYSTEM PROVIDED HISTORY: Reason for Exam: CIRRHOSIS FINDINGS: The liver is coarsened mildly heterogeneous and somewhat nodular in appearance. No focal mass is seen. No intrahepatic bile duct dilatation. The common duct is 6.8 mm at the bernadine hepatis. The gallbladder is surgically absent. The visualized pancreas is normal but significant portions are obscured by bowel gas. No splenomegaly. No ascites. Limited survey images of both kidneys show normal cortical thickness and echogenicity with no pelvocaliectasis. Visualized aorta and IVC are normal but portions of these vessels are obscured by bowel gas also. IMPRESSION: Evidence of diffuse hepatocellular disease with nodular appearance of the liver. This would be compatible with cirrhosis. No splenomegaly or ascites. Interpreted by: Pedro Day MD Preliminary Report By: Pedro Day MD Electronically signed By Pedro Day MD Dictated Date: 04/16/2022 1:31:35 PM Prelim Date: 04/16/2022 1:33:11 PM Sign Date: 04/16/2022 1:33:11 PM [facility] Evaluation + Plan note Note Date & Type Note Facility Evaluation + Plan note No data available for this section [facility] Hospital Discharge instructions Note Date & Type Note Facility Hospital Discharge instructions No data available for this section [facility] Progress note Note Date & Type Note Facility Progress note No data available for this section [facility] Summary Purpose Family History No Family History Records Found No data available for this section No Family History Records Found Advance Directives No Advanced Directives Records FoundNo Advanced Directives Records Found Additional Source Comments (unrecognized sect ion and content) No Status Records FoundNo Status Records Found INFORMATION SOURCE (unrecogn ized section and content) DATE CREATED AUTHOR AUTHOR'S ORGANIZ ATION 12/29/2022 [facility] ([place]) Care Team (unrecognized sect ion and content) Care Team Personnel Name: KAREN RUBALCAVA MD Member Role: Primary Care Physician Address: Address: [address] [place] [id number]- Care Team Related Persons Name: KENYA STILES Address: Home [address] [place] [address] Care Team Personnel Name: KAREN RUBALCAVA MD Member Role: Primary Care Physician Address: Address: [address] [place] [address] Care Team Related Persons Name: KENYA STILES Address: Home [address] [place] [address] Care Team Personnel Name: KAREN RUBALCAVA MD Member Role: Primary Care Physician Address: Address: [address] [place] [address] Care Team Related Persons Name: KENYA STILES Address: Home [address] [place] [address] Patient Care team informatio n (unrecognized section and content) Care Team Personnel Name: KAREN RUBALCAVA MD Member Role: Primary Care Physician Address: Address: [address] [place] [address] Care Team Related Persons Name: KENYA STILES Address: Home [address] [place] [address] FOR RECORDS PERTAINING TO PATIENTS WHO ARE OR HAVE BEEN ENROLLED IN A CHEMICAL DEPENDENCY/SUBSTANCEABUSE PROGRAM, SOME INFORMATION MAY BE OMITTED. This clinical summary was aggregated from multiple sources. Caution should be exercised in using it in the provision of clinical care. This summary normalizes information from multiple sources, and as a consequence, information in this document may materially change the coding, format and clinical context of patient data. In addition, data may be omitted in some cases. CLINICAL DECISIONS SHOULD BE BASED ON THE PRIMARY CLINICAL RECORDS. [employer] provides no warranty or guarantee of the accuracy or completeness of information in this document.
[2023-03-08 13:40] LABS: Color, Urine Yellow (Yellow); Glucose, Dipstick Normal (Normal); Ketone-Dipstick Negative (Negative); Leukocyte Esterase-Dipstick 25 /ul (Negative); Nitrite-Dipstick Negative (Negative); Occult Blood-Urine Negative /ul (Negative); Protein-Dipstick 30 mg/dl (Negative); Specific Gravity, Urine 1.015 (1.002-1.030); Urine Bilirubin Dipstick Negative (Negative); Urine Clarity Clear (Clear); Urine Urobilinogen 1 mg/dl (Normal)
[2023-03-08 13:41] LABS: Absolute Lymphocyte Count 3.95 X10^3/uL (0.83-4.51); Absolute Neutrophil Count 5.4 X10^3/uL (2.0-7.7); Basophil# 0.03 X10^3/uL; Basophil% 0.3 % (0-1); Eosinophil# 0.14 X10^3/uL; Eosinophils% 1.4 % (0-5); Hematocrit 40.9 % (40-54); Hemoglobin 12.7 g/dL (13.0-16.5); Lymphocyte # 3.95 X10^3/ul (0.83-4.51); Lymphocyte % 38.3 % (19-41); Mean Corp Hgb Conc 31.1 g/dL (32-36); Mean Corpuscular Hgb 30.1 pg (27.0-32.0); Mean Corpuscular Volume 96.9 fL (80-94); Mean Platelet Vol. 10.4 fl (6.2-12.0); Monocyte# 0.73 X10^3/uL; Monocyte% 7.1 % (0-10); NRBC Flagged by Analyzer 0 % (0-5); Neutrophil # 5.43 X10^3/uL (2.7-7.7); Neutrophil % 52.6 % (47-70); Platelet Count 213 K/mm3 (150-450); RBC Distribution Width CV 13.9 % (11.6-14.6); RBC Distribution Width SD 49.1 fl (35.1-43.9); Red Blood Count 4.22 M/mm3 (4.6-6.2); White Blood Count 10.3 K/mm3 (4.4-11.0)
[2023-03-08 14:13] LABS: Anion Gap 3 (5-15); BUN 29 mg/dL (7-18); BUN/Creat Ratio 20.6 RATIO (10-20); Calcium,Total 9.1 mg/dL (8.5-10.1); Chloride 112 mmol/L (98-107); Creatinine, Serum 1.41 mg/dL (0.70-1.30); EST Glomerular Filtration Rate 51 mL/min (>60); Est Glom Filt Rate - Afr Amer 61 mL/min (>60); Glucose 120 mg/dL (74-106); Potassium 4.1 mmol/L (3.5-5.1); Sodium Level 143 mmol/L (136-145)
== END | disposition home or self-care (01) ==
LOC: RAD 12:52
PROVIDERS: Physician Assistant Medical; PCP Family Medicine; Referring Provider Family Medicine; Visit Provider Family Medicine
DX: M54.9 Dorsalgia, unspecified (principal); N17.9 Acute kidney failure, unspecified
CPT/HCPCS: 36415; 71046; 80048; 81002; 85025

== ENCOUNTER → 2023-08-07 | Outpatient (CLI) | payer BC, MEDICARE, SELFPAY ==
[2023-08-07 12:42] LABS: Absolute Neutrophil Count 5.3 X10^3/uL (2.0-7.7); Basophil# 0.03 X10^3/uL; Basophil% 0.3 % (0-1); Eosinophil# 0.18 X10^3/uL; Eosinophils% 1.9 % (0-5); Hematocrit 40.5 % (40-54); Hemoglobin 12.8 g/dL (13.0-16.5); Lymphocyte % 32.3 % (19-41); Mean Corp Hgb Conc 31.6 g/dL (32-36); Mean Corpuscular Hgb 30.6 pg (27.0-32.0); Mean Corpuscular Volume 96.9 fL (80-94); Mean Platelet Vol. 10.9 fl (6.2-12.0); Monocyte# 0.78 X10^3/uL; Monocyte% 8.4 % (0-10); NRBC Flagged by Analyzer 0 % (0-5); Neutrophil # 5.28 X10^3/uL (2.7-7.7); Neutrophil % 56.8 % (47-70); Platelet Count 178 K/mm3 (150-450); RBC Distribution Width CV 13.9 % (11.6-14.6); RBC Distribution Width SD 49.9 fl (35.1-43.9); Red Blood Count 4.18 M/mm3 (4.6-6.2); White Blood Count 9.3 K/mm3 (4.4-11.0)
[2023-08-07 13:22] LABS: Anion Gap 7 (5-15); BUN 37 mg/dL (7-18); BUN/Creat Ratio 25.3 RATIO (10-20); Calcium,Total 9.1 mg/dL (8.5-10.1); Chloride 111 mmol/L (98-107); Creatinine, Serum 1.46 mg/dL (0.70-1.30); EST Glomerular Filtration Rate 49 mL/min (>60); Est Glom Filt Rate - Afr Amer 59 mL/min (>60); Glucose 99 mg/dL (74-106); Magnesium 1.9 mg/dL (1.6-2.6); Sodium Level 141 mmol/L (136-145)
[2023-08-07 15:10] LABS: BNP,B-Type NATRIURETIC PEPTIDE 577.4 pg/mL (0-100)
== END | disposition home or self-care (01) ==
LOC: BFHLAB 08:08
PROVIDERS: PCP Family Medicine; Referring Provider Family Medicine; Visit Provider Family Medicine
DX: R60.0 Localized edema (principal); I10 Essential (primary) hypertension
CPT/HCPCS: 36415; 80048; 83735; 83880; 85025

== ENCOUNTER → 2023-09-11 | Outpatient (CLI) | payer BC, MEDICARE, SELFPAY ==
[2023-09-11 08:34] LABS: AST(SGOT) 19 U/L (15-37); Alanine Aminotransfer ALT/SGPT 21 U/L (16-61); Albumin, Serum 3.2 g/dL (3.2-5.0); Alkaline Phosphatase 93 U/L (45-117); Bilirubin, Direct 0.22 mg/dL (0.00-0.30); Cholesterol 99 mg/dL (200); Globulin 3.3 g/dL (2.2-4.2); High Density Lipoprotein 43 mg/dL; Protein, Total 6.5 g/dL (6.4-8.2); Triglycerides 85 mg/dL; Very Low Density Lipoprotein 17 mg/dL (5-40)
== END | disposition home or self-care (01) ==
LOC: LAB 07:28
PROVIDERS: PCP Family Medicine; Referring Provider Internal Medicine Cardiovascular Disease; Visit Provider Internal Medicine Cardiovascular Disease
DX: I25.10 Atherosclerotic heart disease of native coronary artery without angina pectoris (principal)
CPT/HCPCS: 36415; 80061; 80076

== ENCOUNTER → 2024-03-17 | Outpatient (CLI) | payer MEDICARE, SELFPAY ==
[2024-03-17 12:07] LABS: AST(SGOT) 20 U/L (15-37); Alanine Aminotransfer ALT/SGPT 23 U/L (16-61); Albumin, Serum 3.2 g/dL (3.2-5.0); Alkaline Phosphatase 90 U/L (45-117); Bilirubin, Direct 0.19 mg/dL (0.00-0.30); Cholesterol 104 mg/dL (200); Globulin 3.3 g/dL (2.2-4.2); High Density Lipoprotein 44 mg/dL; Protein, Total 6.5 g/dL (6.4-8.2); Triglycerides 116 mg/dL; Very Low Density Lipoprotein 23 mg/dL (5-40)
== END | disposition home or self-care (01) ==
LOC: LAB 11:09
PROVIDERS: PCP Family Medicine; Referring Provider Physician Assistant Medical; Visit Provider Physician Assistant Medical
DX: I25.10 Atherosclerotic heart disease of native coronary artery without angina pectoris (principal)
CPT/HCPCS: 36415; 80061; 80076

== ENCOUNTER → 2024-04-03 | Outpatient (CLI) | payer MEDICARE, SELFPAY ==
[2024-04-03 14:27] LABS: Absolute Neutrophil Count 4.8 X10^3/uL (2.0-7.7); Basophil# 0.02 X10^3/uL; Basophil% 0.2 % (0-1); Eosinophil# 0.14 X10^3/uL; Eosinophils% 1.4 % (0-5); Hematocrit 39.4 % (40-54); Hemoglobin 13.1 g/dL (13.0-16.5); Lymphocyte % 40.2 % (19-41); Mean Corp Hgb Conc 33.2 g/dL (32-36); Mean Corpuscular Hgb 31.1 pg (27.0-32.0); Mean Corpuscular Volume 93.6 fL (80-94); Mean Platelet Vol. 10.1 fl (6.2-12.0); Monocyte# 0.84 X10^3/uL; Monocyte% 8.7 % (0-10); NRBC Flagged by Analyzer 0 % (0-5); Neutrophil # 4.76 X10^3/uL (2.7-7.7); Neutrophil % 49.2 % (47-70); Platelet Count 173 K/mm3 (150-450); RBC Distribution Width CV 14.2 % (11.6-14.6); RBC Distribution Width SD 48.7 fl (35.1-43.9); Red Blood Count 4.21 M/mm3 (4.6-6.2); White Blood Count 9.7 K/mm3 (4.4-11.0)
[2024-04-03 15:01] LABS: AST(SGOT) 18 U/L (15-37); Alanine Aminotransfer ALT/SGPT 30 U/L (16-61); Albumin, Serum 3.2 g/dL (3.2-5.0); Alkaline Phosphatase 84 U/L (45-117); Anion Gap 3 (5-15); BUN 28 mg/dL (7-18); BUN/Creat Ratio 19.7 RATIO (10-20); Calcium,Total 8.9 mg/dL (8.5-10.1); Chloride 113 mmol/L (98-107); Creatinine, Serum 1.42 mg/dL (0.70-1.30); EST Glomerular Filtration Rate 50 mL/min (>60); Est Glom Filt Rate - Afr Amer 61 mL/min (>60); Globulin 3.2 g/dL (2.2-4.2); Glucose 99 mg/dL (74-106); Potassium 4.4 mmol/L (3.5-5.1); Protein, Total 6.4 g/dL (6.4-8.2); Sodium Level 144 mmol/L (136-145)
== END | disposition home or self-care (01) ==
LOC: LAB 14:03
PROVIDERS: PCP Family Medicine; Referring Provider Family Medicine; Visit Provider Family Medicine
DX: I10 Essential (primary) hypertension (principal)
CPT/HCPCS: 36415; 80053; 85025

== ENCOUNTER → 2024-11-07 | Outpatient (CLI) | payer MEDICARE, SELFPAY ==
--- OUTSIDE RECORDS SUMMARY | 2024-11-07 07:21 | XMS RPT_ITS | CCD ---
Author Organization [facility]iniSyn[facility] Care Team Providers Care Inside Upholsterer Name Role Phone TIMA FUNK Unavailable Unavailab SAMIR Leyva MD Primary Care Physician Dr. Samir Abdi Primary Care Provider Dr. Augusto Burns Attending Provider [phone] Samir Abdi Referring Provider CHRISTINA Delgado Attending Provider Dr. Samir Abdi Primary Care Provider Dr. Samir Abdi Referring Provider CHRISTINA Delgado Attending Provider Dr. Bernice Aquino Primary Care Provider Dr. Maciel Garcia Emergency Provider Dr. Kevin Delacruz Admit Provider [phone] Kevin Delacruz Attending Provider Dr. Kevin Delacruz Other Provider [phone] Dr. Augusto Burns Attending Provider Dr. Palak Reyes Attending Provider Dr. Palak Reyes Other Provider Dr. Kevin Delacruz Referring Provider MD HARMONY DAVID MD Attending Unavailable BERNICE AQUINO Consulting Unavailable SAMIR ABDI MD Primary Care Unavailable SAMIR ABDI MD Consulting Unavailable MD HARMONY DAVID MD Attending Unavailable SAMIR ABDI MD Primary Care Unavailable MD HARMONY DAVID MD Attending Unavailable SAMIR ABDI MD Primary Care Unavailable Edwina Delgado Attending Unavail able Edwina Delgado Referring Unavail able Miedel, Bernice Primary Care Unavailable Edwina Delgado Attending Unavail able Miedel, Bernice Referring Unavailable Miedel, Bernice Primary Care Unavailable Miedel, Bernice Primary Care Unavailable Carroll Ferrer Attending Unavailable Farzanehedel, Bernice Referring Unavailable Miedel, Bernice Primary Care Unavailable Carroll Ferrer Attending Unavailable Carroll Ferrer Referring Unavailable Miedel, Bernice Primary Care Unavailable Marely Aquinoh Attending Unavailable Miedel, Bernice Referring Unavailable Farzanehedel Bernice Attending Unavailable Miedel, Bernice Referring Unavailable Miedel, Bernice Primary Care Unavailable Medications Current Medications Medication Drug Class(es) Dates Sig (Normalized) Sig (Original) aspirin 81 mg chewable tablet (8 sources) Platelet Aggregation Inhibitor, Nonsteroidal Anti-inflammatory Drug Start: 08-30-2014 take 81 mg by mouth once daily Aspirin Active 81 MG PO DAILY@0800 August 29, 2014 11:00pm atorvastatin 80 mg oral tablet (20 sources) HMG-CoA Reductase Inhibitor Start: 12-07-2019 End: 11-21-2020 take 80 mg by mouth at bedtime Atorvastatin Active 80 MG PO AT BEDTIME November 21, 2020 8:26am Start: 06-13-2017 End: 06-13-2017 take 10 mg by mouth at bedtime Atorvastatin Discontinu ed 10 MG PO AT BEDTIME June 12, 2017 11:00pm June 13, 2017 10:11am Start: 09-04-2013 End: 06-13-2017 take 80 mg by mouth at bedtime Atorvastatin Discontinu ed 80 MG PO AT BEDTIME September 03, 2013 11:00pm June 13, 2017 10:06am cholecalciferol 0.125 mg oral capsule (16 sources) Vitamin D Start: 09-09-2020 take 125 ug by mouth once daily Cholecalciferol (Vitamin D3) Active 125 MCG PO DAILY September 08, 2020 11:00pm Start: 08-07-2018 End: 12-29-2018 take 5000 [IU] by mouth once daily Cholecalciferol (Vitamin D3) Discontinued 5000 UNIT PO DAILY August 06, 2018 11:00pm December 29, 2018 1:19pm losartan potassium 50 mg oral tablet (2 sources) Angiotensin 2 Receptor Cris Start: 02-15-2023 take 50 mg by mouth once daily Losartan Active 50 MG PO DAILY February 15, 2023 12:00am Urfvrsgg-Yei-Dz-Ly copen-Lutein (8 sources) Start: 09-04-2013 Gfwkbrpt-Qwj-R a- Lycopen-Lutein Active 1 EACH PO DAILY September 03, 2013 11:00pm Start: 09-04-2013 Wfxzudou-Pcu-S z-Xcwiops-Wjvbqf Active 1 EACH PO DAILY September 04, 2013 12:00am pantoprazole 20 mg delayed release oral tablet (8 sources) Proton Pump Inhibitor Start: 03-31-2021 take 20 mg by mouth once daily Pantoprazole Active 20 MG PO DAILY March 31, 2021 12:00am potassium gluconate 2.5 meq oral tablet (16 sources) Start: 12-07-2019 take 1 tablet by mouth once daily potassium gluconate 600 mg (99 mg) tablet Active 600 MG PO DAILY December 06, 2019 11:00pm Start: 08-07-2018 End: 12-29-2018 take 0.5 tablet by mouth two times weekly Potassium Discontinued 99 MG PO .COMPLEX August 06, 2018 11:00pm December 29, 2018 1:19pm 99 mg PO 1/2 tablet twice weekly for leg cramps; ursodiol 500 mg oral tablet (8 sources) Bile Acid Start: 08-07-2018 take 500 mg by mouth twice daily Ursodiol Active 500 MG PO TWICE A DAY August 06, 2018 11:00pm Completed/Discontinued Medications Medication Drug Class(es) Dates Sig (Normalized) Sig (Original) acetaminophen 325 mg / oxyCODONE hydrochloride 5 mg oral tablet (8 sources) Opioid Agonist Start: 01-10-2016 End: 06-13-2017 take 1 tablet by mouth every four hours as needed Oxycodone-Acetami nophen Discontinued 1 - 2 TABLET PO EVERY 4 HOURS NEEDED January 09, 2016 11:00pm June 13, 2017 10:07am amLODIPine 5 mg oral tablet (20 sources) Dihydropyridine Calcium Channel Cris Start: 08-30-2014 End: 02-06-2023 take 5 mg by mouth once daily Amlodipine Discontinued 5 MG PO daily November 05, 2022 7:09am February 06, 2023 2:55pm clopidogrel 75 mg oral tablet (8 sources) P2Y12 Platelet Inhibitor Start: 12-22-2019 End: 12-25-2019 take 2 tablets by mouth once daily Clopidogrel (Plavix) 75 mg tablet Discontinued 75 MG PO daily December 21, 2019 11:00pm December 25, 2019 10:22am 300 mg (4 pills) on day 1 and 75mg (1 pill) daily on day two finasteride 5 mg oral tablet (8 sources) 5-alpha Reductase Inhibitor Start: 09-04-2013 End: 09-09-2020 take 5 mg by mouth once daily Finasteride Discontinued 5 MG PO DAILY September 03, 2013 11:00pm September 09, 2020 8:00am furosemide 40 mg oral tablet (20 sources) Loop Diuretic Start: 12-16-2019 End: 01-01-2020 take 1 tablet by mouth once daily Furosemide (Lasix) 40 mg tablet Discontinued 40 MG PO DAILY 60 December 16, 2019 9:03am January 01, 2020 7:41am Start: 12-11-2019 End: 12-16-2019 take 1 tablet by mouth twice daily Furosemide (Lasix) 40 mg tablet Discontinued 40 MG PO TWICE A DAY 60 December 11, 2019 12:28pm December 16, 2019 9:05am Start: 12-07-2019 End: 12-11-2019 take 1 tablet by mouth once daily Furosemide (Lasix) 40 mg tablet Discontinued 40 MG PO DAILY December 06, 2019 11:00pm December 11, 2019 12:30pm Handicap Placard (7 sources) Start: 10-05-[address] Active 0 .Route .MEDSUPPLY October 04, 2021 11:00pm Expires: 5 years Dx: debility Start: 10-05-[address] Active 0 .Route .MEDSUPPLY October 05, 2021 12:00am Expires: 5 years Dx: debility hydroCHLOROthiazide 12.5 mg / losartan potassium 50 mg oral tablet (20 sources) Thiazide Diuretic, Angiotensin 2 Receptor Cris Start: 04-14-2019 End: 02-15-2023 Losartan-Hydrochlorothiazide Discontinued 0 .ROUTE .COMPLEX 90 February 19, 2022 11:23am February 15, 2023 1:33pm On Hold: Resume on 02/20/23. Would discuss with your primary care physician optimal timing for resuming this TAKE 1 TABLET DAILY Start: 04-29-2018 End: 12-29-2018 take 1 tablet by mouth once daily Losartan-Hydrochlorothiazide Discontinue d 1 TABLET PO DAILY April 29, 2018 12:00am December 29, 2018 1:19pm hydroCHLOROthiazide 25 mg / olmesartan medoxomil 40 mg oral tablet (20 sources) Thiazide Diuretic, Angiotensin 2 Receptor Cris Start: 12-29-2018 End: 04-14-2019 take 1 tablet by mouth once daily Olmesartan-Hydrochlorothiazide (Benicar Hct) 40-25 mg tablet Discontinued 1 TABLET PO DAILY December 28, 2018 11:00pm April 14, 2019 10:57am Start: 06-13-2017 End: 04-29-2018 take 1 tablet by mouth once daily Olmesartan-Hydrochlorothiazide (Benicar Hct) 40-12.5 mg tablet Discontinued 1 TABLET PO daily June 12, 2017 11:00pm April 29, 2018 4:37pm Start: 01-09-2016 End: 06-13-2017 take 1 tablet by mouth at bedtime Olmesartan-Hydrochlorothiazide Discontin ued 1 TABLET PO AT BEDTIME January 08, 2016 11:00pm June 13, 2017 10:11am 24 hr isosorbide mononitrate 60 mg extended release oral tablet (20 sources) Nitrate Vasodilator Start: 01-27-2020 End: 03-30-2022 take 60 mg by mouth once daily in the morning Isosorbide Mononitrate Discontinued 60 MG PO EVERY MORNING January 17, 2021 10:27am March 30, 2022 8:24am Start: 01-01-2020 End: 01-27-2020 take 2 tablets by mouth once daily in the morning Isosorbide Mononitrate Discontinued 60 MG PO EVERY MORNING January 01, 2020 7:41am January 27, 2020 11:07am 2 tabs qam Start: 12-25-2019 End: 01-01-2020 take 60 mg by mouth once daily in the morning Isosorbide Mononitrate Discontinued 60 MG PO EVERY MORNING December 25, 2019 10:23am January 01, 2020 7:42am Start: 12-16-2019 End: 12-25-2019 take 30 mg by mouth once daily Isosorbide Mononitrate Discontinued 30 MG PO DAILY December 16, 2019 9:05am December 25, 2019 10:23am levothyroxine sodium 0.025 mg oral tablet (8 sources) l-Thyroxine Start: 12-29-2018 End: 02-06-2023 take 25 ug by mouth once daily Levothyroxine Discontinued 25 MCG PO DAILY December 28, 2018 11:00pm February 06, 2023 2:50pm metoprolol tartrate 50 mg oral tablet (20 sources) beta-Adrenergic Cris Start: 06-13-2017 End: 07-19-2022 take 50 mg by mouth twice daily Metoprolol Tartrate Discontinued 50 MG PO TWICE A DAY 180 July 31, 2021 1:44pm July 19, 2022 12:48pm Start: 09-04-2013 End: 06-13-2017 take 25 mg by mouth twice daily Metoprolol Tartrate Discontinued 25 MG PO TWICE A DAY September 03, 2013 11:00pm June 13, 2017 10:06am omeprazole 40 mg delayed release oral capsule (8 sources) Proton Pump Inhibitor Start: 12-07-2019 End: 03-31-2021 take 40 mg by mouth once daily Omeprazole Discontinued 40 MG PO DAILY December 06, 2019 11:00pm March 31, 2021 10:29am Problems Active Problems Problem Classification Problem Date Documented Da te Episodic/Chronic Acute and unspecified renal failure (8 sources) Acute renal failure syndrome; Translations: [Acute kidney failure, unspecified] 02-06-2023 Episodic Cardiac dysrhythmias (11 sources) Paroxysmal atrial fibrillation; Translations: [Paroxysmal atrial fibrillation] Onset: 10-11-2023 Chronic Conditions associated with dizziness or vertigo (8 sources) Dizziness; Translations: [Dizziness and giddiness] 02-06-2023 Episodic Coronary atherosclerosis and other heart disease (20 sources) Coronary arteriosclerosis; Translations: [Atherosclerotic heart disease of [place] coronary artery without angina pectoris] Onset: 10-11-2023 Chronic Coronary atherosclerosis and other heart disease (2 sources) Presence of aortocoronary bypass graft; Translations: [Aortocoronary bypass status] Episodic Disorders of lipid metabolism (10 sources) Hyperlipidemia; Translations: [Hyperlipidemia, unspecified] Chronic Esophageal disorders (4 sources) Gastro-esophageal reflux disease without esophagitis; Translations: [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] Onset: 11-26-2022 Chronic Essential hypertension (11 sources) Essential hypertension; Translations: [Essential (primary) hypertension] Onset: 04-23-2024 Chronic Fluid and electrolyte disorders (8 sources) Dehydration; Translations: [Dehydration] 02-06-2023 Episodic Heart valve disorders (18 sources) Mitral valve prolapse; Translations: [Nonrheumatic mitral (valve) prolapse] Chronic Nausea and vomiting (8 sources) Nausea and vomiting; Translations: [Nausea with vomiting, unspecified] 12-25-2019 Episodic Occlusion or stenosis of precerebral arteries (8 sources) Carotid artery stenosis; Translations: [Occlusion and stenosis of unspecified carotid artery] 01-20-2018 Chronic Other gastrointestinal disorders (8 sources) Abdominal bloating; Translations: [Abdominal distension (gaseous)] 12-25-2019 Episodic Other gastrointestinal disorders (4 sources) Diarrhea; Translations: [Diarrhea, unspecified] 02-06-2023 Episodic Other gastrointestinal disorders (4 sources) Diarrhea, unspecified; Translations: [Diarrhea] 02-06-2023 Episodic Other screening for suspected conditions (not mental disorders or infectious disease) (8 sources) Cardiovascular stress test abnormal; Translations: [Abnormal result of other cardiovascular function study] 12-25-2019 Episodic Pulmonary heart disease (10 sources) Pulmonary arterial hypertension; Translations: [Secondary pulmonary arterial hypertension] Chronic Past or Other Problems Problem Classification Problem Date Documented Da te Episodic/Chronic Residual codes; unclassified (1 source) Localized edema; Translations: [Localized edema] Onset: 08-14-2023 Episodic Results Test Name Value Interpretation Reference Range Facility CBC W/Diff, Automatedon 03-12 Absolute Lymph 3.90 X10 3/uL Normal 0.83-4.51 [facility] Comment on above: Performed By: #### L 500.4050, L100.0100 #### [facility] [address] [place], [address] Absolute Neut 4.8 X10 3/uL Normal 2.0-7.7 [facility] Comment on above: Performed By: #### L 500.4050, L100.0100 #### [facility] [address] [place], [address] Basophils/100 WBC (Bld) 0.2 % Normal 0-1 [facility] Comment on above: Performed By: #### L 500.4050, L100.0100 #### [facility] [address] [place], [address] Eosinophils/100 WBC (Bld) 1.4 % Normal 0-5 [facility] Comment on above: Performed By: #### L 500.4050, L100.0100 #### [facility] [address] [place], [address] Erythrocyte distribution width (RBC) [Ratio] 14.2 % Normal 11.6-14.6 [facility] Comment on above: Performed By: #### L 500.4050, L100.0100 #### [facility] [address] [place], [address] Hematocrit (Bld) [Volume fraction] 39.4 % Low 40-54 [facility] Comment on above: Performed By: #### L 500.4050, L100.0100 #### [facility] [address] [place], [address] Hemoglobin (Bld) [Mass/Vol] 13.1 g/dL Normal 13.0-16.5 [facility] Comment on above: Performed By: #### L 500.4050, L100.0100 #### [facility] [address] [place], [address] IG% 0.300 Normal 0.0-0.9 [facility] Comment on above: Result Comment: IG% - Immature Granulocytes (promyelocytes, myelocytes and metamyelocytes) > 1% indicates that a LEFT SHIFT is Present. Performed By: #### L 500.4050, L100.0100 #### [facility] [address] [place], [address] Lymphocytes/100 WBC (Bld) 40.2 % Normal 19-41 [facility] Comment on above: Performed By: #### L 500.4050, L100.0100 #### [facility] [address] [place], [address] MCH (RBC) [Entitic mass] 31.1 pg Normal 27.0-32.0 [facility] Comment on above: Performed By: #### L 500.4050, L100.0100 #### [facility] [address] [place], [address] MCHC (RBC) [Mass/Vol] 33.2 g/dL Normal 32-36 [facility] Comment on above: Performed By: #### L 500.4050, L100.0100 #### [facility] [address] [place], [address] MCV (RBC) [Entitic vol] 93.6 fL Normal 80-94 [facility] Comment on above: Performed By: #### L 500.4050, L100.0100 #### [facility] [address] [place], [address] Monocytes/100 WBC (Bld) 8.7 % Normal 0-10 [facility] Comment on above: Performed By: #### L 500.4050, L100.0100 #### [facility] [address] [place], [address] Neutrophils/100 WBC (Bld) 49.2 % Normal 47-70 [facility] Comment on above: Performed By: #### L 500.4050, L100.0100 #### [facility] [address] [place], [address] Nucleated RBC (Bld) [#/Vol] 0 10*3/uL Normal 0-5 [facility] Comment on above: Performed By: #### L 500.4050, L100.0100 #### [facility] [address] [place], [address] Platelet mean volume (Bld) [Entitic vol] 10.1 fL Normal 6.2-12.0 [facility] Comment on above: Performed By: #### L 500.4050, L100.0100 #### [facility] [address] [place], [address] Platelets (Bld) [#/Vol] 173 10*3/uL Normal 150-450 [facility] Comment on above: Performed By: #### L 500.4050, L100.0100 #### [facility] [address] [place], [address] RBC (Bld) [#/Vol] 4.21 10*6/uL Low 4.6-6.2 [facility] Comment on above: Performed By: #### L 500.4050, L100.0100 #### [facility] [address] [place], [address] RDW SD 48.7 fl High 35.1-43.9 [facility] Comment on above: Performed By: #### L 500.4050, L100.0100 #### [facility] [address] [place], [address] WBC (Bld) [#/Vol] 9.7 10*3/uL Normal 4.4-11.0 [facility] Comment on above: Performed By: #### L 500.4050, L100.0100 #### [facility] [address] [place], [address] Comprehensive Metabolic [facility] 04-03-2024 Albumin [Mass/Vol] 3.2 g/dL Normal 3.2-5.0 [facility] Comment on above: Performed By: #### L 500.4050, L100.0100 #### [facility] [address] [place], [address] Albumin/Globulin [Mass ratio] 1.0 {ratio} Normal 0.9-2.4 [facility] Comment on above: Performed By: #### L 500.4050, L100.0100 #### [facility] [address] [place], [address] ALK P 84 U/L Normal 45-117 [facility] Comment on above: Performed By: #### L 500.4050, L100.0100 #### [facility] [address] [place], [address] ALT [Catalytic activity/Vol] 30 U/L Normal 16-61 [facility] Comment on above: Performed By: #### L 500.4050, L100.0100 #### [facility] [address] [place], [address] AST [Catalytic activity/Vol] 18 U/L Normal 15-37 [facility] Comment on above: Performed By: #### L 500.4050, L100.0100 #### [facility] [address] [place], [address] Bilirubin [Mass/Vol] 0.70 mg/dL Normal 0.20-1.00 [facility] Comment on above: Result Comment: For patients on eltrombopag therapy, use of Dimension Hospers TBIL is not recommended. Performed By: #### L 500.4050, L100.0100 #### [facility] [address] [place], [address] BUN/CRE 19.7 RATIO Normal 10-20 [facility] Comment on above: Performed By: #### L 500.4050, L100.0100 #### [facility] [address] [place], [address] CA,Total 8.9 mg/dL Normal 8.5-10.1 [facility] Comment on above: Performed By: #### L 500.4050, L100.0100 #### [facility] [address] [place], [address] Chloride [Moles/Vol] 113 mmol/L High 98-107 [facility] Comment on above: Performed By: #### L 500.4050, L100.0100 #### [facility] [address] [place], [address] CO2 [Moles/Vol] 28.0 mmol/L Normal 21.0-32.0 [facility] Comment on above: Performed By: #### L 500.4050, L100.0100 #### [facility] [address] [place], [address] Creatinine [Mass/Vol] 1.42 mg/dL High 0.70-1.30 [facility] Comment on above: Result Comment: The validity of the calculated GFR GFRAA in patients over 70 years has not been determined. Clinical correlation is essential. Performed By: #### L 500.4050, L100.0100 #### [facility] [address] [place], [address] EST GFR - AA 61 mL/min Normal >60 [facility] Comment on above: Result Comment: Afri can [place] GFR Calc Performed By: #### L 500.4050, L100.0100 #### [facility] [address] [place], [address] GAP 3 Low 5-15 [facility] Comment on above: Performed By: #### L 500.4050, L100.0100 #### [facility] [address] [place], [address] GFR/1.73 sq M.predicted among non-blacks MDRD (S/P/Bld) [Vol rate/Area] 50 mL/min/{1.73_m2} Low >60 [facility] Comment on above: Result Comment: Non- GFR Calc Performed By: #### L 500.4050, L100.0100 #### [facility] [address] [place], [address] Globulin (S) [Mass/Vol] 3.2 g/dL Normal 2.2-4.2 [facility] Comment on above: Performed By: #### L 500.4050, L100.0100 #### [facility] [address] [place], [address] Glucose [Mass/Vol] 99 mg/dL Normal 74-106 [facility] Comment on above: Performed By: #### L 500.4050, L100.0100 #### [facility] [address] [place], [address] Potassium [Moles/Vol] 4.4 mmol/L Normal 3.5-5.1 [facility] Comment on above: Performed By: #### L 500.4050, L100.0100 #### [facility] [address] [place], [address] Sodium [Moles/Vol] 144 mmol/L Normal 136-145 [facility] Comment on above: Performed By: #### L 500.4050, L100.0100 #### [facility] [address] [place], [address] T PROT 6.4 g/dL Normal 6.4-8.2 [facility] Comment on above: Performed By: #### L 500.4050, L100.0100 #### [facility] [address] [place], [address] Urea nitrogen [Mass/Vol] 28 mg/dL High 7-18 [facility] Comment on above: Performed By: #### L 500.4050, L100.0100 #### [facility] [address] [place], [address] Cardiology Visit Reporton Cardiology Visit Report [facility] [address] [place] [address] OFFICE VISIT Date of Service: 03/17/24 MR#: [id number] Acct: [id number] Name: SHELDON JOHNSON Rep #: [id number] : 1935 Provider: CHRISTINA Dawn Age/Sex: 88/M [place] [facility] [place] Status: Signed HPI HPI History of Present Illness Details: Sheldon Johnson is an 88-year-old white male who presents today for outpatient cardiovascular follow- up with a history of underlying CAD, CABG, recovered ischemic cardiomyopathy, PAF, mitral valve prolapse/insufficiency, pulmonary hypertension, hyperlipidemia, and hypertension??? The patient's original presentation prior to his bypass graft surgery in 2001 was profound dyspnea on exertion and inability to walk more than a few feet. He underwent bypass graft surgery at [place] March 2001. He had a repeat catheterization December 2019 the ostial LAD was subtotally obstructed the mid LAD fills via antegrade flow and via flow from the BLUE graft with no significant distal disease. The first diagonal branch was totally occluded and filled via a vein graft. The ostial circumflex was severely calcified and subtotally obstructed. The right coronary artery was occluded proximally the vein graft to the right posterior descending artery was patent with a 50% stenosis in the sequential segment to the right posterolateral branch. The right posterolateral branch was occluded. The saphenous vein graft and the circumflex arising off of the vein graft from the diagonal was occluded. Echocardiogram done January 2023 showed that the LV ejection fraction had recovered from 40% up to 50%. There continues to be segmental wall motion abnormalities. From a cardiac standpoint he is doing well. Intake Vital Signs 09/10/23 10:23 03/17/24 10:23 03/17/24 11:00 Height 5 ft 10 in 5 ft 10 in Weight: 161 lb 164 lb BMI 23.1 23.5 BP 146/68 H 160/73 H 136/64 H Blood Pressure Location Lt brachial Lt brachial Position Sitting Sitting Respiration 18 16 Pulse 60 57 L Pulse Source Monitor Monitor Pulse Oximetry (%) 97 99 Oxygen Delivery Method room air room air Intake Visit Reasons: 6 M FU Loin Trimmer Required: No Accompanied by: Self Is patient in pain?: No Allergies No Known Allergies Allergy (Verified 03/17/24 10:30) Medications ???Medication ???Instructions ???Recorded ???Confirmed ???Type ixbboaue-uml-lhimx acid 0.4 1 ea PO DAILY supplement 09/04/13 03/17/24 History mg-lycopene 300 mcg-lutein 250 mcg tablet aspirin 81 mg chewable tablet 81 mg PO DAILY@0800 prevention 08/30/14 03/17/24 History ursodiol 500 mg tablet 500 mg PO BID bladder 08/07/18 03/17/24 History potassium gluconate 600 mg (99 mg) 600 mg PO DAILY supplement 12/07/19 03/17/24 History tablet atorvastatin 80 mg tablet 80 mg PO QHS cholestrol #90 tabs 11/21/20 03/17/24 Rx pantoprazole 20 mg tablet,delayed 20 mg PO DAILY decrease acid 03/31/21 03/17/24 History release Handicap Placard #1 ea 10/05/21 05/10/22 Rx cholecalciferol (vitamin D3) 25 25 mcg PO DAILY 04/08/23 03/17/24 History mcg (1,000 unit) tablet amlodipine 5 mg tablet 5 mg PO DAILY blood pressure #90 12/11/23 03/17/24 Rx tabs isosorbide mononitrate 60 mg 60 mg PO QAM heart #90 tabs 12/11/23 03/17/24 Rx tablet,extended release 24 hr losartan 50 mg tablet 50 mg PO DAILY #90 tabs 12/11/23 03/17/24 Rx metoprolol tartrate 50 mg tablet 50 mg PO BID heart #180 tabs 12/11/23 03/17/24 Rx Ejection fraction %: 50 Have you fallen in the past year?: No PFSH Medical History Kidney stones GERD (gastroesophageal reflux disease) Cirrhosis Former smoker Myocardial infarct Congestive heart failure (CHF) Atrial fibrillation Hypertension Cardiomyopathy, ischemic Essential hypertension History of left heart catheterization (LHC) ( 12/25/19) Umbilical hernia Colon polyp Antimitochondrial antibody positive Impaired fasting blood sugar Gastritis and duodenitis Hypothyroidism Carotid artery stenosis Paroxysmal atrial fibrillation Type 2 diabetes mellitus without complications PVD (peripheral vascular disease) Atherosclerosis of coronary artery of [place] heart without angina pectoris Old inferior wall myocardial infarction Nonrheumatic mitral valve prolapse Nonrheumatic mitral (valve) insufficiency Secondary pulmonary arterial hypertension BPH (benign prostatic hyperplasia) Hyperlipidemia Surgical History History of coronary artery stent placement H/O cataract extraction History of partial colectomy History of colectomy Hx of cholecystectomy History of herniorrhaphy S/P TURP H/O coronary artery bypass surgery Family Hi (more content not included)... Normal [facility] Lipid Profileon 03-17-2024 Cholesterol [Mass/Vol] 104 mg/dL Normal 200 [facility] Comment on above: Order Comment: Comme nts: okay to do non fasting okay to do non fasting Result Comment: <200 mg/dL Desirable 200-240 mg/dL Borderline >240 mg/dL High Risk Performed By: #### L 500.3400, L500.4100 #### [facility] [address] [place], [address] Cholesterol in HDL [Mass/Vol] 44 mg/dL Normal [facility] Comment on above: Order Comment: Comme nts: okay to do non fasting okay to do non fasting Result Comment: The drugs N-Acetylcysteine and Metamizole may falsely depress this assay. Reference Range HDL <40 mg/dL Low HDL Cholesterol HDL >or= 60 mg/dL High HDL Cholesterol Performed By: #### L 500.3400, L500.4100 #### [facility] [address] [place], [address] Cholesterol in LDL [Mass/Vol] 37 mg/dL Normal 0-130 [facility] Comment on above: Order Comment: Comme nts: okay to do non fasting okay to do non fasting Performed By: #### L 500.3400, L500.4100 #### [facility] [address] [place], [address] Cholesterol in VLDL [Mass/Vol] 23 mg/dL Normal 5-40 [facility] Comment on above: Order Comment: Comme nts: okay to do non fasting okay to do non fasting Performed By: #### L 500.3400, L500.4100 #### [facility] [address] [place], [address] Triglyceride [Mass/Vol] 116 mg/dL Normal [facility] Comment on above: Order Comment: Comme nts: okay to do non fasting okay to do non fasting Result Comment: The drugs N-Acetylcysteine and Metamizole may falsely depress this assay. Serum Triglycerides Reference Interval Normal <150 mg/dL Borderline high 150 - 199 mg/dL High 200 - 499 mg/dL Very High > or = 500 mg/dL Performed By: #### L 500.3400, L500.4100 #### [facility] [address] [place], [address] Liver Profileon 03-17-2024 Albumin [Mass/Vol] 3.2 g/dL Normal 3.2-5.0 [facility] Comment on above: Order Comment: Comme nts: okay to do non fasting okay to do non fasting Performed By: #### L 500.3400, L500.4100 #### [facility] [address] [place], [address] ALK P 90 U/L Normal 45-117 [facility] Comment on above: Order Comment: Comme nts: okay to do non fasting okay to do non fasting Performed By: #### L 500.3400, L500.4100 #### [facility] [address] [place], [address] ALT [Catalytic activity/Vol] 23 U/L Normal 16-61 [facility] Comment on above: Order Comment: Comme nts: okay to do non fasting okay to do non fasting Performed By: #### L 500.3400, L500.4100 #### [facility] [address] [place], [address] AST [Catalytic activity/Vol] 20 U/L Normal 15-37 [facility] Comment on above: Order Comment: Comme nts: okay to do non fasting okay to do non fasting Performed By: #### L 500.3400, L500.4100 #### [facility] [address] [place], [address] Bilirubin [Mass/Vol] 0.60 mg/dL Normal 0.20-1.00 [facility] Comment on above: Order Comment: Comme nts: okay to do non fasting okay to do non fasting Result Comment: For patients on eltrombopag therapy, use of Dimension Hospers TBIL is not recommended. Performed By: #### L 500.3400, L500.4100 #### [facility] [address] [place], [address] Bilirubin.direct [Mass/Vol] 0.19 mg/dL Normal 0.00-0.30 [facility] Comment on above: Order Comment: Comme nts: okay to do non fasting okay to do non fasting Performed By: #### L 500.3400, L500.4100 #### [facility] [address] [place], [address] Globulin (S) [Mass/Vol] 3.3 g/dL Normal 2.2-4.2 [facility] Comment on above: Order Comment: Comme nts: okay to do non fasting okay to do non fasting Performed By: #### L 500.3400, L500.4100 #### [facility] [address] [place], [address] T PROT 6.5 g/dL Normal 6.4-8.2 [facility] Comment on above: Order Comment: Comme nts: okay to do non fasting okay to do non fasting Performed By: #### L 500.3400, L500.4100 #### [facility] [address] [place], [address] Lipid Profileon 09-11-2023 Cholesterol [Mass/Vol] 99 mg/dL Normal 200 [facility] Comment on above: Result Comment: <200 mg/dL Desirable 200-240 mg/dL Borderline >240 mg/dL High Risk Performed By: #### L 500.4100, L500.3400 #### [facility] [address] [place], [address] Cholesterol in HDL [Mass/Vol] 43 mg/dL Normal [facility] Comment on above: Result Comment: The drugs N-Acetylcysteine and Metamizole may falsely depress this assay. Reference Range HDL <40 mg/dL Low HDL Cholesterol HDL >or= 60 mg/dL High HDL Cholesterol Performed By: #### L 500.4100, L500.3400 #### [facility] [address] [place], [address] Cholesterol in LDL [Mass/Vol] 39 mg/dL Normal 0-130 [facility] Comment on above: Performed By: #### L 500.4100, L500.3400 #### [facility] [address] [place], [address] Cholesterol in VLDL [Mass/Vol] 17 mg/dL Normal 5-40 [facility] Comment on above: Performed By: #### L 500.4100, L500.3400 #### [facility] [address] [place], [address] Triglyceride [Mass/Vol] 85 mg/dL Normal [facility] Comment on above: Result Comment: The drugs N-Acetylcysteine and Metamizole may falsely depress this assay. Serum Triglycerides Reference Interval Normal <150 mg/dL Borderline high 150 - 199 mg/dL High 200 - 499 mg/dL Very High > or = 500 mg/dL Performed By: #### L 500.4100, L500.3400 #### [facility] [address] [place], [address] Liver Profileon 09-11-2023 Albumin [Mass/Vol] 3.2 g/dL Normal 3.2-5.0 [facility] Comment on above: Performed By: #### L 500.4100, L500.3400 #### [facility] [address] [place], [address] ALK P 93 U/L Normal 45-117 [facility] Comment on above: Performed By: #### L 500.4100, L500.3400 #### [facility] [address] [place], [address] ALT [Catalytic activity/Vol] 21 U/L Normal 16-61 [facility] Comment on above: Performed By: #### L 500.4100, L500.3400 #### [facility] [address] [place], [address] AST [Catalytic activity/Vol] 19 U/L Normal 15-37 [facility] Comment on above: Performed By: #### L 500.4100, L500.3400 #### [facility] [address] [place], [address] Bilirubin [Mass/Vol] 0.70 mg/dL Normal 0.20-1.00 [facility] Comment on above: Result Comment: For patients on eltrombopag therapy, use of Dimension Hospers TBIL is not recommended. Performed By: #### L 500.4100, L500.3400 #### [facility] [address] [place], [address] Bilirubin.direct [Mass/Vol] 0.22 mg/dL Normal 0.00-0.30 [facility] Comment on above: Performed By: #### L 500.4100, L500.3400 #### [facility] [address] [place], [address] Globulin (S) [Mass/Vol] 3.3 g/dL Normal 2.2-4.2 [facility] Comment on above: Performed By: #### L 500.4100, L500.3400 #### [facility] [address] [place], [address] T PROT 6.5 g/dL Normal 6.4-8.2 [facility] Comment on above: Performed By: #### L 500.4100, L500.3400 #### [facility] [address] [place], [address] 12 Lead EKG performed by [facility] on 09-10-2023 12 Lead EKG performed by [facility] [address] [place] [address] 12 Lead EKG performed by [facility] 09/10/23820 MR#: [id number] Acct: [id number] Name: SHELDON JOHNSON Rep #: [id number] : 1935 88 From: Carroll Ferrer MD Attending Dr: Dr. Carroll Ferrer MD Status: BORJAS Ordering Dr: Carroll Ferrer MD Date: 09/10/23 Location: [facility] Sex: M C Admitted: BMS/12 Lead EKG performed by [facility] ECG Report Interpretation Sinus Bradycardia -First degree A-V block Glo = 248-Right bundle branch block. -Inferior infarct -age undetermined. - Nonspecific T-abnormality. ABNORMAL Electronically signed on 09/10/2023 at 12:[address] Carroll Ferrer [employer] Version 8610 09/10/23 1225 Date Carroll Ferrer MD CC: Dr. Bernice Aquino MD Date Dictated: 09/10/23820 Date Transcribed: 09/10/23820 Government Relations Manager: Signed Normal [facility] Cardiology Visit Reporton Cardiology Visit Report [facility] [address] [place] [address] OFFICE VISIT Date of Service: 09/10/23 MR#: [id number] Acct: [id number] Name: SHELDON JOHNSON Rep #: [id number] : 1935 Provider: Dr. Carroll thomas MD Age/Sex: 88/M [facility] [facility] Status: Signed HPI [facility] History of Present Illness Details: Sheldon Johnson is an 88-year-old white male who presents today for outpatient cardiovascular follow- up with a history of underlying CAD, CABG, recovered ischemic cardiomyopathy, PAF, mitral valve prolapse/insufficiency, pulmonary hypertension, hyperlipidemia, and hypertension??? The patient denies any anginal type symptoms. He is up and about regular activity levels [place] with [place] cane. He has had no change in his exercise tolerance. Patient denies any PND orthopnea denies any significant lower extremity edema. He does have dependent edema that is controlled with compression socks. He denies any syncope or near syncope denies any palpitations. He reports that since being placed on metoprolol twice daily his palpitations have totally resolved. EKG in office today shows sinus bradycardia at 58 bpm with a first-degree AV block right bundle branch block and an old inferior wall infarct pattern. The patient's original presentation prior to his bypass graft surgery in 2001 was profound dyspnea on exertion and inability to walk more than a few feet. He underwent bypass graft surgery at [place] March 2001. He had a repeat catheterization December 2019 the ostial LAD was subtotally obstructed the mid LAD fills via antegrade flow and via flow from the BLUE graft with no significant distal disease. The first diagonal branch was totally occluded and filled via a vein graft. The ostial circumflex was severely calcified and subtotally obstructed. The right coronary artery was occluded proximally the vein graft to the right posterior descending artery was patent with a 50% stenosis in the sequential segment to the right posterolateral branch. The right posterolateral branch was occluded. The saphenous vein graft and the circumflex arising off of the vein graft from the diagonal was occluded. Echocardiogram done January 2023 showed that the LV ejection fraction had recovered from 40% up to 50%. There continues to be segmental wall motion abnormalities. Intake Vital Signs 04/08/23 08:29 09/10/23 10:23 Height 5 ft 10 in 5 ft 10 in Weight: 160 lb 161 lb BMI 22.9 23.1 BP 160/69 H 146/68 H Blood Pressure Location Lt brachial Lt brachial Position Sitting Sitting Respiration 16 18 Pulse 62 60 Pulse Source Monitor Monitor Pulse Oximetry (%) 97 Oxygen Delivery Method room air Intake Visit Reasons: 6 M FU/PREV PFM Loin Trimmer Required: No Accompanied by: Self Is patient in pain?: No Allergies No Known Allergies Allergy (Verified 09/10/23 10:25) Medications ???Medication ???Instructions ???Recorded ???Confirmed ???Type hejujfkn-klp-chadt acid 0.4 1 ea PO DAILY supplement 09/04/13 09/10/23 History mg-lycopene 300 mcg-lutein 250 mcg tablet aspirin 81 mg chewable tablet 81 mg PO DAILY@0800 prevention 08/30/14 09/10/23 History ursodiol 500 mg tablet 500 mg PO BID bladder 08/07/18 09/10/23 History potassium gluconate 600 mg (99 mg) 600 mg PO DAILY supplement 12/07/19 09/10/23 History tablet atorvastatin 80 mg tablet 80 mg PO QHS cholestrol #90 tabs 11/21/20 09/10/23 Rx pantoprazole 20 mg tablet,delayed 20 mg PO DAILY decrease acid 03/31/21 09/10/23 History release Handicap Placard #1 ea 10/05/21 05/10/22 Rx amlodipine 5 mg tablet 5 mg PO DAILY blood pressure 02/06/23 09/10/23 History losartan 50 mg tablet 50 mg PO DAILY #90 tabs 02/15/23 09/10/23 Rx cholecalciferol (vitamin D3) 25 25 mcg PO DAILY 04/08/23 09/10/23 History mcg (1,000 unit) tablet isosorbide mononitrate 60 mg 60 mg PO QAM heart #90 tabs 04/18/23 09/10/23 Rx tablet,extended release 24 hr metoprolol tartrate 50 mg tablet 50 mg PO BID heart #180 tabs 07/03/23 09/10/23 Rx Ejection fraction %: 50 Have you fallen in the past year?: No PFSH Medical History Kidney stones GERD (gastroesophageal reflux disease) Cirrhosis Former smoker Myocardial infarct Congestive heart failure (CHF) Atrial fibrillation Hypertension Cardiomyopathy, ischemic Essential hypertension History of left heart catheterization (LHC) ( 12/25/19) Umbilical hernia Colon polyp Antimitochondrial antibody positive Impaired fasting blood sugar Gastritis and duodenitis Hypothyroidism Carotid artery stenosis Paroxysmal atrial fibrillation Type 2 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 Normal [facility] BNP,B-Type NATRIURETIC PEPTI Yosvany 08-07-2023 Natriuretic peptide B (Bld) [Mass/Vol] 577.4 pg/mL High 0-100 [facility] Comment on above: Performed By: #### L 503.6620, L500.2500, L501.5200, L100.0100 ####[facility] [address] [place], [address] Basic Metabolic Profile (BMP )on 08-07-2023 BUN/CRE 25.3 RATIO High 10-20 [facility] Comment on above: Performed By: #### L 503.6620, L500.2500, L501.5200, L100.0100 ####[facility] [address] [place], [address] CA,Total 9.1 mg/dL Normal 8.5-10.1 [facility] Comment on above: Performed By: #### L 503.6620, L500.2500, L501.5200, L100.0100 ####[facility] [address] [place], [address] Chloride [Moles/Vol] 111 mmol/L High 98-107 [facility] Comment on above: Performed By: #### L 503.6620, L500.2500, L501.5200, L100.0100 ####[facility] [address] [place], [address] CO2 [Moles/Vol] 23.0 mmol/L Normal 21.0-32.0 [facility] Comment on above: Performed By: #### L 503.6620, L500.2500, L501.5200, L100.0100 ####[facility] [address] [place], [address] Creatinine [Mass/Vol] 1.46 mg/dL High 0.70-1.30 [facility] Comment on above: Result Comment: The validity of the calculated GFR GFRAA in patients over 70 years has not been determined. Clinical correlation is essential. Performed By: #### L 503.6620, L500.2500, L501.5200, L100.0100 ####[facility] [address] [place], [address] EST GFR - AA 59 mL/min Low >60 [facility] Comment on above: Result Comment: Afri can [place] GFR Calc Performed By: #### L 503.6620, L500.2500, L501.5200, L100.0100 ####[facility] [address] [place], [address] GAP 7 Normal 5-15 [facility] Comment on above: Performed By: #### L 503.6620, L500.2500, L501.5200, L100.0100 ####[facility] [address] [place], [address] GFR/1.73 sq M.predicted among non-blacks MDRD (S/P/Bld) [Vol rate/Area] 49 mL/min/{1.73_m2} Low >60 [facility] Comment on above: Result Comment: Non- GFR Calc Performed By: #### L 503.6620, L500.2500, L501.5200, L100.0100 ####[facility] [address] [place], [address] Glucose [Mass/Vol] 99 mg/dL Normal 74-106 [facility] Comment on above: Performed By: #### L 503.6620, L500.2500, L501.5200, L100.0100 ####[facility] [address] [place], [address] Potassium [Moles/Vol] 4.0 mmol/L Normal 3.5-5.1 [facility] Comment on above: Performed By: #### L 503.6620, L500.2500, L501.5200, L100.0100 ####[facility] [address] [place], [address] Sodium [Moles/Vol] 141 mmol/L Normal 136-145 [facility] Comment on above: Performed By: #### L 503.6620, L500.2500, L501.5200, L100.0100 ####[facility] [address] [place], [address] Urea nitrogen [Mass/Vol] 37 mg/dL High 7-18 [facility] Comment on above: Performed By: #### L 503.6620, L500.2500, L501.5200, L100.0100 ####[facility] [address] [place], [address] CBC W/Diff, Automatedon 05-2 Absolute Lymph 3.00 X10 3/uL Normal 0.83-4.51 [facility] Comment on above: Performed By: #### L 503.6620, L500.2500, L501.5200, L100.0100 #### [facility] [address] [place], [address] Absolute Neut 5.3 X10 3/uL Normal 2.0-7.7 [facility] Comment on above: Performed By: #### L 503.6620, L500.2500, L501.5200, L100.0100 #### [facility] [address] [place], [address] Basophils/100 WBC (Bld) 0.3 % Normal 0-1 [facility] Comment on above: Performed By: #### L 503.6620, L500.2500, L501.5200, L100.0100 #### [facility] [address] [place], [address] Eosinophils/100 WBC (Bld) 1.9 % Normal 0-5 [facility] Comment on above: Performed By: #### L 503.6620, L500.2500, L501.5200, L100.0100 #### [facility] [address] [place], [address] Erythrocyte distribution width (RBC) [Ratio] 13.9 % Normal 11.6-14.6 [facility] Comment on above: Performed By: #### L 503.6620, L500.2500, L501.5200, L100.0100 #### [facility] [address] [place], [address] Hematocrit (Bld) [Volume fraction] 40.5 % Normal 40-54 [facility] Comment on above: Performed By: #### L 503.6620, L500.2500, L501.5200, L100.0100 #### [facility] [address] [place], [address] Hemoglobin (Bld) [Mass/Vol] 12.8 g/dL Low 13.0-16.5 [facility] Comment on above: Performed By: #### L 503.6620, L500.2500, L501.5200, L100.0100 #### [facility] [address] [place], [address] IG% 0.300 Normal 0.0-0.9 [facility] Comment on above: Result Comment: IG% - Immature Granulocytes (promyelocytes, myelocytes and metamyelocytes) > 1% indicates that a LEFT SHIFT is Present. Performed By: #### L [id number], L500.2500, L501.5200, L100.0100 #### [facility] [address] [place], [address] Lymphocytes/100 WBC (Bld) 32.3 % Normal 19-41 [facility] Comment on above: Performed By: #### L [id number], L500.2500, L501.5200, L100.0100 #### [facility] [address] [place], [address] MCH (RBC) [Entitic mass] 30.6 pg Normal 27.0-32.0 [facility] Comment on above: Performed By: #### L [id number], L500.2500, L501.5200, L100.0100 #### [facility] [address] [place], [address] MCHC (RBC) [Mass/Vol] 31.6 g/dL Low 32-36 [facility] Comment on above: Performed By: #### L [id number], L500.2500, L501.5200, L100.0100 #### [facility] [address] [place], [address] MCV (RBC) [Entitic vol] 96.9 fL High 80-94 [facility] Comment on above: Performed By: #### L [id number], L500.2500, L501.5200, L100.0100 #### [facility] [address] [place], [address] Monocytes/100 WBC (Bld) 8.4 % Normal 0-10 [facility] Comment on above: Performed By: #### L [id number], L500.2500, L501.5200, L100.0100 #### [facility] [address] [place], [address] Neutrophils/100 WBC (Bld) 56.8 % Normal 47-70 [facility] Comment on above: Performed By: #### L [id number], L500.2500, L501.5200, L100.0100 #### [facility] [address] [place], [address] Nucleated RBC (Bld) [#/Vol] 0 10*3/uL Normal 0-5 [facility] Comment on above: Performed By: #### L [id number], L500.2500, L501.5200, L100.0100 #### [facility] [address] [place], [address] Platelet mean volume (Bld) [Entitic vol] 10.9 fL Normal 6.2-12.0 [facility] Comment on above: Performed By: #### L [id number], L500.2500, [id number], L100.0100 #### [facility] [address] [place], [address] Platelets (Bld) [#/Vol] 178 10*3/uL Normal 150-450 [facility] Comment on above: Performed By: #### L [id number], L500.2500, L501.5200, L100.0100 #### [facility] [address] [place], [address] RBC (Bld) [#/Vol] 4.18 10*6/uL Low 4.6-6.2 [facility] Comment on above: Performed By: #### L [id number], L500.2500, [id number], L100.0100 #### [facility] [address] [place], [address] RDW SD 49.9 fl High 35.1-43.9 [facility] Comment on above: Performed By: #### L [id number], L500.2500, [id number], L100.0100 #### [facility] [address] [place], [address] WBC (Bld) [#/Vol] 9.3 10*3/uL Normal 4.4-11.0 [facility] Comment on above: Performed By: #### L [id number], L500.2500, L501.5200, L100.0100 #### [facility] [address] [place], [address] Magnesiumon 08-07-2023 Magnesium [Mass/Vol] 1.9 mg/dL Normal 1.6-2.6 [facility] Comment on above: Performed By: #### L [id number], L500.2500, [id number], L100.0100 ####[facility] [address] [place], [address] US ABDOMEN COMPLETEon 2023 US ABDOMEN COMPLETE ORIGINAL EXAMINATION: COMPLETE ABDOMINAL ULTRASOUND04/22/2023 8:42 am ULTRASOUND ABDOMEN COMPLETE, COMPARISON: 11/07/2022 HISTORY: ORDERING SYSTEM PROVIDED HISTORY: Reason for Exam: CIRRHOSIS FINDINGS: The liver is mildly heterogeneous and coarsened. No suspicious focal lesions are seen and there is no obvious nodularity of the visualized liver margins. This is non-specific but is usually seen with fatty infiltration of the liver. There is antegrade flow in the main portal vein. There is no intrahepatic biliary duct dilatation. The common duct is 7.2 mm at the bernadine hepatis. The gallbladder is surgically absent. Gall bladder fossa area is normal. The pancreas as visualized in the region of the head, neck and body is normal in size and echogenicity. Some portions are poorly seen due to obscuration by bowel gas artifacts. No free fluid is seen in the abdomen. The spleen is normal in size and echogenic appearance. Limited survey images of the kidneys show normal cortical thickness and echogenicity and no pelvicaliectasis. . Visualized IVC and aorta are not abnormally dilated. IMPRESSION: Status post-cholecystectomy. Diffuse hepatocellular disease with findings consistent with cirrhosis. No splenomegaly.. Interpreted by: Pedro Day MD Preliminary Report By: Pedro Day MD Electronically signed By Pedro Day MD Dictated Date: 04/22/2023 4:48:11 PM Prelim Date: 04/22/2023 4:50:57 PM Sign Date: 04/22/2023 4:50:57 PM Ordering Provider: HARMONY DAVID [facility] ([place]) Absolute lymphocyte countOrd ered By: Edwina Collins on 03-08-2023 Lymphocytes Auto (Unsp spec) [#/Vol] 3.95 10*3/uL 0.83-4.51 [facility] Basophil percentageOrdered B y: Edwina Collins on 03-08-2023 Basophils/100 WBC (Bld) 0.3 % 0-1 [facility] Eosinophils/100 WBC (Bld) 1.4 % 0-5 [facility] Neutrophils (Bld) [#/Vol] 5.4 10*3/uL 2.0-7.7 [facility] Neutrophils/100 WBC (Bld) 52.6 % 47-70 [facility] WBC (Bld) [#/Vol] 10.3 10*3/uL 4.4-11.0 [facility] Chloride [Moles/Vol] 112 mmol/L 98-107 [facility] Glucose [Mass/Vol] 120 mg/dL 74-106 [facility] Comment on above: Fasting Glucose resu lt from 100 to 125 mg/dL suggests IMPAIRED HOMEOSTASIS per A.D.A. criteria. Potassium [Moles/Vol] 4.1 mmol/L 3.5-5.1 [facility] Sodium [Moles/Vol] 143 mmol/L 136-145 [facility] Bilirubin Test strip Ql (U)O rdered By: Edwina Collins on 03-08-2023 Bilirubin Ql (U) Negative Negative [facility] Blood erythrocytes count (nu mber/volume)Ordered By: Edwina Collins on 03-08-2023 RBC (Bld) [#/Vol] 4.22 10*6/uL 4.6-6.2 [facility] Blood hemoglobin measurement (mass/volume)Ordered By: Edwina Collins on 03-08-2023 Hemoglobin (Bld) [Mass/Vol] 12.7 g/dL 13.0-16.5 [facility] Blood lymphocytes/100 leukoc ytesOrdered By: Edwina Collins on 03-08-2023 Lymphocytes/100 WBC (Bld) 38.3 % 19-41 [facility] Blood monocytes/100 leukocyt esOrdered By: Edwina Collins on 03-08-2023 Monocytes/100 WBC (Bld) 7.1 % 0-10 [facility] Blood platelet mean volumeOr dered By: Edwina Collins on 03-08-2023 Platelet mean volume (Bld) [Entitic vol] 10.4 fL 6.2-12.0 [facility] Determination of erythrocyte mean corpuscular volume (MCV)Ordered By: Edwina Collins on 03-08-2023 MCV (RBC) [Entitic vol] 96.9 fL 80-94 [facility] Hematocrit Auto (Bld) [Volum e fraction]Ordered By: Edwina Collins on 03-08-2023 Hematocrit (Bld) [Volume fraction] 40.9 % 40-54 [facility] Ketones Test strip Ql (U)Ord ered By: Edwina Collins on 03-08-2023 Ketones Ql (U) Negative Negative [facility] - Chemistry and C hemistry - challengeOrdered By: Edwina Collins on 03-08-2023 CO2 [Moles/Vol] 28.0 mmol/L 21.0-32.0 [facility] Urea nitrogen/Creatinine [Mass ratio] 20.6 mg/mg 10-20 [facility] - Hematology and Cell countsOrdered By: Edwina Collins on 03-08-2023 Erythrocyte distribution width (RBC) [Entitic vol] 49.1 fL 35.1-43.9 [facility] Erythrocyte distribution width (RBC) [Ratio] 13.9 % 11.6-14.6 [facility] Immature granulocytes/100 WBC (Bld) 0.300 % 0.0-0.9 [facility] Comment on above: IG% - Immature Granu locytes (promyelocytes, myelocytes and metamyelocytes) > 1% indicates that a LEFT SHIFT is Present. MCH (RBC) [Entitic mass] 30.1 pg 27.0-32.0 [facility] Nucleated RBC/100 WBC (Bld) [Ratio] 0 % 0-5 [facility] MCHC Auto (RBC) [Mass/Vol]Or dered By: Edwina Collins on 03-08-2023 MCHC (RBC) [Mass/Vol] 31.1 g/dL 32-36 [facility] Nitrite Test strip Ql (U)Ord ered By: Edwina Collins on 03-08-2023 Nitrite Ql (U) Negative Negative [facility] No Panel InformationOrdered By: Edwina Collins on 03-08-2023 Estimated GFR (MDRD) Amer 61 mL/min >60 [facility] Comment on above: GFR Calc Estimated GFR (MDRD) Non-Af Amer 51 mL/min >60 [facility] Comment on above: Non- GFR Calc Platelets bldOrdered By: Daniel Collins on 03-08-2023 Platelets (Bld) [#/Vol] 213 10*3/uL 150-450 [facility] Protein Test strip Ql (U)Ord ered By: Edwina Collins on 03-08-2023 Protein Ql (U) 30 mg/dl Negative [facility] Serum or plasma calcium bandar urement (mass/volume)Ordered By: Edwina Collins on 03-08-2023 Calcium [Mass/Vol] 9.1 mg/dL 8.5-10.1 [facility] Serum or plasma creatinine m easurement (mass/volume)Ordered By: Edwina Collins on 03-08-2023 Creatinine [Mass/Vol] 1.41 mg/dL 0.70-1.30 [facility] Comment on above: The validity of the calculated GFR & GFRAA in patients over 70 years has not been determined. Clinical correlation is essential. Serum or plasma urea nitroge n measurement (mass/volume)Ordered By: Edwina Collins on 03-08-2023 Urea nitrogen [Mass/Vol] 29 mg/dL 7-18 [facility] Thin prep Papanicolaou smear with manual screeningOrdered By: Edwina Collins on 03-08-2023 Thin prep Papanicolaou smear with manual screening 3 5-15 [facility] Urine blood detectionOrdered By: Edwina Collins on 03-08-2023 RBC Ql (U) Negative Negative [facility] Urine clarityOrdered By: Daniel Collins on 03-08-2023 Clarity (U) Clear Clear [facility] Urine color determinationOrd ered By: Edwina Collins on 03-08-2023 Color (U) Yellow Yellow [facility] Urine glucose detectionOrder ed By: Edwina Collins on 03-08-2023 Glucose Ql (U) Normal mg/dl Normal [facility] Urine leukocyte esterase det ection by dipstickOrdered By: Edwina Collins on 03-08-2023 Leukocyte esterase Test strip Ql (U) 25 /ul Negative [facility] Urine pHOrdered By: Edwina Collins on 03-08-2023 pH (U) 6.0 [pH] 5.0 - 8.0 [facility] Urine specific gravity measu rementOrdered By: Edwina Collins on 03-08-2023 Specific gravity (U) [Rel density] 1.015 1.002-1.03 0 [facility] Urobilinogen Auto test strip Ql (U)Ordered By: Edwina Collins on 03-08-2023 Urobilinogen Ql (U) 1 mg/dl Normal [facility] Basophil percentageOrdered B y: Bernice Aquino on 02-12-2023 Chloride [Moles/Vol] 115 mmol/L 98-107 [facility] Glucose [Mass/Vol] 85 mg/dL 74-106 [facility] Potassium [Moles/Vol] 4.6 mmol/L 3.5-5.1 [facility] Sodium [Moles/Vol] 145 mmol/L 136-145 [facility] - Chemistry and C hemistry - challengeOrdered By: Bernice Aquino on 02-12-2023 CO2 [Moles/Vol] 25.0 mmol/L 21.0-32.0 [facility] Urea nitrogen/Creatinine [Mass ratio] 23.1 mg/mg 10-20 [facility] No Panel InformationOrdered By: Bernice Aquino on 02-12-2023 Estimated GFR (MDRD) Amer 53 mL/min >60 [facility] Comment on above: GFR Calc Estimated GFR (MDRD) Non-Af Amer 44 mL/min >60 [facility] Comment on above: Non- GFR Calc Serum or plasma calcium bandar urement (mass/volume)Ordered By: Bernice Aquino on 02-12-2023 Calcium [Mass/Vol] 8.7 mg/dL 8.5-10.1 [facility] Serum or plasma creatinine m easurement (mass/volume)Ordered By: Bernice Aquino on 02-12-2023 Creatinine [Mass/Vol] 1.60 mg/dL 0.70-1.30 [facility] Comment on above: The validity of the calculated GFR & GFRAA in patients over 70 years has not been determined. Clinical correlation is essential. Serum or plasma urea nitroge n measurement (mass/volume)Ordered By: Bernice Aquino on 02-12-2023 Urea nitrogen [Mass/Vol] 37 mg/dL 7-18 [facility] Thin prep Papanicolaou smear with manual screeningOrdered By: Bernice Aquino on 02-12-2023 Thin prep Papanicolaou smear with manual screening 5 5-15 [facility] Absolute lymphocyte countOrd ered By: Palak Reyes on 02-08-2023 Lymphocytes Auto (Unsp spec) [#/Vol] 3.67 10*3/uL 0.83-4.51 [facility] Basophil percentageOrdered B y: Palak Reyes on 02-08-2023 Basophils/100 WBC (Bld) 0.3 % 0-1 [facility] Chloride [Moles/Vol] 113 mmol/L 98-107 [facility] Eosinophils/100 WBC (Bld) 0.7 % 0-5 [facility] Glucose [Mass/Vol] 89 mg/dL 74-106 [facility] Neutrophils (Bld) [#/Vol] 5.8 10*3/uL 2.0-7.7 [facility] Neutrophils/100 WBC (Bld) 54.7 % 47-70 [facility] Potassium [Moles/Vol] 3.8 mmol/L 3.5-5.1 [facility] Sodium [Moles/Vol] 141 mmol/L 136-145 [facility] WBC (Bld) [#/Vol] 10.6 10*3/uL 4.4-11.0 [facility] Blood erythrocytes count (nu mber/volume)Ordered By: Palak Reyes on 02-08-2023 RBC (Bld) [#/Vol] 4.28 10*6/uL 4.6-6.2 [facility] Blood hemoglobin measurement (mass/volume)Ordered By: Palak Reyes on 02-08-2023 Hemoglobin (Bld) [Mass/Vol] 13.0 g/dL 13.0-16.5 [facility] Blood lymphocytes/100 leukoc ytesOrdered By: Palak Reyes on 02-08-2023 Lymphocytes/100 WBC (Bld) 34.5 % 19-41 [facility] Blood monocytes/100 leukocyt esOrdered By: Palak Reyes on 02-08-2023 Monocytes/100 WBC (Bld) 9.4 % 0-10 [facility] Blood platelet mean volumeOr dered By: Palak Reyes on 02-08-2023 Platelet mean volume (Bld) [Entitic vol] 10.2 fL 6.2-12.0 [facility] Determination of erythrocyte mean corpuscular volume (MCV)Ordered By: Palak Reyes on 02-08-2023 MCV (RBC) [Entitic vol] 93.0 fL 80-94 [facility] Hematocrit Auto (Bld) [Volum e fraction]Ordered By: Palak Reyes on 02-08-2023 Hematocrit (Bld) [Volume fraction] 39.8 % 40-54 [facility] - Chemistry and C hemistry - challengeOrdered By: Palak Reyes on 02-08-2023 CO2 [Moles/Vol] 20.0 mmol/L 21.0-32.0 [facility] Urea nitrogen/Creatinine [Mass ratio] 33.9 mg/mg 10-20 [facility] - Hematology and Cell countsOrdered By: Palak Reyes on 02-08-2023 Erythrocyte distribution width (RBC) [Entitic vol] 45.8 fL 35.1-43.9 [facility] Erythrocyte distribution width (RBC) [Ratio] 13.4 % 11.6-14.6 [facility] Immature granulocytes/100 WBC (Bld) 0.400 % 0.0-0.9 [facility] Comment on above: IG% - Immature Granu locytes (promyelocytes, myelocytes and metamyelocytes) > 1% indicates that a LEFT SHIFT is Present. MCH (RBC) [Entitic mass] 30.4 pg 27.0-32.0 [facility] Nucleated RBC/100 WBC (Bld) [Ratio] 0 % 0-5 [facility] MCHC Auto (RBC) [Mass/Vol]Or dered By: Palak Reyes on 02-08-2023 MCHC (RBC) [Mass/Vol] 32.7 g/dL 32-36 [facility] No Panel InformationOrdered By: Palak Reyes on 02-08-2023 Estimated Creatinine Clearance Calc 21.99 ml/min [facility] Estimated GFR (MDRD) Amer 34 mL/min >60 [facility] Comment on above: GFR Calc Estimated GFR (MDRD) Non-Af Amer 28 mL/min >60 [facility] Comment on above: Non- GFR Calc Platelets bldOrdered By: Jael Reyes on 02-08-2023 Platelets (Bld) [#/Vol] 158 10*3/uL 150-450 [facility] Serum or plasma calcium bandar urement (mass/volume)Ordered By: Palak Reyes on 02-08-2023 Calcium [Mass/Vol] 8.3 mg/dL 8.5-10.1 [facility] Serum or plasma creatinine m easurement (mass/volume)Ordered By: Palak Reyes on 02-08-2023 Creatinine [Mass/Vol] 2.36 mg/dL 0.70-1.30 [facility] Comment on above: The validity of the calculated GFR & GFRAA in patients over 70 years has not been determined. Clinical correlation is essential. Serum or plasma urea nitroge n measurement (mass/volume)Ordered By: Palak Reyes on 02-08-2023 Urea nitrogen [Mass/Vol] 80 mg/dL 7-18 [facility] Thin prep Papanicolaou smear with manual screeningOrdered By: Palak Reyes on 02-08-2023 Thin prep Papanicolaou smear with manual screening 8 5-15 [facility] - Chemistry and C hemistry - challengeOrdered By: Palak Reyes on 02-07-2023 Sodium (U) [Moles/Vol] 19 mmol/L Not Establ. [facility] - Chemistry and C hemistry - challengeOrdered By: Kevin Delacruz on 02-07-2023 Magnesium [Mass/Vol] 2.2 mg/dL 1.6-2.6 [facility] No Panel InformationOrdered By: Palak Reyes on 02-07-2023 Urine Potassium 54.0 mmol/L Not Establ. [facility] Urine Urea Nitrogen 934 mg/dL NO RANGE EST. [facility] Stool enteric pathogen panel by probe and target amplification methodOrdered By: Kevin Delacruz on 02-07-2023 Gastrointestinal pathogens panel NHAN+probe (Stl) [facility] Thin prep Papanicolaou smear with manual screeningOrdered By: Palak Reyes on 02-07-2023 Thin prep Papanicolaou smear with manual screening 26 mmol/L Not Establ. [facility] Urine creatinine measurement (mass/volume)Ordered By: Palak Reyes on 02-07-2023 Creatinine (U) [Mass/Vol] 240.00 mg/dL NO RANGE EST. [facility] Urine osmolality measurement Ordered By: Palak Reyes on 02-07-2023 Osmolality (U) [Osmolality] 562 mOsm/KG >50 [facility] Comment on above: Normal Urine Referen ce Ranges Random: 50 - 1200 mOsm/kg H20 depending on fluid intake Random: >850 mOsm/kg after 12 hour fluid restriction 24 hour: ~300 - 900 mOsm/kg H2O Absolute lymphocyte countOrd ered By: David Way on 02-06-2023 Lymphocytes Auto (Unsp spec) [#/Vol] 3.73 10*3/uL 0.83-4.51 [facility] Basophil percentageOrdered B y: David Way on 02-06-2023 Basophil percentage 0 SEEN /hpf 0-5 [facility] Basophils/100 WBC (Bld) 0.1 % 0-1 [facility] Bilirubin [Mass/Vol] 0.70 mg/dL 0.20-1.00 [facility] Comment on above: For patients on eltr ombopag therapy, use of Dimension Hospers TBIL is not recommended. Chloride [Moles/Vol] 111 mmol/L 98-107 [facility] Eosinophils/100 WBC (Bld) 0.1 % 0-5 [facility] Glucose [Mass/Vol] 143 mg/dL 74-106 [facility] Comment on above: Fasting Glucose resu lt greater than or equal to 126 mg/dL suggests DIABETES MELLITUS per A.D.A. criteria. Neutrophils (Bld) [#/Vol] 6.7 10*3/uL 2.0-7.7 [facility] Neutrophils/100 WBC (Bld) 57.7 % 47-70 [facility] Potassium [Moles/Vol] 3.8 mmol/L 3.5-5.1 [facility] Protein [Mass/Vol] 7.8 g/dL 6.4-8.2 [facility] Sodium [Moles/Vol] 139 mmol/L 136-145 [facility] WBC (Bld) [#/Vol] 11.6 10*3/uL 4.4-11.0 [facility] Bilirubin Test strip Ql (U)O rdered By: David Way on 02-06-2023 Bilirubin Ql (U) Negative Negative [facility] Blood erythrocytes count (nu mber/volume)Ordered By: David Way on 02-06-2023 RBC (Bld) [#/Vol] 5.47 10*6/uL 4.6-6.2 [facility] Blood hemoglobin measurement (mass/volume)Ordered By: David Way on 02-06-2023 Hemoglobin (Bld) [Mass/Vol] 16.6 g/dL 13.0-16.5 [facility] Blood lymphocytes/100 leukoc ytesOrdered By: David Way on 02-06-2023 Lymphocytes/100 WBC (Bld) 32.0 % 19-41 [facility] Blood monocytes/100 leukocyt esOrdered By: Daivd Way on 02-06-2023 Monocytes/100 WBC (Bld) 9.8 % 0-10 [facility] Blood platelet mean volumeOr dered By: David Way on 02-06-2023 Platelet mean volume (Bld) [Entitic vol] 9.9 fL 6.2-12.0 [facility] Determination of erythrocyte mean corpuscular volume (MCV)Ordered By: David Way on 02-06-2023 MCV (RBC) [Entitic vol] 93.6 fL 80-94 [facility] Hematocrit Auto (Bld) [Volum e fraction]Ordered By: David Way on 02-06-2023 Hematocrit (Bld) [Volume fraction] 51.2 % 40-54 [facility] Hyaline casts LM.LPF (Urine sed) [#/Area]Ordered By: David Way on 02-06-2023 Hyaline casts (Urine sed) [#/Area] 5 /[LPF] 0-5 [facility] Influenza virus A and B and SARS-CoV-2 (COVID-19) Ag panel - Upper respiratory specimOrdered By: David Way on 02-06-2023 SARS-CoV-2 (COVID-19) RNA NHAN+probe Ql (Resp) [facility] Ketones Test strip Ql (U)Ord ered By: David Way on 02-06-2023 Ketones Ql (U) 5 mg/dl Negative [facility] - Chemistry and C hemistry - challengeOrdered By: David Way on 02-06-2023 ALP [Catalytic activity/Vol] 108 U/L 45-117 [facility] ALT [Catalytic activity/Vol] 33 U/L 16-61 [facility] CO2 [Moles/Vol] 21.0 mmol/L 21.0-32.0 [facility] Globulin (S) [Mass/Vol] 4.1 g/dL 2.2-4.2 [facility] Lipase [Catalytic activity/Vol] 25 U/L 13-75 [facility] Comment on above: Please note:LIPASE r evised reference range effective 22. New Lipase methodology. Expected to produce lower values than the previous assay method. NEW Reference Range: 13 - 75 U/L Urea nitrogen/Creatinine [Mass ratio] 24.1 mg/mg 10-20 [facility] - Hematology and Cell countsOrdered By: David Way on 02-06-2023 Erythrocyte distribution width (RBC) [Entitic vol] 47.1 fL 35.1-43.9 [facility] Erythrocyte distribution width (RBC) [Ratio] 13.6 % 11.6-14.6 [facility] Immature granulocytes/100 WBC (Bld) 0.300 % 0.0-0.9 [facility] Comment on above: IG% - Immature Granu locytes (promyelocytes, myelocytes and metamyelocytes) > 1% indicates that a LEFT SHIFT is Present. MCH (RBC) [Entitic mass] 30.3 pg 27.0-32.0 [facility] Nucleated RBC/100 WBC (Bld) [Ratio] 0 % 0-5 [facility] MCHC Auto (RBC) [Mass/Vol]Or dered By: David Way on 02-06-2023 MCHC (RBC) [Mass/Vol] 32.4 g/dL 32-36 [facility] Mucus LM Ql (Urine sed)Order ed By: David Way on 02-06-2023 Mucus Ql (Urine sed) 0 SEEN /hpf [facility] Nitrite Test strip Ql (U)Ord ered By: David Way on 02-06-2023 Nitrite Ql (U) Negative Negative [facility] No Panel InformationOrdered By: Kevin Delacruz on 02-06-2023 Troponin I High Sensitivity 27 pg/mL 3.0-78.0 [facility] Comment on above: Please Note: New Ana t Units and Gender Specific Reference Ranges. For more information see Policy Stat Procedure Hospers High Sensitivity Troponin (TNIH) and attachments. No Panel InformationOrdered By: David Way on 02-06-2023 Estimated GFR (MDRD) Amer 26 mL/min >60 [facility] Comment on above: GFR Calc Estimated GFR (MDRD) Non-Af Amer 21 mL/min >60 [facility] Comment on above: Non- GFR Calc Platelets bldOrdered By: Geneva Way on 02-06-2023 Platelets (Bld) [#/Vol] 225 10*3/uL 150-450 [facility] Protein Test strip Ql (U)Ord ered By: David Way on 02-06-2023 Protein Ql (U) 30 mg/dl Negative [facility] Serum or plasma albumin bandar urement (mass/volume)Ordered By: David Way on 02-06-2023 Albumin [Mass/Vol] 3.7 g/dL 3.2-5.0 [facility] Serum or plasma albumin/glob ulin mass ratioOrdered By: David Way on 02-06-2023 Albumin/Globulin [Mass ratio] 0.9 {ratio} 0.9-2.4 [facility] Serum or plasma calcium bandar urement (mass/volume)Ordered By: David Way on 02-06-2023 Calcium [Mass/Vol] 9.9 mg/dL 8.5-10.1 [facility] Serum or plasma creatinine m easurement (mass/volume)Ordered By: David Way on 02-06-2023 Creatinine [Mass/Vol] 2.99 mg/dL 0.70-1.30 [facility] Comment on above: The validity of the calculated GFR & GFRAA in patients over 70 years has not been determined. Clinical correlation is essential. Serum or plasma urea nitroge n measurement (mass/volume)Ordered By: David Way on 02-06-2023 Urea nitrogen [Mass/Vol] 72 mg/dL 7-18 [facility] Squamous epithelial cells de tection in urine sediment by light microscopyOrdered By: David Way on 02-06-2023 Epithelial cells.squamous LM Ql (Urine sed) 0-5 SEEN /hpf 0-5 [facility] Thin prep Papanicolaou smear with manual screeningOrdered By: David Way on 02-06-2023 Thin prep Papanicolaou smear with manual screening 21 U/L 15-37 [facility] Thin prep Papanicolaou smear with manual screening 7 5-15 [facility] Urine blood detectionOrdered By: David Way on 02-06-2023 RBC Ql (U) 10 /ul Negative [facility] RBC Ql (U) 0-5 SEEN /hpf 0-5 [facility] Urine clarityOrdered By: Geneva Way on 02-06-2023 Clarity (U) Clear Clear [facility] Urine coarse granular cast d etectionOrdered By: David Way on 02-06-2023 Coarse Granular Casts LM Ql (Urine sed) 0-5 SEEN /lpf 0-5 /lpf [facility] Urine color determinationOrd ered By: David Way on 02-06-2023 Color (U) Yellow Yellow [facility] Urine glucose detectionOrder ed By: David Way on 02-06-2023 Glucose Ql (U) Normal mg/dl Normal [facility] Urine leukocyte esterase det ection by dipstickOrdered By: David Way on 02-06-2023 Leukocyte esterase Test strip Ql (U) Negative Negative [facility] Urine pHOrdered By: David jeter on 02-06-2023 pH (U) 5.0 [pH] 5.0 - 8.0 [facility] Urine sediment bacteria coun t by microscopy (number/high power field)Ordered By: David Way on 02-06-2023 Bacteria LM.HPF (Urine sed) [#/Area] 1 /[HPF] None Seen [facility] Urine specific gravity measu rementOrdered By: David Way on 02-06-2023 Specific gravity (U) [Rel density] 1.025 1.002-1.03 0 [facility] Urobilinogen Auto test strip Ql (U)Ordered By: David Worrellalvino on 02-06-2023 Urobilinogen Ql (U) Normal mg/dl Normal [facility] Basophil percentageOrdered B y: Edwina Collins on 11-28-2022 Bilirubin [Mass/Vol] 0.60 mg/dL 0.20-1.00 [facility] Comment on above: For patients on eltr ombopag therapy, use of Dimension Hospers TBIL is not recommended. Cholesterol [Mass/Vol] 119 mg/dL <200 [facility] Comment on above: <200 mg/dL Desirable 200-240 mg/dL Borderline >240 mg/dL High Risk Protein [Mass/Vol] 6.9 g/dL 6.4-8.2 [facility] Triglyceride [Mass/Vol] 132 mg/dL <199 [facility] Comment on above: The drugs N-Acetylcy steine and Metamizole may falsely depress this assay.Serum Triglycerides Reference Interval Normal <150 mg/dL Borderline high 150 - 199 mg/dL High 200 - 499 mg/dL Very High > or = 500 mg/dL Direct bilirubinOrdered By: Ediwna Collins on 11-28-2022 Bilirubin.direct [Mass/Vol] 0.19 mg/dL 0.00-0.30 [facility] Final Surgical Pathology Rep wolf 11-28-2022 Final Surgical Pathology Report . Pathology Reports Accession: Collected Date/Time: Received Date/Time: Pathologist: [id number] 11/26/2022 09:39 EDT 11/27/2022 09:39 EDT MD KIKA DUARTE Final Surgical Pathology Report DIAGNOSIS: A. DUODENUM, BIOPSY: - NO SPECIFIC PATHOLOGIC CHANGES - NEGATIVE FOR CELIAC DISEASE OR DUODENITIS B. STOMACH, BIOPSY: - MILD CHRONIC GASTRITIS WITH INTESTINAL METAPLASIA - NEGATIVE FOR H. PYLORI OR DYSPLASIA C. DISTAL ESOPHAGUS, BIOPSY: - CHANGES SUGGESTIVE OF GASTROESOPHAGEAL REFLUX - NEGATIVE FOR BAI'S D. PROXIMAL ESOPHAGUS, BIOPSY: - NONSPECIFIC REACTIVE CHANGES - NEGATIVE FOR EOSINOPHILIC ESOPHAGITIS CLINICAL INFORMATION: GERD, BAI'S SPECIMEN: A DUODENAL BX - R/O DUODENITIS B GASTRIC BX - R/O H PYLORI C DISTAL ESOPHAGEAL BX - R/O BAI'S D PROXIMAL ESOPHAGEAL BX - R/O ESOPHAGITIS GROSS DESCRIPTION: All parts labelled with patient name and [id number] A. Received in formalin labeled duodenal biopsy is 1 rodgers tissue fragment measuring 0.4 x 0.2 cm. TS-1 B. Received in formalin labeled gastric biopsy are 2 rodgers tissue fragments measuring 0.4 x 0.2 and 0.6 x 0.2. TS-1 C. Received in formalin labeled distal esophageal biopsy is 1 rodgers tissue fragment measuring 0.3 cm. TS-1 D. Received in formalin labeled proximal esophageal biopsy are 2 rodgers tissue fragments measuring 0.2 and 0.3 cm. TS-1 Tami Mcdowell, Grossing W[employer]ator/ Dr. Boubacar Vitale, Pathologist Dictated by Tami Mcdowell MICROSCOPIC DESCRIPTION: The microscopic examination is performed, except in the case of Gross Only. Electronically Signed by Pathology Report verified by [facility] KIKA DUARTE MD Sign out Date: 11/28/2022 09:14 Performing Lab: [facility], [address] [place] [address] Pathology Dept Pathology Reports Accession: Collected Date/Time: Received Date/Time: Pathologist: [id number] 11/26/2022 09:39 EDT 11/27/2022 09:39 EDT MD KIKA DUARTE Disclaimer If ancillary studies were utilized, the following Laboratory Developed Test (LDT) disclaimer will apply: Under CLIA requirements, [facility] is qualified to perform high complexity testing. For all ancillary stains, positive and negative controls stain appropriately. Performance characteristics of immunohistochemical and chromogenic in-situ hybridization tests have been determined by [facility]. These tests are used for clinical purposes, They should not be regarded as investigational or for research. Normal On [facility] ([place]) Laboratory - Chemistry and C hemistry - challengeOrdered By: Edwina Collins on 11-28-2022 ALP [Catalytic activity/Vol] 81 U/L 45-117 [facility] ALT [Catalytic activity/Vol] 22 U/L 16-61 [facility] Globulin (S) [Mass/Vol] 3.5 g/dL 2.2-4.2 [facility] Serum or plasma albumin bandar urement (mass/volume)Ordered By: Edwina Collins on 11-28-2022 Albumin [Mass/Vol] 3.4 g/dL 3.2-5.0 [facility] Serum or plasma cholesterol in HDL measurement (mass/volume)Ordered By: Edwina Collins on 11-28-2022 Cholesterol in HDL [Mass/Vol] 43 mg/dL >40 [facility] Comment on above: The drugs N-Acetylcy steine and Metamizole may falsely depress this assay. Reference Range HDL <40 mg/dL Low HDL Cholesterol HDL >or= 60 mg/dL High HDL Cholesterol Serum or plasma cholesterol in VLDL measurement (mass/volume)Ordered By: Edwina Collins on 11-28-2022 Cholesterol in VLDL [Mass/Vol] 26 mg/dL 5-40 [facility] Serum or plasma low density lipoprotein (LDL) cholesterol measurement (mass/volume)Ordered By: Edwina Collins on 11-28-2022 Cholesterol in LDL [Mass/Vol] 50 mg/dL 0-130 [facility] Thin prep Papanicolaou smear with manual screeningOrdered By: Edwina Collins on 11-28-2022 Thin prep Papanicolaou smear with manual screening 18 U/L 15-37 [facility] US ABDOMEN COMPLETEon 2022 US ABDOMEN COMPLETE ORIGINAL EXAMINATION: COMPLETE ABDOMINAL ULTRASOUND11/07/2022 9:15 am [...] Sign Date: 11/07/2022 9:59:43 AM Ordering Provider: HARMONY DAVID [facility] ([place]) Basophil percentageOrdered B y: Dr. Buck on 05-19-2022 Bilirubin [Mass/Vol] 0.60 mg/dL 0.20-1.00 [facility] Comment on above: For patients on eltr ombopag therapy, use of Dimension Hospers TBIL is not recommended. Cholesterol [Mass/Vol] 110 mg/dL <200 [facility] Comment on above: <200 mg/dL Desirable 200-240 mg/dL Borderline >240 mg/dL High Risk Protein [Mass/Vol] 6.8 g/dL 6.4-8.2 [facility] Triglyceride [Mass/Vol] 110 mg/dL <199 [facility] Comment on above: The drugs N-Acetylcy steine and Metamizole may falsely depress this assay.Serum Triglycerides Reference Interval Normal <150 mg/dL Borderline high 150 - 199 mg/dL High 200 - 499 mg/dL Very High > or = 500 mg/dL Direct bilirubinOrdered By: Dr. Buck on 05-19-2022 Bilirubin.direct [Mass/Vol] 0.24 mg/dL 0.00-0.30 [facility] Laboratory - Chemistry and C hemistry - challengeOrdered By: Dr. Buck on 05-19-2022 ALP [Catalytic activity/Vol] 74 U/L 45-117 [facility] ALT [Catalytic activity/Vol] 25 U/L 16-61 [facility] Globulin (S) [Mass/Vol] 3.4 g/dL 2.2-4.2 [facility] No Panel InformationOrdered By: Dr. David on 05-19-2022 Stool Pancreatic Elastase 225 >200 [facility] Comment on above: Result Units: ug [address]irst[address] st./g Severe Pancreatic Insufficiency: <100 Moderate Pancreatic Insufficiency: 100 - 200 Normal: >200Performed at: - [facility] [id number] Director: Dmitri Mott MD, Phone: [phone] Serum or plasma albumin bandar urement (mass/volume)Ordered By: Dr. Buck on 05-19-2022 Albumin [Mass/Vol] 3.4 g/dL 3.2-5.0 [facility] Serum or plasma cholesterol in HDL measurement (mass/volume)Ordered By: Dr. Buck on 05-19-2022 Cholesterol in HDL [Mass/Vol] 40 mg/dL >40 [facility] Comment on above: The drugs N-Acetylcy steine and Metamizole may falsely depress this assay. Reference Range HDL <40 mg/dL Low HDL Cholesterol HDL >or= 60 mg/dL High HDL Cholesterol Serum or plasma cholesterol in VLDL measurement (mass/volume)Ordered By: Dr. Buck on 05-19-2022 Cholesterol in VLDL [Mass/Vol] 22 mg/dL 5-40 [facility] Serum or plasma low density lipoprotein (LDL) cholesterol measurement (mass/volume)Ordered By: Dr. Buck on 05-19-2022 Cholesterol in LDL [Mass/Vol] 48 mg/dL 0-130 [facility] Thin prep Papanicolaou smear with manual screeningOrdered By: Dr. Bcuk on 05-19-2022 Thin prep Papanicolaou smear with manual screening 20 U/L 15-37 [facility] Absolute lymphocyte countOrd ered By: Dr. David on 05-18-2022 Lymphocytes Auto (Unsp spec) [#/Vol] 4.33 10*3/uL 0.83-4.51 [facility] Basophil percentageOrdered B y: Dr. David on 05-18-2022 Basophils/100 WBC (Bld) 0.4 % 0-1 [facility] Bilirubin [Mass/Vol] 0.40 mg/dL 0.20-1.00 [facility] Comment on above: For patients on eltr ombopag therapy, use of Dimension Hospers TBIL is not recommended. Chloride [Moles/Vol] 110 mmol/L 98-107 [facility] Cholesterol [Mass/Vol] 115 mg/dL <200 [facility] Comment on above: <200 mg/dL Desirable 200-240 mg/dL Borderline >240 mg/dL High Risk Eosinophils/100 WBC (Bld) 2.5 % 0-5 [facility] Glucose [Mass/Vol] 107 mg/dL 74-106 [facility] Comment on above: Fasting Glucose resu lt from 100 to 125 mg/dL suggests IMPAIRED HOMEOSTASIS per A.D.A. criteria. Neutrophils (Bld) [#/Vol] 4.7 10*3/uL 2.0-7.7 [facility] Neutrophils/100 WBC (Bld) 45.9 % 47-70 [facility] Potassium [Moles/Vol] 3.9 mmol/L 3.5-5.1 [facility] Protein [Mass/Vol] 7.1 g/dL 6.4-8.2 [facility] Sodium [Moles/Vol] 143 mmol/L 136-145 [facility] Triglyceride [Mass/Vol] 118 mg/dL <199 [facility] Comment on above: The drugs N-Acetylcy steine and Metamizole may falsely depress this assay.Serum Triglycerides Reference Interval Normal <150 mg/dL Borderline high 150 - 199 mg/dL High 200 - 499 mg/dL Very High > or = 500 mg/dL WBC (Bld) [#/Vol] 10.2 10*3/uL 4.4-11.0 [facility] Blood erythrocytes count (nu mber/volume)Ordered By: Dr. David on 05-18-2022 RBC (Bld) [#/Vol] 4.50 10*6/uL 4.6-6.2 [facility] Blood hemoglobin measurement (mass/volume)Ordered By: Dr. David on 05-18-2022 Hemoglobin (Bld) [Mass/Vol] 14.0 g/dL 13.0-16.5 [facility] Blood lymphocytes/100 leukoc ytesOrdered By: Dr. David on 05-18-2022 Lymphocytes/100 WBC (Bld) 42.5 % 19-41 [facility] Blood monocytes/100 leukocyt esOrdered By: Dr. David on 05-18-2022 Monocytes/100 WBC (Bld) 8.3 % 0-10 [facility] Blood platelet mean volumeOr dered By: Dr. David on 05-18-2022 Platelet mean volume (Bld) [Entitic vol] 9.9 fL 6.2-12.0 [facility] Determination of erythrocyte mean corpuscular volume (MCV)Ordered By: Dr. David on 05-18-2022 MCV (RBC) [Entitic vol] 92.0 fL 80-94 [facility] Direct bilirubinOrdered By: Dr. David on 05-18-2022 Bilirubin.direct [Mass/Vol] 0.15 mg/dL 0.00-0.30 [facility] Hematocrit Auto (Bld) [Volum e fraction]Ordered By: Dr. David on 05-18-2022 Hematocrit (Bld) [Volume fraction] 41.4 % 40-54 [facility] INR in Blood by Coagulation assayOrdered By: Dr. David on 05-18-2022 INR Coag (Bld) [Relative time] 1.2 {INR} [facility] Laboratory - Chemistry and C hemistry - challengeOrdered By: Dr. Daivd on 05-18-2022 ALP [Catalytic activity/Vol] 77 U/L 45-117 [facility] ALT [Catalytic activity/Vol] 22 U/L 16-61 [facility] Amylase [Catalytic activity/Vol] 38 U/L 15-85 [facility] CO2 [Moles/Vol] 27.0 mmol/L 21.0-32.0 [facility] Cobalamin (Vitamin B12) [Mass/Vol] 682 pg/mL 211-911 [facility] Globulin (S) [Mass/Vol] 3.5 g/dL 2.2-4.2 [facility] Urea nitrogen/Creatinine [Mass ratio] 30.5 mg/mg 10-20 [facility] Laboratory - CoagulationOrde red By: Dr. David on 05-18-2022 PT Coag (PPP) [Time] 14.6 s 11.7-14.9 [facility] Laboratory - Hematology and Cell countsOrdered By: Dr. David on 05-18-2022 Erythrocyte distribution width (RBC) [Entitic vol] 44.6 fL 35.1-43.9 [facility] Erythrocyte distribution width (RBC) [Ratio] 13.2 % 11.6-14.6 [facility] Immature granulocytes/100 WBC (Bld) 0.400 % 0.0-0.9 [facility] Comment on above: IG% - Immature Granu locytes (promyelocytes, myelocytes and metamyelocytes) > 1% indicates that a LEFT SHIFT is Present. MCH (RBC) [Entitic mass] 31.1 pg 27.0-32.0 [facility] Nucleated RBC/100 WBC (Bld) [Ratio] 0 % 0-5 [facility] MCHC Auto (RBC) [Mass/Vol]Or dered By: Dr. David on 05-18-2022 MCHC (RBC) [Mass/Vol] 33.8 g/dL 32-36 [facility] No Panel InformationOrdered By: Dr. David on 05-18-2022 Estimated GFR (MDRD) Amer 61 mL/min >60 [facility] Comment on above: GFR Calc Estimated GFR (MDRD) Non-Af Amer 51 mL/min >60 [facility] Comment on above: Non- GFR Calc Thyroid Stimulating Hormone (TSH) 11.40 uIU/mL 0.358-3.74 [facility] Vitamin D 25-Hydroxy 49.7 ng/mL [facility] Comment on above: Vitamin D 25(OH) Sta tus Range Deficiency <20 ng/mL (50nmol/L) Insufficiency 20 - 30 ng/mL (50 - 75 nmol/L) Sufficiency 30 - 100 ng/mL (75 - 250 nmol/L) Toxicity >100 ng/mL (>250 nmol/L) Platelets bldOrdered By: Dr. David on 05-18-2022 Platelets (Bld) [#/Vol] 181 10*3/uL 150-450 [facility] Serum or plasma albumin bandar urement (mass/volume)Ordered By: Dr. David on 05-18-2022 Albumin [Mass/Vol] 3.6 g/dL 3.2-5.0 [facility] Serum or plasma calcium bandar urement (mass/volume)Ordered By: Dr. David on 05-18-2022 Calcium [Mass/Vol] 9.5 mg/dL 8.5-10.1 [facility] Serum or plasma cholesterol in HDL measurement (mass/volume)Ordered By: Dr. David on 05-18-2022 Cholesterol in HDL [Mass/Vol] 43 mg/dL >40 [facility] Comment on above: The drugs N-Acetylcy steine and Metamizole may falsely depress this assay. Reference Range HDL <40 mg/dL Low HDL Cholesterol HDL >or= 60 mg/dL High HDL Cholesterol Serum or plasma cholesterol in VLDL measurement (mass/volume)Ordered By: Dr. David on 05-18-2022 Cholesterol in VLDL [Mass/Vol] 24 mg/dL 5-40 [facility] Serum or plasma creatinine m easurement (mass/volume)Ordered By: Dr. David on 05-18-2022 Creatinine [Mass/Vol] 1.41 mg/dL 0.70-1.30 [facility] Comment on above: The validity of the calculated GFR & GFRAA in patients over 70 years has not been determined. Clinical correlation is essential. Serum or plasma low density lipoprotein (LDL) cholesterol measurement (mass/volume)Ordered By: Dr. David on 05-18-2022 Cholesterol in LDL [Mass/Vol] 48 mg/dL 0-130 [facility] Serum or plasma urea nitroge n measurement (mass/volume)Ordered By: Dr. David on 05-18-2022 Urea nitrogen [Mass/Vol] 43 mg/dL 7-18 [facility] Thin prep Papanicolaou smear with manual screeningOrdered By: Dr. David on 05-18-2022 Thin prep Papanicolaou smear with manual screening 19 U/L 15-37 [facility] Thin prep Papanicolaou smear with manual screening 6 5-15 [facility] Absolute lymphocyte countOrd ered By: Edwina Collins on 05-10-2022 Lymphocytes Auto (Unsp spec) [#/Vol] 3.15 10*3/uL 0.83-4.51 [facility] Basophil percentageOrdered B y: Edwina Collins on 05-10-2022 Basophils/100 WBC (Bld) 0.3 % 0-1 [facility] Bilirubin [Mass/Vol] 0.50 mg/dL 0.20-1.00 [facility] Comment on above: For patients on eltr ombopag therapy, use of Dimension Hospers TBIL is not recommended. Chloride [Moles/Vol] 108 mmol/L 98-107 [facility] Eosinophils/100 WBC (Bld) 2.1 % 0-5 [facility] Glucose [Mass/Vol] 93 mg/dL 74-106 [facility] Neutrophils (Bld) [#/Vol] 6.5 10*3/uL 2.0-7.7 [facility] Neutrophils/100 WBC (Bld) 59.1 % 47-70 [facility] Potassium [Moles/Vol] 4.0 mmol/L 3.5-5.1 [facility] Protein [Mass/Vol] 6.8 g/dL 6.4-8.2 [facility] Sodium [Moles/Vol] 144 mmol/L 136-145 [facility] WBC (Bld) [#/Vol] 11.0 10*3/uL 4.4-11.0 [facility] Basophil percentageOrdered B y: Dr. Buck on 05-10-2022 Cholesterol [Mass/Vol] 106 mg/dL <200 [facility] Comment on above: <200 mg/dL Desirable 200-240 mg/dL Borderline >240 mg/dL High Risk Triglyceride [Mass/Vol] 127 mg/dL <199 [facility] Comment on above: The drugs N-Acetylcy steine and Metamizole may falsely depress this assay.Serum Triglycerides Reference Interval Normal <150 mg/dL Borderline high 150 - 199 mg/dL High 200 - 499 mg/dL Very High > or = 500 mg/dL Blood erythrocytes count (nu mber/volume)Ordered By: Edwina Collins on 05-10-2022 RBC (Bld) [#/Vol] 4.38 10*6/uL 4.6-6.2 [facility] Blood hemoglobin measurement (mass/volume)Ordered By: Edwina Collins on 05-10-2022 Hemoglobin (Bld) [Mass/Vol] 13.4 g/dL 13.0-16.5 [facility] Blood lymphocytes/100 leukoc ytesOrdered By: Edwina Collins on 05-10-2022 Lymphocytes/100 WBC (Bld) 28.6 % 19-41 [facility] Blood monocytes/100 leukocyt esOrdered By: Edwina Collins on 05-10-2022 Monocytes/100 WBC (Bld) 9.4 % 0-10 [facility] Blood platelet mean volumeOr dered By: Edwina Collins on 05-10-2022 Platelet mean volume (Bld) [Entitic vol] 10.8 fL 6.2-12.0 [facility] Determination of erythrocyte mean corpuscular volume (MCV)Ordered By: Edwina Collins on 05-10-2022 MCV (RBC) [Entitic vol] 93.6 fL 80-94 [facility] Direct bilirubinOrdered By: Dr. Buck on 05-10-2022 Bilirubin.direct [Mass/Vol] 0.17 mg/dL 0.00-0.30 [facility] Hematocrit Auto (Bld) [Volum e fraction]Ordered By: Edwina Collins on 05-10-2022 Hematocrit (Bld) [Volume fraction] 41.0 % 40-54 [facility] Laboratory - Chemistry and C hemistry - challengeOrdered By: Edwina Collins on 05-10-2022 ALP [Catalytic activity/Vol] 77 U/L 45-117 [facility] ALT [Catalytic activity/Vol] 23 U/L 16-61 [facility] CO2 [Moles/Vol] 28.0 mmol/L 21.0-32.0 [facility] Globulin (S) [Mass/Vol] 3.4 g/dL 2.2-4.2 [facility] Urea nitrogen/Creatinine [Mass ratio] 27.8 mg/mg 10-20 [facility] Laboratory - Hematology and Cell countsOrdered By: Edwina Collins on 05-10-2022 Erythrocyte distribution width (RBC) [Entitic vol] 45.1 fL 35.1-43.9 [facility] Erythrocyte distribution width (RBC) [Ratio] 13.2 % 11.6-14.6 [facility] Immature granulocytes/100 WBC (Bld) 0.500 % 0.0-0.9 [facility] Comment on above: IG% - Immature Granu locytes (promyelocytes, myelocytes and metamyelocytes) > 1% indicates that a LEFT SHIFT is Present. MCH (RBC) [Entitic mass] 30.6 pg 27.0-32.0 [facility] Nucleated RBC/100 WBC (Bld) [Ratio] 0 % 0-5 [facility] MCHC Auto (RBC) [Mass/Vol]Or dered By: Edwina Collins on 05-10-2022 MCHC (RBC) [Mass/Vol] 32.7 g/dL 32-36 [facility] No Panel InformationOrdered By: Edwina Collins on 05-10-2022 Estimated GFR (MDRD) Amer 57 mL/min >60 [facility] Comment on above: GFR Calc Estimated GFR (MDRD) Non-Af Amer 47 mL/min >60 [facility] Comment on above: Non- GFR Calc Platelets bldOrdered By: Daniel Collins on 05-10-2022 Platelets (Bld) [#/Vol] 196 10*3/uL 150-450 [facility] Serum or plasma albumin bandar urement (mass/volume)Ordered By: Edwina Collins on 05-10-2022 Albumin [Mass/Vol] 3.4 g/dL 3.2-5.0 [facility] Serum or plasma albumin/glob ulin mass ratioOrdered By: Edwina Collins on 05-10-2022 Albumin/Globulin [Mass ratio] 1.0 {ratio} 0.9-2.4 [facility] Serum or plasma calcium bandar urement (mass/volume)Ordered By: Edwina Collins on 05-10-2022 Calcium [Mass/Vol] 9.3 mg/dL 8.5-10.1 [facility] Serum or plasma cholesterol in HDL measurement (mass/volume)Ordered By: Dr. Buck on 05-10-2022 Cholesterol in HDL [Mass/Vol] 37 mg/dL >40 [facility] Comment on above: The drugs N-Acetylcy steine and Metamizole may falsely depress this assay. Reference Range HDL <40 mg/dL Low HDL Cholesterol HDL >or= 60 mg/dL High HDL Cholesterol Serum or plasma cholesterol in VLDL measurement (mass/volume)Ordered By: Dr. Buck on 05-10-2022 Cholesterol in VLDL [Mass/Vol] 25 mg/dL 5-40 [facility] Serum or plasma creatinine m easurement (mass/volume)Ordered By: Edwina Collins on 05-10-2022 Creatinine [Mass/Vol] 1.51 mg/dL 0.70-1.30 [facility] Comment on above: The validity of the calculated GFR & GFRAA in patients over 70 years has not been determined. Clinical correlation is essential. Serum or plasma low density lipoprotein (LDL) cholesterol measurement (mass/volume)Ordered By: Dr. Buck on 05-10-2022 Cholesterol in LDL [Mass/Vol] 44 mg/dL 0-130 [facility] Serum or plasma urea nitroge n measurement (mass/volume)Ordered By: Edwina Collins on 05-10-2022 Urea nitrogen [Mass/Vol] 42 mg/dL 7-18 [facility] Thin prep Papanicolaou smear with manual screeningOrdered By: Edwina Collins on 05-10-2022 Thin prep Papanicolaou smear with manual screening 20 U/L 15-37 [facility] Thin prep Papanicolaou smear with manual screening 8 5-15 [facility] Basophil percentageon 2021 Bilirubin [Mass/Vol] 0.50 mg/dL 0.20-1.00 [facility] Work Phone: Comment on above: For patients on eltr ombopag therapy, use of Dimension Hospers TBIL is not recommended. Cholesterol [Mass/Vol] 110 mg/dL <200 [facility] Work Phone: Comment on above: <200 mg/dL Desirable 200-240 mg/dL Borderline >240 mg/dL High Risk Protein [Mass/Vol] 7.0 g/dL 6.4-8.2 [facility] Work Phone: Triglyceride [Mass/Vol] 122 mg/dL <199 [facility] Work Phone: Comment on above: The drugs N-Acetylcy steine and Metamizole may falsely depress this assay.Serum Triglycerides Reference Interval Normal <150 mg/dL Borderline high 150 - 199 mg/dL High 200 - 499 mg/dL Very High > or = 500 mg/dL Direct bilirubinon 2 Bilirubin.direct [Mass/Vol] 0.21 mg/dL 0.00-0.30 [facility] Work Phone: Laboratory - Chemistry and C hemistry - challengeon 08-16-2021 ALP [Catalytic activity/Vol] 81 U/L 45-117 [facility] Work Phone: ALT [Catalytic activity/Vol] 25 U/L 16-61 [facility] Work Phone: Globulin (S) [Mass/Vol] 3.5 g/dL 2.2-4.2 [facility] Work Phone: Serum or plasma albumin bandar urement (mass/volume)on 08-16-2021 Albumin [Mass/Vol] 3.5 g/dL 3.2-5.0 [facility] Work Phone: Serum or plasma [id number] protein tumor marker measurement (units/volume)on 08-16-2021 AFP.tumor marker Qn 2.2 ng/mL 0.0-6.4 [facility] Work Phone: Comment on above: [employer] El ectrochemiluminescence Immunoassay(ECLIA)Values obtained with different assay methods or kits cannotbe used interchangeably. Results cannot be interpreted asabsolute evidence of the presence or absence of malignantdisease.This test is not interpretable in females.Performed at: [facility] [id number] Director: Nghia Dan PhD, Phone: [phone] Serum or plasma cholesterol in HDL measurement (mass/volume)on 08-16-2021 Cholesterol in HDL [Mass/Vol] 37 mg/dL >40 [facility] Work Phone: Comment on above: The drugs N-Acetylcy steine and Metamizole may falsely depress this assay. Reference Range HDL <40 mg/dL Low HDL Cholesterol HDL >or= 60 mg/dL High HDL Cholesterol Serum or plasma cholesterol in VLDL measurement (mass/volume)on 08-16-2021 Cholesterol in VLDL [Mass/Vol] 24 mg/dL 5-40 [facility] Work Phone: Serum or plasma low density lipoprotein (LDL) cholesterol measurement (mass/volume)on 08-16-2021 Cholesterol in LDL [Mass/Vol] 49 mg/dL 0-130 [facility] Work Phone: Thin prep Papanicolaou smear with manual screeningon 08-16-2021 Thin prep Papanicolaou smear with manual screening 17 U/L 15-37 [facility] Work Phone: LABORATORYOrdered By: SYSTEM SYSTEM on 09-26-2020 AFP [Mass/Vol] ng/mL Invalid Interpretation Code 0.0 - 8.5 ng/mL AH ADM SS LABORATORYOrdered By: Kimmy Flores on 09-26-2020 Albumin BCP dye [Mass/Vol] 3.6 G/dL Invalid Interpretation Code 3.4 - 4.8 G/dL AO ADM SS Albumin/Globulin [Mass ratio] 1.2 {ratio} Invalid Interpretation Code 1.1 - 2.5 ratio AO ADM SS ALP [Catalytic activity/Vol] 78 U/L Invalid Interpretation Code 40 - 135 U/L AO ADM SS ALT With P-5'-P [Catalytic activity/Vol] 29 U/L Invalid Interpretation Code 16 - 63 U/L AO ADM SS AST With P-5'-P [Catalytic activity/Vol] 21 U/L Invalid Interpretation Code 10 - 40 U/L AO ADM SS Bili Indirect 0.2 mg/dL Invalid Interpretation Code AO Chemistry S Bilirubin [Mass/Vol] 0.4 mg/dL Invalid Interpretation Code 0.2 - 1.0 mg/dL AO ADM SS Bilirubin.direct [Mass/Vol] 0.2 mg/dL Invalid Interpretation Code 0.0 - 0.2 mg/dL AO ADM SS Globulin 3.1 G/dL Invalid Interpretation Code AO ADM SS Protein [Mass/Vol] 6.7 G/dL Invalid Interpretation Code 6.4 - 8.2 G/dL AO ADM SS PROGRESSon 10-23-2017 Protein mass conc HNO ID: [id number] thor: Gloria Chong RtService: (none)Author Type: (none)Type: Progress NotesFiled: 10/23/2017 8:15 AMNote Text: Radiology Service Progress NotePATIENT NAME: Sheldon JohnsonMRN: [id number] OF SERVICE: October 23, 2017TIME: 8:00 AMPATIENT IDENTITY VERIFICATION COMPLETED USING TWO (2) METHODS: Patientconfirmed name verbally and Date of .PATIENT GENDER DATA: MalePATIENT RELEVANT IMPLANT DATA REVIEWED: Not ApplicableRADIOLOGY DEPARTMENT: General X-ray: Exam(s) Completed: Spine X-Ray(s):Cervical AP / LATUpper Extremity X-Ray(s): Elbow, right :PERIPHERAL IV DATA: Not applicableSIGNED BY: Gloria Chong RtA2017 8:00 AM Normal [facility] XR CERVICAL 2V AP/LATon 10-09 Protein mass conc * * *Final Report* * *DATE OF EXAM: Oct 23 2017 8:09AM WOX [id number] - XR CERVICAL 2V AP/LAT / REASON: NECK PAIN * * * * Physician Interpretation * * * * EXAMINATION: XR CERVICAL 2V AP/LATCLINICAL HISTORY: Neck painComparison: NoneRESULT:AP and lateral views reveal moderate disc space narrowing at C3-4, C5-6 and C6-7, with moderate to large anterior osteophytes. Mild anterior position of C4 on C5 appears chronic. No fracture or prevertebral swelling. Mineralization is normal.IMPRESSION:Degenera tive changes.Government Relations Manager: ADOLFO Transcribe Date/Time: Oct 23 2017 9:29ADictated by : MINNA JOHN MDThis examination was interpreted and the report reviewed and electronically signed by: MINNA JOHN MD on Oct 23 2017 9:30AM [id number] Normal [facility] XR ELBOW 3V AP/LAT/OTHER RTo n 10-23-2017 XR ELBOW 3V AP/LAT/OTHER RT * * *Final Report* * *DATE OF EXAM: Oct 23 2017 8:09AM WOX [id number] - XR ELBOW 3V AP/LAT/OTHER RT / REASON: ELBOW PAIN * * * * Physician Interpretation * * * * EXAMINATION: XR ELBOW 3V AP/LAT/OTHER RTCLINICAL HISTORY: RIGHT ELBOW PAIN ALL AROUND JOINT. HX OF FX A CHILD. 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 Normal articulation of the ulnar at the elbow joint. No elbow effusion visualized. 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 The ulnohumeral articulation is maintained.Transcriptionis t: PSCB Transcribe Date/Time: Oct 23 2017 9:51ADictated by : WILNER LEE MDThis examination was interpreted and the report reviewed and electronically signed by: WILNER LEE MD on Oct 23 2017 10:02AM [id number] Normal [facility] No Panel Information Enteric Bacteriology [facility] Work Phone: Vital Signs Date Time Vital Sign Value Performing Clinician Faci lity 02-08-2023 13:55-0500 Body temperature 97.5 [degF] Dr. Bernice Aquino Work Phone: [facility] 02-08-2023 13:55-0500 Diastolic blood pressure 67 mm[Hg] Dr. Bernice Aquino Work Phone: [facility] 02-08-2023 13:55-0500 Heart rate 56 /min Dr. Bernice Aquino Work Phone: [facility] 02-08-2023 13:55-0500 Respiratory rate 18 /min Dr. Bernice Aquino Work Phone: [facility] 02-08-2023 13:55-0500 SaO2% (BldA) [Mass fraction] 96 % Dr. Bernice Aquino Work Phone: [facility] 02-08-2023 13:55-0500 Systolic blood pressure 138 mm[Hg] Dr. Bernice Aquino Work Phone: [facility] 02-07-2023 14:10-0500 Body height 177.[address] Bernice Aquino Work Phone: [facility] 02-07-2023 14:10-0500 Body weight 69.[address] Bernice Aquino Work Phone: [facility] 02-06-2023 15:18-0500 Body mass index (BMI) [Ratio] 21.9 kg/m2 Dr. Bernice Aquino Work Phone: [facility] 02-06-2023 11:59-0500 Body height 177.8 cm [facility] 02-06-2023 11:59-0500 Body temperature 97.2 [degF] [facility] 02-06-2023 11:59-0500 Diastolic blood pressure 90 mm[Hg] [facility] 02-06-2023 11:59-0500 Heart rate 85 /min [facility] 02-06-2023 11:59-0500 Respiratory rate 16 /min [facility] 02-06-2023 11:59-0500 SaO2% (BldA) [Mass fraction] 98 % [facility] 02-06-2023 11:59-0500 Systolic blood pressure 142 mm[Hg] [facility] 05-10-2022 08:31-0500 Body height 177.[address] Samir Abdi Work Phone: [facility] 05-10-2022 08:31-0500 Body mass index (BMI) [Ratio] 23.9 kg/m2 Dr. Samir Abdi Work Phone: [facility] 05-10-2022 08:31-0500 Body weight 75.[address] Samir Abdi Work Phone: [facility] 05-10-2022 08:31-0500 Diastolic blood pressure 72 mm[Hg] Dr. Samri Abdi Work Phone: [facility] 05-10-2022 08:31-0500 Heart rate 66 /min Dr. Samir Abdi Work Phone: [facility] 05-10-2022 08:31-0500 Respiratory rate 16 /min Dr. Samir Abdi Work Phone: [facility] 05-10-2022 08:31-0500 SaO2% (BldA) [Mass fraction] 97 % Dr. Samir Abdi Work Phone: [facility] 05-10-2022 08:31-0500 Systolic blood pressure 132 mm[Hg] Dr. Samir Abdi Work Phone: [facility] 10-05-2021 08:39-0400 Body height 177.[address] Samir Abdi Work Phone: [facility] Work Phone: 10-05-2021 08:39-0400 Body mass index (BMI) [Ratio] 23.9 kg/m2 Dr. Samir Abdi Work Phone: [facility] Work Phone: 10-05-2021 08:39-0400 Body weight 75.[address] Samir Abdi Work Phone: [facility] Work Phone: 10-05-2021 08:39-0400 Diastolic blood pressure 70 mm[Hg] Dr. Samir Abdi Work Phone: [facility] Work Phone: 10-05-2021 08:39-0400 Heart rate 64 /min Dr. Samir Abdi Work Phone: [facility] Work Phone: 10-05-2021 08:39-0400 Systolic blood pressure 140 mm[Hg] Dr. Samir Abdi Work Phone: [facility] Work Phone: Encounters Encounter Date Encounter Type Care Provider Facility Start: 04-03-2024 End: 04-03-2024 ambulatory Bernice Aquino Facility:[facility] Start: 03-17-2024 End: 03-17-2024 ambulatory Edwina VASQUEZ [place] Start: 03-17-2024 End: 03-17-2024 ambulatory Edwina VASQUEZ Facility:[facility] Start: 09-10-2023 End: 09-11-2023 ambulatory Bernice Kenia Facility:[facility] Start: 08-07-2023 End: 08-07-2023 ambulatory Bernice Augusto Facility:[facility] Start: 04-22-2023 End: 04-23-2023 ambulatory MD HARMONY DAVID MD Facility:B Start: 04-22-2023 End: 04-22-2023 Patient encounter procedure HARMONY DAVID MD [facility] Start: 03-08-2023 End: 03-08-[address] Bernice Aquino Work Phone: [facility] Work Phone: Start: 03-08-2023 End: 03-08-[address] Bernice Aquino Work Phone: [facility]-Radiology, [facility] Work Phone: Start: 02-12-2023 End: 02-12-[address] Bernice Aquino Work Phone: [facility] Work Phone: Start: 02-12-2023 End: 02-12-[address] Bernice Aquino Work Phone: [facility]-Laboratory Work Phone: Start: 02-08-2023 Non-patient / Non-visit Dr. Abhinav Aquino Work Phone: [facility] Work Phone: Start: 02-07-2023 Non-patient / Non-visit Dr. Abhinav Aquino Work Phone: [facility] Work Phone: Start: 02-06-2023 End: 02-08-2023 Evaluation and management of inpatient [facility]-Progressive Care Unit Work Phone: Start: 02-06-2023 Non-patient / Non-visit Dr. Abhinav moon [facility] Work Phone: [facility] Work Phone: Start: 11-28-2022 End: 11-28-2022 ambulatory [facility] Work Phone: Start: 11-28-2022 End: 11-28-2022 Patient encounter procedure [facility]-Laboratory Work Phone: Start: 11-26-2022 End: 12-01-2022 ambulatory MD HARMONY DAVID MD Facility:A Start: 11-07-2022 End: 11-08-2022 ambulatory MD HARMONY DAVID MD Facility:[facility] Start: 11-07-2022 End: 11-07-2022 Patient encounter procedure HARMONY DAVID MD [facility] Start: 05-19-2022 End: 05-19-[address] Samir Abdi Work Phone: [facility]-Laboratory Start: 05-18-2022 End: 05-18-[address] Samir Abdi Work Phone: [facility] Work Phone: Start: 05-18-2022 End: 05-18-[address] Samir Abdi Work Phone: [facility]-Laboratory Start: 05-10-2022 End: 05-10-[address] Samir Abdi Work Phone: [facility] Start: 04-16-2022 End: 04-16-2022 Patient encounter procedure HARMONY DAVID MD [facility] Start: 12-08-2021 End: 12-08-[address] Samir Abdi Work Phone: [facility] Work Phone: Start: 12-08-2021 End: 12-08-[address] Samir Abdi Work Phone: [facility]-Laboratory, Specimen Start: 10-09-2021 End: 10-09-2021 Patient encounter procedure HARMONY DAVID MD [facility] Start: 10-05-2021 End: 10-05-[address] Samir Abdi Work Phone: [facility] Start: 09-20-2021 End: 09-20-[address] Samir Abdi Work Phone: [facility]-Ultrasound, [facility] Start: 09-08-2021 End: 09-08-[address] Samir Abdi Work Phone: [facility] Start: 08-16-2021 End: 08-16-[address] Samir Abdi Work Phone: [facility]-Laboratory Start: 03-30-2021 End: 03-30-2021 Patient encounter procedure HARMONY DAVID MD [facility] Start: 09-26-2020 End: 10-21-2021 Lab-Standing Order HARMONY DAVID MD [facility] Start: 10-23-2017 End: 10-23-2017 [facility] Date Procedure Procedure Detail Performing Clinician Start: 03-08-2023 Plain chest X-ray Dr. Bernice Aquino Work Phone: Start: 02-07-[address] Bernice Aquino Work Phone: Start: 02-06-[address] Bernice Aquino Work Phone: Start: 02-06-2023 SARS-CoV-2 & FLU Antigen (Rapid) Start: 02-06-2023 CT of head without contrast Start: 02-06-2023 Plain chest X-ray Start: 09-20-[address] Samir Abdi Work Phone: Start: 09-08-2021 X-ray of chest posteroanterior view Dr. Samir Abdi Work Phone: Start: 09-08-2021 X-ray of lumbosacral spine Dr. Samir mas Work Phone: Clostridium difficil e detection Dr. Samir Abdi Work Phone: Enteric Bacteriology Dr. Clifford Abdi Work Phone: History of coronary artery bypass grafting H/O coronary artery bypass surgery Dr. Samir Abdi Work Phone: Plan of Treatment Date Care Activity Detail Author Start: 02-14-2023 Blood chemistry [facility] Start: 02-13-2023 Blood chemistry [facility] Start: 02-12-2023 Blood chemistry [facility] Start: 02-11-2023 Blood chemistry [facility] Start: 02-10-2023 Blood chemistry [facility] Start: 02-09-2023 Blood chemistry [facility] Start: 02-08-2023 Patient discharge [facility] Start: 02-06-2023 Following clinical p athway protocol [facility] Start: 02-06-2023 Ambulation without limitation [facility] Start: 02-06-2023 Assessment of risk o f venous thromboembolism [facility] Start: 02-06-2023 Insertion of cathete r into peripheral vein [facility] Start: 02-06-2023 Oxygen therapy [facility] Start: 02-06-2023 Providing care accor ding to standard [facility] Start: 02-06-2023 Referral to occupati onal therapist [facility] Start: 02-06-2023 Referral to service [facility] Start: 02-06-2023 [facility] Start: 02-06-2023 Gastrointestinal pat hogens panel - Stool by NHAN with probe detection [facility] Start: 02-06-2023 Troponin I measurement [facility] Start: 02-06-2023 US urinary tract Kidney and Bladder [facility] Start: 02-06-2023 Verification routine [facility] Start: 02-06-2023 Admission procedure [facility] Start: 02-06-2023 Hospital admission, emergency, from emergency room, medical nature [facility] Start: 02-06-2023 Patient referral to dietitian [facility] Start: 12-08-2021 Protein measurement [facility] Work Phone: [id number]-[id number]. tumor marker [Units/volume] in Serum or Plasma [facility] Creatinine [Mass/vol ume] in Urine [facility] Patient Education ED Gastroenter itis, Viral (Adult) [facility] Work Phone: Patient referral [facility] Work Phone: Protein measurement [facility] Work Phone: Retinol [Mass/volume ] in Serum or Plasma [facility] Sodium [Moles/volume ] in Urine [facility] Immunizations Immunization Date Immunization Notes Care Provider Fa erosty 05-23-2018 tetanus toxoid, redu subha diphtheria toxoid, and acellular pertussis vaccine, adsorbed Dr. Samir Abdi Work Phone: [facility] 09-23-[address] Clifford Abdi Work Phone: [facility] Work Phone: 09-23-2011 pneumococcal vaccine , unspecified formulation Dr. Samir Abdi Work Phone: [facility] Payers Date Payer Category Payer [id number] 2023 Self-pay [id number] 2022 Medicare [id number] 2022 Unknown [id number] 1936 Unknown [id number] 2.16.8 [id number] 1936 Unknown [id number] 2.16.8 [id number] 1936 Unknown [id number] 2.16.8 [id number] Unknown [id number] Unknown [id number] 2.16.8 [id number] Unknown [id number] 2.16.8 [id number] Unknown [id number] 2.16.8 [id number] Unknown [id number] 2.16.8 [id number] Unknown [id number] 2.16.8 [id number] Unknown [id number] 2.16.8 [id number] Social History Date Type Detail Facility Start: 03-31-2021 End: 02-06-2023 Tobacco smoking status NHIS Unknown if ever smoked [facility] Start: 09-05-2013 None [facility] Start: 09-05-2013 Spouse/ Signif icant Other [facility] Start: 09-05-2013 Non-smoker [facility] Start: 1935 Sex Assigned At Male W [facility] Goals Date Patient Goal Desired Activity /State Functional Status Date Assessment Result Facility 02-08-2023 Functional status Activity Ability Indepe ndent [facility] Work Phone: 02-07-2023 Functional status Patient Activity Up ad akilah [facility] Work Phone: Mental Status Date Assessment Result Facility 02-08-2023 Cognitive function Voice/Name;Touch/Shaki ng [facility] Work Phone: 02-06-2023 Cognitive function Level Of Cons ciousness Awake;Alert;Appropriate;Follow s Commands [facility] Work Phone: Clinical Notes 04-16-2022 to 04-22-2023 Note Date & Type Note Facility 04-22-2023 Note ORIGINAL EXAMINATION: COMPLETE ABDOMINAL ULTRASOUND04/22/2023 8:42 am ULTRASOUND ABDOMEN COMPLETE, COMPARISON: 11/07/2022 HISTORY: ORDERING SYSTEM PROVIDED HISTORY: Reason for Exam: CIRRHOSIS FINDINGS: The liver is mildly heterogeneous and coarsened. No suspicious focal lesions are seen and there is no obvious nodularity of the visualized liver margins. This is non-specific but is usually seen with fatty infiltration of the liver. There is antegrade flow in the main portal vein. There is no intrahepatic biliary duct dilatation. The common duct is 7.2 mm at the bernadine hepatis. The gallbladder is surgically absent. Gall bladder fossa area is normal. The pancreas as visualized in the region of the head, neck and body is normal in size and echogenicity. Some portions are poorly seen due to obscuration by bowel gas artifacts. No free fluid is seen in the abdomen. The spleen is normal in size and echogenic appearance. Limited survey images of the kidneys show normal cortical thickness and echogenicity and no pelvicaliectasis. . Visualized IVC and aorta are not abnormally dilated. IMPRESSION: Status post-cholecystectomy. Diffuse hepatocellular disease with findings consistent with cirrhosis. No splenomegaly.. Interpreted by: Pedro Day MD Preliminary Report By: Pedro Day MD Electronically signed By Pedro Day MD Dictated Date: 04/22/2023 4:48:11 PM Prelim Date: 04/22/2023 4:50:57 PM Sign Date: 04/22/2023 4:50:57 PM Ordering Provider: [facility] 02-08-2023 Discharge summary Note Date/Time February 08, 2023 1:24pm [facility] Medical Records Department [address] [place] [address] Instructions for Home/Discharge Instructions 02/08/23 1323 MR#: [id number] Acct: [id number] Name: SHELDON JOHNSON Rep #:[id number] : 1935 87 From: Palak Reyes MD PCP: Dr. Bernice Aquino MD Status:ADM IN Discharge Instructions Diet Discharge Diet: Light diet - advance as tolerated Activity Discharge Activity: - (Increase activity tolerated) Follow Up Care Test Results: Test results from this visit will be discussed in further detail at your follow-up appointment, if applicable. Discharge Plan Admission Admit Date/Time: 02/06/23 14:33 Primary Reason for Your Visit: Nausea, diarrhea Attending Provider: Palak Reyes Primary Care Provider: Bernice Aquino Consulting Providers: Kevin Delacruz Instructions Patient Instructions: ED Gastroenteritis, Viral (Adult) Additional Instructions / Restrictions: DISCHARGE INSTRUCTIONS PLEASE READ *Please take this with you to your next doctors appointment* -Given your blood pressure has been well controlled on metoprolol only will discharge with instructions to continue metoprolol and hold your other blood pressure medications. Would advise monitoring your blood pressure daily and logging this as these will likely need to be added back with time. Would not resume your losartan?hydrochlorothiazide until having repeat laboratory evaluation and discussing with your primary care physician -Advance your diet as tolerated, will be important to stay hydrated as well -Would recommend lab work (BMP) to check your kidney function in 2 to 3 days through your primary care physician's office. Please call their office upon discharge to obtain order for lab work. -Please call your primary care provider's office upon discharge to schedule a hospital follow up within 1 week. -For any concerning signs or symptoms please call 911 or proceed to the nearest emergency department Discharge Orders/Prescriptions Prescriptions: Continued ursodiol 500 mg tablet 500 mg PO BID potassium gluconate 600 mg (99 mg) tablet 600 mg (99 mg) tablet 600 mg PO DAILY cholecalciferol (vitamin D3) 125 mcg (5,000 unit) capsule 125 mcg PO DAILY pantoprazole 20 mg tablet,delayed release (DR/EC) 20 mg PO DAILY (DME) Handicap Rubyard See Rx Instructions .Route .MEDSUPPLY Qty: 1 0RF Rx Instructions: Expires: 5 years Dx: debility sisfbktf-gjr-VO-lycopen-lutein 1 EACH tablet 1 ea PO DAILY Patient Comments: supplement aspirin 81 MG tablet,chewable 81 mg PO DAILY@0800 atorvastatin 80 mg tablet 80 mg PO QHS Qty: 90 3RF metoprolol tartrate 50 mg tablet 50 mg PO BID Qty: 180 3RF Held amlodipine 5 mg tablet 5 mg PO DAILY Hold Instructions: Resume on 02/12/23. losartan-hydrochlorothiazide 50-12.5 mg tablet See Rx Instructions .ROUTE .COMPLEX Qty: 90 3RF Hold Instructions: Resume on 02/20/23. Would discuss with your primary care physician optimal timing for resuming this Dose Instruction: TAKE 1 TABLET DAILY Rx Instructions: TAKE 1 TABLET DAILY isosorbide mononitrate 60 mg tablet extended release 24 hr 60 mg PO QAM Qty: 90 3RF Hold Instructions: Resume on 02/13/23. Referrals / Follow Up: Bernice Aquino MD [Primary Care Provider] - Within 1 Week Disposition Disposition (needs filled in before D/C Order can be placed): Home, Self Care 02/08/23 1328<Electronically signed by Palak Reyes MD>Palak Reyes MD CC: Dr. Kevin Delacruz DO; Dr. Bernice Aquino MD ~ Signed [facility] Work Phone: 1(628) 986-780911-30-2023 Progress note Author Palak Reyes [facility] February 07, 2023 9:58am Note Date/Time February 07, 2023 9:58am [facility] Medical Records Department [address] [place] [address] Progress Note - Hospitalist 02/07/23 0953 MR#: [id number] Acct: [id number] Name: SHELDON JOHNSON Krish Rep #:[id number] : 1935 87 From: Palak Reyes MD PCP: Dr. Bernice Aquino MD Status:ADM IN Location: [place] [address] Reason for Visit Reason for Visit: Diagnoses Dehydration (02/06/23) Acute kidney failure, unspecified (02/06/23) Diarrhea, unspecified (02/06/23) Subjective Subjective Had 2 episodes of diarrhea, did have a little bit of spinning when he turned in bed a couple times, still feels a little bit weak overall Objective Data Objective Data Vital Signs: Vital Signs Temp Pulse Resp BP Pulse Ox O2 Del Method 97.1 F L 78 16 111/43 L 97 Room Air 02/07/23 09:47 02/07/23 09:47 02/07/23 09:47 02/07/23 09:47 02/07/23 09:47 02/07/23 09:47 Oxygen Delivery Method Room Air Weight: 69.2 kg Body Mass Index (BMI) 21.9 Intake & Output: Intake and Output for Last 24 Hours 02/05/23 02/06/23 02/07/23 23:59 23:59 23:59 Intake Total 1000 / 1120 240 / 240 Balance 1000 / 1120 240 / 240 Lab / Micro Data 02/07/23 07:00 02/07/23 07:00 Labs: Laboratory Results - last 24 hr 02/06/23 12:49: WBC 11.6 H, RBC 5.47, Hgb 16.6 H, Hct 51.2, MCV 93.6, MCH 30.3, MCHC 32.4, RDW Std Deviation 47.1 H, RDW Coeff of Chloe 13.6, Plt Count 225, MPV 9.9, Immature Gran % (Auto) 0.300, Neut % (Auto) 57.7, Lymph % (Auto) 32.0, Willacy% (Auto) 9.8, Eos % (Auto) 0.1, Baso % (Auto) 0.1, Absolute Neuts (auto) 6.7, Absolute Lymphs (auto) 3.73, Nucleated RBC % 0, Sodium 139, Potassium 3.8, Chloride 111 H, Carbon Dioxide 21.0, Anion Gap 7, BUN 72 H, Creatinine 2.99 H, Est GFR (MDRD) Af Amer 26 L, Est GFR (MDRD) Non-Af 21 L, BUN/Creatinine Ratio 24.1 H, Glucose 143 H, Calcium 9.9, Total Bilirubin 0.70, AST 21, ALT 33, Alkaline Phosphatase 108, Total Protein 7.8, Albumin 3.7, Globulin 4.1, Albumin/Globulin Ratio 0.9, Lipase 25 02/06/23 14:00: Urine Color Yellow, Urine Clarity Clear, Urine pH 5.0, Ur Specific [place] 1.025, Urine Protein 30 H, Urine Glucose (UA) Normal, Urine Ketones 5 H, Urine Occult Blood 10 H, Urine Nitrite Negative, Urine Bilirubin Negative, Urine Urobilinogen Normal, Ur Leukocyte Esterase Negative, Urine RBC 0-5 SEEN, Urine WBC 0 SEEN, Ur Squamous Epith Cells 0-5 SEEN, Urine Bacteria 1+,Hyaline Casts 5-10 SEEN, Coarse Granular Casts 0-5 SEEN, Urine Mucus 0 SEEN, Ur Random Sodium 14, Urine Creatinine 325.00 02/06/23 15:18: Magnesium 2.2, Troponin I High Sens 27 02/07/23 07:00: WBC 12.1 H, RBC 4.69, Hgb 14.4, Hct 44.1, MCV 94.0, MCH 30.7, MCHC 32.7, RDW Std Deviation 47.5 H, RDW Coeff of Chloe 13.7, Plt Count 183, MPV 10.5, Sodium 139, Potassium 3.9, Chloride 111 H, Carbon Dioxide 22.0, Anion Gap 6, BUN 84 H, Creatinine 3.25 H, Estim Creat Clear Calc 15.97, Est GFR (MDRD) Af Amer 23 L, Est GFR (MDRD) Non-Af 19 L, BUN/Creatinine Ratio 25.8 H, Glucose 86, Calcium 9.1, Magnesium 2.2 Micro: Microbiology 02/06/23 12:49 Nasal Secretion SARS-CoV-2 & FLU Antigen (Rapid) - Final Radiography Diagnostic Testing: Radiology Impression Brain CT 02/06/23 12:15 IMPRESSION: No acute intracranial process. Electronically Signed: Sam Rocha MD at 13:55 EST , Chest X-Ray 02/06/23 12:15 IMPRESSION: No radiographic evidence of acute cardiopulmonary disease. Electronically Signed: Sam Rocha MD at 13:07 EST , Renal Ultrasound 02/06/23 14:38 IMPRESSION: Left renal cyst. Electronically Signed: Jb Rosales DO at 20:07 EST Reading Location ID and State: [facility] / [place] Tel [phone], Service support , Physical Exam Narrative General: Alert, oriented, no apparent distress HEENT: Atraumatic, normocephalic Eyes: extraocular movements grossly intact Neck: Supple Respiratory: normal respiratory effort Cardiovascular: no edema appreciated GI: Soft, nontender, nondistended, no rebound, guarding, rigidity Extremities: Moving all extremities Neuro: No overt focal neurological deficits Psych: Cooperative Assessment & Plan Assessment/Plan (1) Acute kidney injury: (2) Diarrhea: (3) Acute dehydration: PLAN: Plan Patient is an 87-year-old male who presented to [facility] ED on02/06/2023 with worsening weakness and GI symptoms. 1. Generalized weakness, nausea/vomiting/diarrhea, dehydration, suspected orthostatic hypotension Most likely cause seems to be a viral gastroenteritis, leading to fairly significant diarrhea with nausea and vomiting, poor p.o. intake and dehydration. Reported intermittent shortness of breath over this timeframe, but no cough or sputum production, no fevers or chills. Chest x-ray nonacute. UA noninfectious. Considered an atypical presentation of ACS given history of ischemic cardiomyopathy with CAD as noted below, however EKG in ED showed no ischemic changes, initial troponin negative. ? Admit under inpatient status to PCU. Stool PCR ordered. S/p 1 L of IV fluidsin the ED with improvement and blood pressure and patient's general weakness; encouraged p.o. intake, could consider supplementing with further IV fluids as needed. Follow-up daily labs. Holding home antihypertensive medications as noted below. PT/OT/case management consulted; patient lives at home with his , reports no issues taking care of himself at home until this recent illness. -02/07: Awaiting enteric panel, PT/OT. Reported some spinning sensation when heturns over in bed but overall feels he is improving and diarrhea is decreasing. Continue to optimize. Will be gently hydrating 2. 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 Baseline creatinine 1.4-1.8. Most likely prerenal in setting of volume depletion as noted above. Home losartan and hydrochlorothiazide also contributing to worsening TRE. Patient reports good urine output until last few days, minimal urine output since then. Has history of BPH with frequent nocturia, states this has been stable for last few years. ? Follow-up a.m. BMP. Urine sodium and creatinine ordered to calculate FeNa. Renal/bladder ultrasound ordered to rule out postobstructive etiology. Monitor urine output. -02/07: Kidney function worsened again today, added additional urine studies, renal ultrasound without obstruction, will give gentle hydration. 3. Ischemic cardiomyopathy, history of CAD s/p CABG x 5 (2001), history of inferior MT, nonrheumatic mitral valve insufficiency, secondary pulmonary hypertension Last echo from 11/2019 showed an EF of 40%, hypokinesis in several areas around the inferior/septal region of the heart, mild diastolic function. Follows cardiology, last office visit was in 05/2022. No significant functional status changes noted at that time, was continued on home home medications for aggressive medical management. Was noted on that office visit note that plan was to possibly repeat echo at his next office visit. ? Will repeat echo at this time. Have low concern for cardiac etiology causing acute symptoms as noted above, but given known heart dysfunction seems prudent to reassess his cardiac function at this time. Continue home aspirin, atorvastatin. Continue home Lopressor, otherwise hold home antihypertensives asnoted below given TRE and suspected orthostatic hypotension, restart as able. -02/07: Will be gently hydrating, no obstruction, kidney function worsened Chronic medical conditions: ? Hypertension, hyperlipidemia: Holding home amlodipine, losartan, isosorbide mononitrate for now, restart as able. Okay to continue home Lopressor. Continue home atorvastatin. ? History of paroxysmal atrial fibrillation: Noted on cardiology office note from 05/2022. Not on anticoagulation, seems that he had a few minor episodes that have not recurred. EKG showed normal sinus rhythm on admit. Monitor. Continue home Lopressor. ? GERD: Continue home PPI. ? Hypothyroidism: Continue home Synthroid. ? 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 ? History of partial colectomy ? History of cholecystectomy DVT prophylaxis: Heparin subcu CODE STATUS: Full code, verified Expected disposition: Home, 2 to 3 days Total clinical time spent by myself addressing the patient's medical issues, reviewing all the data, and collaborating with patient's care team: 35 minutes. Charges/Coding Visit Charges Inpatient E&M: 48054 Subs Hosp L2 02/07/23 0958 <Electronically signed by Palak Reyes MD> Cosigner Signature (if applicable): CC: ~ Signed [facility] Work Phone: 1(402) 171-101511-30-2023 History and physical note Author Kevin Delacruz [facility] February 06, 2023 10:58pm Note Date/Time February 06, 2023 2:19pm [facility] Medical Records Department [address] [facility] [place] [address] H&P Exam - Hospitalist 02/06/23 1412 MR#: [id number] Acct: [id number] Name: SHELDON JOHNSON Rep #:[id number] : 1935 87 From: Kevin pang DO PCP: Dr. Bernice Aquino MD Status:ADM [facility] - General General Date of Admission: 02/06/23 Date of Service: 02/06/23 Chief Complaint: Generalized weakness, diarrhea, dehydration HPI Narrative SHELDON JOHNSON, is a 87 M who presented to [facility] ED on 02/06/2023 for worsening generalized weakness, nausea/vomiting/diarrhea and dehydration. Patient seen at bedside the ED, present. Patient comfortablybed, conversing normally, no acute distress. Patient states that his energy level feels much improved after receiving IV fluids in the ED. Patient's states that he looks much improved after IV fluids. Patient lives at home with his , has been very functional around the home until the last few days. Over that timeframe he has had fairly severe diarrhea, up to 10-15 bowel movements per day. Last bowel movement was this morning prior to coming to the ED. Has also had nausea with several doses of vomiting and has had minimal p.o.intake. Has had worsening weakness to the point where it has been difficult forhim to get out of bed and walk around. Also reports significant dizziness/lightheadedness when going from sitting to standing and with moving tocertain positions while laying in bed. Patient has been taking all home medications as prescribed. Has not checked his blood pressure at home over the past few days. Patient typically has good urine output but noticeably has had minimal urine output over the past few days. Does have history of BPH, had a TURP procedure done for this a few years ago. Reports fairly frequent nocturia at baseline, which has been stable for him. He otherwise denies any fevers or chills or chest pain. Patient does report intermittent shortness of breath but has difficulty characterizing the shortness of breath. He currently denies any shortness of breath or difficulty breathing. He denies any significant abdominal pain or discomfort. No other acute concerns at this time. [facility] Medical History (Updated 02/06/23 @ 15:21 by Joy Brewer) Antimitochondrial antibody positive Atherosclerosis of coronary artery of [place] heart without angina pectoris Atrial fibrillation BPH (benign prostatic hyperplasia) Cardiomyopathy, ischemic Carotid artery stenosis Cirrhosis Colon polyp Congestive heart failure (CHF) Essential hypertension Former smoker Gastritis and duodenitis GERD (gastroesophageal reflux disease) History of left heart catheterization (LHC) (~12/25/19) Hyperlipidemia Hypertension Hypothyroidism Impaired fasting blood sugar Kidney stones Myocardial infarct Nonrheumatic mitral (valve) insufficiency Nonrheumatic mitral valve prolapse Old inferior wall myocardial infarction Paroxysmal atrial fibrillation PVD (peripheral vascular disease) Secondary pulmonary arterial hypertension Type 2 diabetes mellitus without complications Umbilical hernia Home Medications wmexygre-fhy-piqna acid 0.4 mg-lycopene 300 mcg-lutein 250 mcg tablet 1 ea PO DAILY supplement 09/04/13 [History Last Taken Unknown] aspirin 81 mg chewable tablet 81 mg PO DAILY@0800 prevention 08/30/14 [History Last Taken 12/25/19] ursodiol 500 mg tablet 500 mg PO BID bladder 08/07/18 [History Last Taken 02/05/23] potassium gluconate 600 mg (99 mg) tablet 600 mg PO DAILY supplement 12/07/19 [History Last Taken 02/05/23] cholecalciferol (vitamin D3) 125 mcg (5,000 unit) capsule 125 mcg PO DAILY supplelment 09/09/20 [History Last Taken Unknown] atorvastatin 80 mg tablet 80 mg PO QHS cholestrol #90 tabs 11/21/20 [Rx Last Taken Unknown] pantoprazole 20 mg tablet,delayed release 20 mg PO DAILY decrease acid 03/31/21 [History Last Taken 02/06/23] Handicap Placard #1 ea 10/05/21 [Rx Last Taken Unknown] losartan 50 mg-hydrochlorothiazide 12.5 mg tablet See Rx Instructions .Route .COMPLEX blood pressure #90 tabs 02/19/22 [Rx Last Taken 02/06/23] isosorbide mononitrate 60 mg tablet,extended release 24 hr 60 mg PO QAM heart #90 tabs 03/30/22 [Rx Last Taken 02/05/23] metoprolol tartrate 50 mg tablet 50 mg PO BID heart #180 tabs 07/19/22 [Rx Last Taken 02/05/23] amlodipine 5 mg tablet 5 mg PO DAILY blood pressure 02/06/23 [History Last Taken 02/05/23] Allergy/AdvReac Type Severity Reaction Status Date / Time No Known Allergies Allergy Verified 02/06/23 12:01 Family History Brother Colon cancer Myocardial infarction Hypertension Hyperlipidemia Heavy alcohol use Sister Hypertension Hyperlipidemia Mother Diabetes Unknown Heart disease Kidney disease Surgical History (Updated 02/06/23 @ 15:21 by Joy Brewer) H/O cataract extraction H/O coronary artery bypass surgery History of colectomy History of coronary artery stent placement History of herniorrhaphy History of partial colectomy Hx of cholecystectomy S/P TURP Social History Smoking Status: Former smoker how long ago did patient quit smokin years ago alcohol intake: never caffeine: Yes Type: coffee Number of servings: 1 ROS Constitutional Constitutional: Reports fatigue, malaise and weakness; Denies chills or fever(s) Eyes Eyes: Denies change in vision Cardiovascular Cardiovascular: Reports lightheadedness; Denies chest pain, dyspnea on exertion,edema, orthopnea or rapid heart rate Respiratory/Chest Respiratory/Chest: Reports shortness of breath at rest; Denies cough or wheezing Gastrointestinal Gastrointestinal: Reports diarrhea, nausea and vomiting; Denies abdominal pain or constipation Genitourinary Genitourinary: Denies dysuria Musculoskeletal Musculoskeletal: Denies arthralgias or back pain Neurologic Neurologic: Reports dizziness; Denies confusion, focal weakness, headache(s), numbness or paresthesias Vital Signs Vital Signs Vital Signs: 02/06/23 11:59 02/06/23 11:59 Temperature 97.2 F L Temperature Source Temporal Pulse Rate 85 Respiratory Rate 16 Respiratory Effort Normal Non-Labored Respiratory Pattern Normal Blood Pressure 142/90 H Blood Pressure Mean 107 Pulse Ox 98 Oxygen Delivery Method Room Air Physical Exam Const alert, oriented x3, no apparent distress and average body habitus Constitutional Narrative: Pleasant elderly male, sitting comfortably in bed, conversing normally, no acutedistress. General Appearance: cooperative and comfortable HEENT normocephalic, head/scalp atraumatic, hearing grossly normal bilaterally, nasal mucous membranes and turbinates normal and moist oral mucous membranes Eyes PERRL, EOMs intact bilaterally and conjunctivae normal Neck full ROM, no lymphadenopathy and supple Lymph Lymphatic: no lymphadenopathy noted Chest inspection of chest normal Resp normal respiratory effort, normal air movement, no use of accessory muscles and clear to auscultation bilaterally Cardio regular rate, regular rhythm, no murmurs and peripheral pulses 2+ throughout GI normal to inspection, nondistended, normoactive bowel sounds, soft to palpation,non-tender and non-distended Back/Spine normal ROM Extremity normal to inspection, full ROM and no pedal edema Skin no rashes or lesions noted Neuro No moves all extremities and No no focal motor deficits Speech: speech normal Psych mental status grossly normal Results Lab / Micro Data 02/06/23 12:49 02/06/23 12:49 Labs: Laboratory Results - last 24 hr 02/06/23 12:49: WBC 11.6 H, RBC 5.47, Hgb 16.6 H, Hct 51.2, MCV 93.6, MCH 30.3, MCHC 32.4, RDW Std Deviation 47.1 H, RDW Coeff of Chloe 13.6, Plt Count 225, MPV 9.9, Immature Gran % (Auto) 0.300, Neut % (Auto) 57.7, Lymph % (Auto) 32.0, Willacy% (Auto) 9.8, Eos % (Auto) 0.1, Baso % (Auto) 0.1, Absolute Neuts (auto) 6.7, Absolute Lymphs (auto) 3.73, Nucleated RBC % 0, Sodium 139, Potassium 3.8, Chloride 111 H, Carbon Dioxide 21.0, Anion Gap 7, BUN 72 H, Creatinine 2.99 H, Est GFR (MDRD) Af Amer 26 L, Est GFR (MDRD) Non-Af 21 L, BUN/Creatinine Ratio 24.1 H, Glucose 143 H, Calcium 9.9, Total Bilirubin 0.70, AST 21, ALT 33, Alkaline Phosphatase 108, Total Protein 7.8, Albumin 3.7, Globulin 4.1, Albumin/Globulin Ratio 0.9, Lipase 25 Micro: Microbiology 02/06/23 12:49 Nasal Secretion SARS-CoV-2 & FLU Antigen (Rapid) - Final Imagaing Radiology Impression Brain CT 02/06/23 12:15 IMPRESSION: No acute intracranial process. Electronically Signed: Sam Rocha MD at 13:55 EST , Chest X-Ray 02/06/23 12:15 IMPRESSION: No radiographic evidence of acute cardiopulmonary disease. Electronically Signed: Sam Rocha MD at 13:07 EST , Assessment & Plan Assessment/Plan (1) Acute kidney injury: (2) Diarrhea: (3) Acute dehydration: PLAN: Plan Patient is an 87-year-old male who presented to [facility] ED on02/06/2023 with worsening weakness and GI symptoms. 1. Generalized weakness, nausea/vomiting/diarrhea, dehydration, suspected orthostatic hypotension Most likely cause seems to be a viral gastroenteritis, leading to fairly significant diarrhea with nausea and vomiting, poor p.o. intake and dehydration. Reported intermittent shortness of breath over this timeframe, but no cough or sputum production, no fevers or chills. Chest x-ray nonacute. UA noninfectious. Considered an atypical presentation of ACS given history of ischemic cardiomyopathy with CAD as noted below, however EKG in ED showed no ischemic changes, initial troponin negative. ? Admit under inpatient status to PCU. Stool PCR ordered. S/p 1 L of IV fluidsin the ED with improvement and blood pressure and patient's general weakness; encouraged p.o. intake, could consider supplementing with further IV fluids as needed. Follow-up daily labs. Holding home antihypertensive medications as noted below. PT/OT/case management consulted; patient lives at home with his , reports no issues taking care of himself at home until this recent illness. 2. 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 Baseline creatinine 1.4-1.8. Most likely prerenal in setting of volume depletion as noted above. Home losartan and hydrochlorothiazide also contributing to worsening TRE. Patient reports good urine output until last few days, minimal urine output since then. Has history of BPH with frequent nocturia, states this has been stable for last few years. ? Follow-up a.m. BMP. Urine sodium and creatinine ordered to calculate FeNa. Renal/bladder ultrasound ordered to rule out postobstructive etiology. Monitor urine output. 3. Ischemic cardiomyopathy, history of CAD s/p CABG x 5 (2001), history of inferior MT, nonrheumatic mitral valve insufficiency, secondary pulmonary hypertension Last echo from 11/2019 showed an EF of 40%, hypokinesis in several areas around the inferior/septal region of the heart, mild diastolic function. Follows cardiology, last office visit was in 05/2022. No significant functional status changes noted at that time, was continued on home home medications for aggressive medical management. Was noted on that office visit note that plan wasto possibly repeat echo at his next office visit. ? Will repeat echo at this time. Have low concern for cardiac etiology causing acute symptoms as noted above, but given known heart dysfunction seems prudent to reassess his cardiac function at this time. Continue home aspirin, atorvastatin. Continue home Lopressor, otherwise hold home antihypertensives asnoted below given TRE and suspected orthostatic hypotension, restart as able. Chronic medical conditions: ? Hypertension, hyperlipidemia: Holding home amlodipine, losartan, isosorbide mononitrate for now, restart as able. Okay to continue home Lopressor. Continue home atorvastatin. ? History of paroxysmal atrial fibrillation: Noted on cardiology office note from 05/2022. Not on anticoagulation, seems that he had a few minor episodes that have not recurred. EKG showed normal sinus rhythm on admit. Monitor. Continue home Lopressor. ? GERD: Continue home PPI. ? Hypothyroidism: Continue home Synthroid. ? 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 ? History of partial colectomy ? History of cholecystectomy DVT prophylaxis: Heparin subcu CODE STATUS: Full code, verified Expected disposition: Home, 2 to 3 days Total clinical time spent by myself addressing the patient's medical issues, reviewing all the data, and collaborating with patient's care team: 55 minutes. Charges/Coding Visit Charges Inpatient E&M: 59896 Init Hosp L2 02/06/23 5451 <Electronically signed by Kevin Delacruz DO> Cosigner Signature (if applicable): CC: Dr. Kevin Delacruz DO; Dr. Bernice Aquino MD~ Signed [facility] Work Phone: 1(120) 423-411511-29-2023 Discharge summary Author Maciel Garcia [facility] February 06, 2023 2:28pm Note Date/Time February 06, 2023 12:17pm [facility] Medical Records Department [address] [place] [address] Emergency Department Summary 02/06/23 MR#: [id number] Acct: [id number] Name: SHELDON JOHNSON Rep #:[id number] : 1935 87 From: David GAMING PCP: Dr. Bernice Aquino MD Status:REG ER Location: ED HPI <MEKHI Mooney - Last Filed: 02/06/23 14:20> History of Present Illness Chief Complaint: General Illness Narrative Narrative: Patient is an 87-year-old male with history of cardiomyopathy, CHF, hypertension, hyperlipidemia who presents to the emergency department for 3 to 4days of generalized weakness. Patient states has had nausea, vomiting, diarrheaover the last 3 to 4 days. He states has been getting these intermittent dizzy spells. He denies any chest pain or shortness of breath. Patient is here with her daughter. Patient denies any falls. Patient denies any fever or chills. Denies any blood in his stool or vomit. [facility] <MEKHI Mooney - Last Filed: 02/06/23 14:20> [facility] Medical History (Updated 02/06/23 @ 14:20 by MEKHI Mooney) Antimitochondrial antibody positive Atherosclerosis of coronary artery of [place] heart without angina pectoris BPH (benign prostatic hyperplasia) Cardiomyopathy, ischemic Carotid artery stenosis Colon polyp Essential hypertension Gastritis and duodenitis History of left heart catheterization (LHC) (~12/25/19) Hyperlipidemia Hypothyroidism Impaired fasting blood sugar Nonrheumatic mitral (valve) insufficiency Nonrheumatic mitral valve prolapse Old inferior wall myocardial infarction Paroxysmal atrial fibrillation PVD (peripheral vascular disease) Secondary pulmonary arterial hypertension Type 2 diabetes mellitus without complications Umbilical hernia Home Medications sogqzncw-uum-xsxem acid 0.4 mg-lycopene 300 mcg-lutein 250 mcg tablet 1 ea PO DAILY 09/04/13 [History Last Taken Unknown] aspirin 81 mg chewable tablet 81 mg PO DAILY@0800 08/30/14 [History Last Taken 12/25/19] ursodiol 500 mg tablet 500 mg PO BID 08/07/18 [History Last Taken 12/25/19] levothyroxine 25 mcg tablet 25 mcg PO DAILY 12/29/18 [History Last Taken Unknown] potassium gluconate 600 mg (99 mg) tablet 600 mg PO DAILY 12/07/19 [History Last Taken Unknown] cholecalciferol (vitamin D3) 125 mcg (5,000 unit) capsule 125 mcg PO DAILY 09/09/20 [History Last Taken Unknown] atorvastatin 80 mg tablet 80 mg PO QHS #90 tabs 11/21/20 [Rx Last Taken Unknown] pantoprazole 20 mg tablet,delayed release 20 mg PO DAILY 03/31/21 [History Last Taken Unknown] Handicap Placard #1 ea 10/05/21 [Rx Last Taken Unknown] losartan 50 mg-hydrochlorothiazide 12.5 mg tablet See Rx Instructions .Route .COMPLEX #90 tabs 02/19/22 [Rx Last Taken Unknown] isosorbide mononitrate 60 mg tablet,extended release 24 hr 60 mg PO QAM #90 tabs03/30/22 [Rx Last Taken Unknown] metoprolol tartrate 50 mg tablet 50 mg PO BID #180 tabs 07/19/22 [Rx Last Taken Unknown] amlodipine 5 mg tablet 5 mg PO QDAY #90 tabs 11/05/22 [Rx Last Taken Unknown] Allergy/AdvReac Type Severity Reaction Status Date / Time No Known Allergies Allergy Verified 02/06/23 12:01 Family History Brother Colon cancer Myocardial infarction Hypertension Hyperlipidemia Heavy alcohol use Sister Hypertension Hyperlipidemia Mother Diabetes Unknown Heart disease Kidney disease Surgical History H/O cataract extraction H/O coronary artery bypass surgery History of colectomy History of herniorrhaphy History of partial colectomy Hx of cholecystectomy S/P TURP Social History Smoking Status: Former smoker how long ago did patient quit smokin years ago alcohol intake: never caffeine: Yes Type: coffee Number of servings: 1 ROS <MEKIH Mooney - Last Filed: 02/06/23 14:20> ROS ED ROS Narrative Constitutional: Negative for fever, chills, weight loss. Positive for weakness Eyes: Negative for vision loss, vision change, double vision ENT: Negative for any sore throat, ear pain, congestion Cardiovascular: Negative for any chest pain, tightness, palpitations Respiratory: Negative for any cough, sputum production, hemoptysis, dyspnea, dyspnea on exertion, orthopnea Gastrointestinal: Negative for any abdominal pain, constipation, blood in stool,blood in vomit. Positive for nausea, vomiting, diarrhea : Negative for any urinary frequency, dysuria, retention, blood in urine Muscle skeletal: Negative for any arthralgias, neck pain, back pain. Positive generalized myalgias Neurological: Negative for any headache, syncope, numbness or tingling. Positive for dizziness Skin: Negative for any rashes, lumps, itching, abrasions, lacerations Psychiatric: Negative for any depression, anxiety, stress, suicidal ideation, homicidal ideation Hematologic: Negative for any easy bruising, excessive bruising, easy bleeding Allergies: Negative for any eczema, hives, rash EXAM <MEKHI Mooney - Last Filed: 02/06/23 14:20> Physical Exam Narrative Exam Narrative: Vital signs reviewed. Patient is alert and orient x4, acting appropriate. Vital signs are stable. Patient does have some shaking to his body however he states this is not normal however the daughter states this does happen sometimes. HEET: Head normocephalic atraumatic, TMs clear bilaterally. Posterior pharynx is clear, dry mucous membranes. Nares clear bilaterally. Neck: Supple with no lymphadenopathy or tenderness. No signs of meningismus. Cardiac: Regular rate and rhythm no murmurs gallops or rubs, equal peripheral pulses bilaterally. Respiratory: Lungs clear to auscultation bilaterally. No chest tenderness. Abdomen: Soft, nontender, nondistended. No abdominal bruit or pulsatile masses. No hepatosplenomegaly Extremities: No peripheral edema, no signs of gross trauma or deformity. Activefull range of motion of all extremities. Neuro: Cranial nerves II through XII intact, no focal neurological deficits. When the patient is speaking, I do notice that the left side of his mouth is drooping, I spoke with the patient, the patient's daughter, she states that doeshappen sometimes however it is more than usual. However they are unsure when this started. Skin: Clean dry and intact with no rash, purpura, petechiae, vesicles or pustules. Backs/flank: No CVA tenderness, no midline spinal tenderness, no deformity. Psych: Normal mood and affect. No SI, HI or acute psychosis. Const Vital Signs: 02/06/23 11:59 02/06/23 11:59 Temperature 97.2 F L Temperature Source Temporal Pulse Rate 85 Respiratory Rate 16 Respiratory Effort Normal Non-Labored Respiratory Pattern Normal Blood Pressure 142/90 H Blood Pressure Mean 107 Pulse Ox 98 Oxygen Delivery Method Room Air Positive well nourished and well developed General Appearance ED: well developed <Dr. Maciel Garcia MD - Last Filed: 02/06/23 14:28> Physical Exam Const Vital Signs: 02/06/23 11:59 02/06/23 11:59 Temperature 97.2 F L Temperature Source Temporal Pulse Rate 85 Respiratory Rate 16 Respiratory Effort Normal Non-Labored Respiratory Pattern Normal Blood Pressure 142/90 H Blood Pressure Mean 107 Pulse Ox 98 Oxygen Delivery Method Room Air MDM <MEKHI Mooney - Last Filed: 02/06/23 14:20> MDM Lab Data Labs: Laboratory Results - last 24 hr 02/06/23 12:49 WBC 11.6 H RBC 5.47 Hgb 16.6 H Hct 51.2 MCV 93.6 MCH 30.3 MCHC 32.4 RDW Std Deviation 47.1 H RDW Coeff of Chloe 13.6 Plt Count 225 MPV 9.9 Immature Gran % (Auto) 0.300 Neut % (Auto) 57.7 Lymph % (Auto) 32.0 Willacy % (Auto) 9.8 Eos % (Auto) 0.1 Baso % (Auto) 0.1 Absolute Neuts (auto) 6.7 Absolute Lymphs (auto) 3.73 Nucleated RBC % 0 Sodium 139 Potassium 3.8 Chloride 111 H Carbon Dioxide 21.0 Anion Gap 7 BUN 72 H Creatinine 2.99 H Est GFR (MDRD) Af Amer 26 L Est GFR (MDRD) Non-Af 21 L BUN/Creatinine Ratio 24.1 H Glucose 143 H Calcium 9.9 Total Bilirubin 0.70 AST 21 ALT 33 Alkaline Phosphatase 108 Total Protein 7.8 Albumin 3.7 Globulin 4.1 Albumin/Globulin Ratio 0.9 Lipase 25 Radiography Diagnostic Testing: Clinical Impression(s) from Imaging Studies Brain CT 02/06/23 12:15 IMPRESSION: No acute intracranial process. Electronically Signed: Sam Rocha MD at 13:55 EST Reading Location ID and State: [facility] / [place] Tel , Service support , Chest X-Ray 02/06/23 12:15 IMPRESSION: No radiographic evidence of acute cardiopulmonary disease. Electronically Signed: Sam Rocha MD at 13:07 EST , EKG EKG shows right bundle branch block rate of 75: Attestation: I personally reviewed and interpreted this EKG as follows: Comments: EKG shows a right bundle branch block, rate of 75 bpm, NE interval 234 ms, QRS duration 166 ms, no acute ST elevation, no acute infarct noted. Treatment and Re-Evaluation :: Patient is in no obvious respiratory distress, patient's vital signs are stable. Patient presents to the emergency department for weakness, nausea, vomiting, diarrhea, generalized dizziness. Patient differential diagnosis includes viral infection such as influenza or COVID, UTI, pneumonia. Patient received a CT scan of the brain secondary to the dizziness. Basic laboratory values will be completed concerning for any anemia, leukocytosis, electrolyte abnormality. Patient denies any chest pain or shortness of breath. Patient received IV fluids, Zofran. Patient responded well to fluids. Patient still having difficulty getting a urine sample. Patient CT scan of the brain was unremarkable, patient's chest x-ray showed no acute process. Patient's laboratory values show slight leukocytosis white blood count 11.6, patient is hemoconcentrated with a hemoglobin of 16.6, patient's chemistries show acute kidney injury with a BUN of72, creatinine 2.99, patient creatinine on May 18, 2022 was 1.41, this is a significant increase. Glucose 143. Patient's COVID-19, influenza was negative. Patient will need to be admitted to the hospital secondary to acute kidney injury, dehydration. <Dr. Maciel Garcia MD - Last Filed: 02/06/23 14:28> [facility] Narrative Medical decision making narrative: I have personally performed a face to face assessment of the patient and have reviewed the GERTRUDE Note. I performed a substantive portion of the visit including all aspects of the following. My torres findings include: History is 87-year-old male with nausea, vomiting and diarrhea since Saturday. Denies any recent hospitalization. No recent antibiotics. Denies any hematemesis or melena. Feels dehydrated and lightheaded. No significant abdominal pain. Exam is [well-appearing 87-year-old male. Vital signs are stable and afebrile. Initial blood pressure 142/90. He does not look septic or toxic. HEENT exam mildly dry mucous membranes. Atraumatic. Pupils round reactive light. Lungs clear to auscultation bilaterally. Heart regular rhythm rate about 85 no murmur. Chest wall and ribs nontender. Abdomen soft nontender. No peritoneal signs. No distention. Moving all 4 extremities. Nontender. No edema. Neurologically is awake and alert.] Medical Decision Making [87-year-old gentleman with nausea, vomiting diarrhea for 3 days. Suspect dehydration. May be a viral syndrome. He has been on no recent antibiotics. No recent hospitalization. No history of C. difficile. Screening labs. IV fluids. His kidney function returned with acute kidney injury with a creatinine of 2.99. He will be admitted to the hospital. We have already spoken to hospice.] Other additions or changes: [None] History & Record Review Discussion w/independent historian: Patient and Family Additional record(s) reviewed:: Prior inpatient record, Prior outpatient record, Prior ED visit and Prior labs Lab Data Attestation: I reviewed the patient's lab results. Lab results narrative: BC shows a white count 9.6. H&H is 16 and 51. Platelets 225. Electrolytes show a gap of 7. BUN is 72 and creatinine 2.99 significantly different from his prior. Liver markable. Lipase is normal at 25. Labs: Laboratory Results - last 24 hr 02/06/23 12:49 WBC 11.6 H RBC 5.47 Hgb 16.6 H Hct 51.2 MCV 93.6 MCH 30.3 MCHC 32.4 RDW Std Deviation 47.1 H RDW Coeff of Chloe 13.6 Plt Count 225 MPV 9.9 Immature Gran % (Auto) 0.300 Neut % (Auto) 57.7 Lymph % (Auto) 32.0 [place] % (Auto) 9.8 Eos % (Auto) 0.1 Baso % (Auto) 0.1 Absolute Neuts (auto) 6.7 Absolute Lymphs (auto) 3.73 Nucleated RBC % 0 Sodium 139 Potassium 3.8 Chloride 111 H Carbon Dioxide 21.0 Anion Gap 7 BUN 72 H Creatinine 2.99 H Est GFR (MDRD) Af Amer 26 L Est GFR (MDRD) Non-Af 21 L BUN/Creatinine Ratio 24.1 H Glucose 143 H Calcium 9.9 Total Bilirubin 0.70 AST 21 ALT 33 Alkaline Phosphatase 108 Total Protein 7.8 Albumin 3.7 Globulin 4.1 Albumin/Globulin Ratio 0.9 Lipase 25 Radiography Chest X-Ray - ED: 1 View, Read by ED Physician, Read by Radiologist, Heart, Lungs, Mediastinum, Bony Structures, No Acute Disease and Chronic Changes Diagnostic Testing: Clinical Impression(s) from Imaging Studies Brain CT 02/06/23 12:15 IMPRESSION: No acute intracranial process. Electronically Signed: Sam Rocha MD at 13:55 EST , Chest X-Ray 02/06/23 12:15 IMPRESSION: No radiographic evidence of acute cardiopulmonary disease. Electronically Signed: Sam Rocha MD at 13:07 EST , Chest x-ray, portable, single view, interpreted both by myself and the radiologist shows no acute abnormality. Normal cardiac silhouette. Normal mediastinum. Discharge Plan Dx/Rx/DC Orders Clinical Impression: Acute kidney injury, Acute dehydration, Dizziness, Diarrhea Disposition Disposition: [facility] What to do if you have Problems For any increased pain, shortness of breath, bleeding, nausea or vomiting, chest pain, or any unexpected problems, contact your Primary Care Provider. Call [facility] ([phone]) or report to the closest Emergency Room. Call 911 if necessary. 02/06/23 142 <Electronically signed by David GAMING> Cosigner Signature (if applicable): 02/06/231427 <Electronically signed by Maciel Garcia MD> CC: Dr. Bernice Aquino MD ~ Signed [facility] Work Phone: 1(219) 898-828811-29-2023 Discharge summary Author Maciel Garcia [facility] February 06, 2023 2:28pm Note Date/Time February 06, 2023 12:17pm [facility] Medical Records Department [address] [place] [id number] Emergency Department Summary 02/06/23 MR#: [id number] Acct: [id number] Name: SHELDON JOHNSON Krish Rep #:[id number] : 1935 87 From: David GAMING PCP: Dr. Bernice Aquino MD Status:REG ER Location: ED HPI <MEKHI Mooney - Last Filed: 02/06/23 14:20> History of Present Illness Chief Complaint: General Illness Narrative Narrative: Patient is an 87-year-old male with history of cardiomyopathy, CHF, hypertension, hyperlipidemia who presents to the emergency department for 3 to 4days of generalized weakness. Patient states has had nausea, vomiting, diarrheaover the last 3 to 4 days. He states has been getting these intermittent dizzy spells. He denies any chest pain or shortness of breath. Patient is here with her daughter. Patient denies any falls. Patient denies any fever or chills. Denies any blood in his stool or vomit. [facility] <MEKHI Mooney - Last Filed: 02/06/23 14:20> [facility] Medical History (Updated 02/06/23 @ 14:20 by MEKHI Mooney) Antimitochondrial antibody positive Atherosclerosis of coronary artery of [place] heart without angina pectoris BPH (benign prostatic hyperplasia) Cardiomyopathy, ischemic Carotid artery stenosis Colon polyp Essential hypertension Gastritis and duodenitis History of left heart catheterization (LHC) (~12/25/19) Hyperlipidemia Hypothyroidism Impaired fasting blood sugar Nonrheumatic mitral (valve) insufficiency Nonrheumatic mitral valve prolapse Old inferior wall myocardial infarction Paroxysmal atrial fibrillation PVD (peripheral vascular disease) Secondary pulmonary arterial hypertension Type 2 diabetes mellitus without complications Umbilical hernia Home Medications kknewuhf-ema-eyhem acid 0.4 mg-lycopene 300 mcg-lutein 250 mcg tablet 1 ea PO DAILY 09/04/13 [History Last Taken Unknown] aspirin 81 mg chewable tablet 81 mg PO DAILY@0800 08/30/14 [History Last Taken 12/25/19] ursodiol 500 mg tablet 500 mg PO BID 08/07/18 [History Last Taken 12/25/19] levothyroxine 25 mcg tablet 25 mcg PO DAILY 12/29/18 [History Last Taken Unknown] potassium gluconate 600 mg (99 mg) tablet 600 mg PO DAILY 12/07/19 [History Last Taken Unknown] cholecalciferol (vitamin D3) 125 mcg (5,000 unit) capsule 125 mcg PO DAILY 09/09/20 [History Last Taken Unknown] atorvastatin 80 mg tablet 80 mg PO QHS #90 tabs 11/21/20 [Rx Last Taken Unknown] pantoprazole 20 mg tablet,delayed release 20 mg PO DAILY 03/31/21 [History Last Taken Unknown] Handicap Placard #1 ea 10/05/21 [Rx Last Taken Unknown] losartan 50 mg-hydrochlorothiazide 12.5 mg tablet See Rx Instructions .Route .COMPLEX #90 tabs 02/19/22 [Rx Last Taken Unknown] isosorbide mononitrate 60 mg tablet,extended release 24 hr 60 mg PO QAM #90 tabs03/30/22 [Rx Last Taken Unknown] metoprolol tartrate 50 mg tablet 50 mg PO BID #180 tabs 07/19/22 [Rx Last Taken Unknown] amlodipine 5 mg tablet 5 mg PO QDAY #90 tabs 11/05/22 [Rx Last Taken Unknown] Allergy/AdvReac Type Severity Reaction Status Date / Time No Known Allergies Allergy Verified 02/06/23 12:01 Family History Brother Colon cancer Myocardial infarction Hypertension Hyperlipidemia Heavy alcohol use Sister Hypertension Hyperlipidemia Mother Diabetes Unknown Heart disease Kidney disease Surgical History H/O cataract extraction H/O coronary artery bypass surgery History of colectomy History of herniorrhaphy History of partial colectomy Hx of cholecystectomy S/P TURP Social History Smoking Status: Former smoker how long ago did patient quit smokin years ago alcohol intake: never caffeine: Yes Type: coffee Number of servings: 1 ROS <MEKHI Mooney - Last Filed: 02/06/23 14:20> ROS ED ROS Narrative Constitutional: Negative for fever, chills, weight loss. Positive for weakness Eyes: Negative for vision loss, vision change, double vision ENT: Negative for any sore throat, ear pain, congestion Cardiovascular: Negative for any chest pain, tightness, palpitations Respiratory: Negative for any cough, sputum production, hemoptysis, dyspnea, dyspnea on exertion, orthopnea Gastrointestinal: Negative for any abdominal pain, constipation, blood in stool,blood in vomit. Positive for nausea, vomiting, diarrhea : Negative for any urinary frequency, dysuria, retention, blood in urine Muscle skeletal: Negative for any arthralgias, neck pain, back pain. Positive generalized myalgias Neurological: Negative for any headache, syncope, numbness or tingling. Positive for dizziness Skin: Negative for any rashes, lumps, itching, abrasions, lacerations Psychiatric: Negative for any depression, anxiety, stress, suicidal ideation, homicidal ideation Hematologic: Negative for any easy bruising, excessive bruising, easy bleeding Allergies: Negative for any eczema, hives, rash EXAM <MEKHI Mooney - Last Filed: 02/06/23 14:20> Physical Exam Narrative Exam Narrative: Vital signs reviewed. Patient is alert and orient x4, acting appropriate. Vital signs are stable. Patient does have some shaking to his body however he states this is not normal however the daughter states this does happen sometimes. HEET: Head normocephalic atraumatic, TMs clear bilaterally. Posterior pharynx is clear, dry mucous membranes. Nares clear bilaterally. Neck: Supple with no lymphadenopathy or tenderness. No signs of meningismus. Cardiac: Regular rate and rhythm no murmurs gallops or rubs, equal peripheral pulses bilaterally. Respiratory: Lungs clear to auscultation bilaterally. No chest tenderness. Abdomen: Soft, nontender, nondistended. No abdominal bruit or pulsatile masses. No hepatosplenomegaly Extremities: No peripheral edema, no signs of gross trauma or deformity. Activefull range of motion of all extremities. Neuro: Cranial nerves II through XII intact, no focal neurological deficits. When the patient is speaking, I do notice that the left side of his mouth is drooping, I spoke with the patient, the patient's daughter, she states that doeshappen sometimes however it is more than usual. However they are unsure when this started. Skin: Clean dry and intact with no rash, purpura, petechiae, vesicles or pustules. Backs/flank: No CVA tenderness, no midline spinal tenderness, no deformity. Psych: Normal mood and affect. No SI, HI or acute psychosis. Const Vital Signs: 02/06/23 11:59 02/06/23 11:59 Temperature 97.2 F L Temperature Source Temporal Pulse Rate 85 Respiratory Rate 16 Respiratory Effort Normal Non-Labored Respiratory Pattern Normal Blood Pressure 142/90 H Blood Pressure Mean 107 Pulse Ox 98 Oxygen Delivery Method Room Air Positive well nourished and well developed General Appearance ED: well developed <Dr. Maciel Garcia MD - Last Filed: 02/06/23 14:28> Physical Exam Const Vital Signs: 02/06/23 11:59 02/06/23 11:59 Temperature 97.2 F L Temperature Source Temporal Pulse Rate 85 Respiratory Rate 16 Respiratory Effort Normal Non-Labored Respiratory Pattern Normal Blood Pressure 142/90 H Blood Pressure Mean 107 Pulse Ox 98 Oxygen Delivery Method Room Air MDM <MEKHI Mooney - Last Filed: 02/06/23 14:20> MDM Lab Data Labs: Laboratory Results - last 24 hr 02/06/23 12:49 WBC 11.6 H RBC 5.47 Hgb 16.6 H Hct 51.2 MCV 93.6 MCH 30.3 MCHC 32.4 RDW Std Deviation 47.1 H RDW Coeff of Chloe 13.6 Plt Count 225 MPV 9.9 Immature Gran % (Auto) 0.300 Neut % (Auto) 57.7 Lymph % (Auto) 32.0 Willacy % (Auto) 9.8 Eos % (Auto) 0.1 Baso % (Auto) 0.1 Absolute Neuts (auto) 6.7 Absolute Lymphs (auto) 3.73 Nucleated RBC % 0 Sodium 139 Potassium 3.8 Chloride 111 H Carbon Dioxide 21.0 Anion Gap 7 BUN 72 H Creatinine 2.99 H Est GFR (MDRD) Af Amer 26 L Est GFR (MDRD) Non-Af 21 L BUN/Creatinine Ratio 24.1 H Glucose 143 H Calcium 9.9 Total Bilirubin 0.70 AST 21 ALT 33 Alkaline Phosphatase 108 Total Protein 7.8 Albumin 3.7 Globulin 4.1 Albumin/Globulin Ratio 0.9 Lipase 25 Radiography Diagnostic Testing: Clinical Impression(s) from Imaging Studies Brain CT 02/06/23 12:15 IMPRESSION: No acute intracranial process. Electronically Signed: Sam Rocha MD at 13:55 EST Reading Location ID and State: [address] [place] [address] Tel , Service support , Chest X-Ray 02/06/23 12:15 IMPRESSION: No radiographic evidence of acute cardiopulmonary disease. Electronically Signed: Sam Rocha MD at 13:07 EST , EKG EKG shows right bundle branch block rate of 75: Attestation: I personally reviewed and interpreted this EKG as follows: Comments: EKG shows a right bundle branch block, rate of 75 bpm, NE interval 234 ms, QRS duration 166 ms, no acute ST elevation, no acute infarct noted. Treatment and Re-Evaluation :: Patient is in no obvious respiratory distress, patient's vital signs are stable. Patient presents to the emergency department for weakness, nausea, vomiting, diarrhea, generalized dizziness. Patient differential diagnosis includes viral infection such as influenza or COVID, UTI, pneumonia. Patient received a CT scan of the brain secondary to the dizziness. Basic laboratory values will be completed concerning for any anemia, leukocytosis, electrolyte abnormality. Patient denies any chest pain or shortness of breath. Patient received IV fluids, Zofran. Patient responded well to fluids. Patient still having difficulty getting a urine sample. Patient CT scan of the brain was unremarkable, patient's chest x-ray showed no acute process. Patient's laboratory values show slight leukocytosis white blood count 11.6, patient is hemoconcentrated with a hemoglobin of 16.6, patient's chemistries show acute kidney injury with a BUN of72, creatinine 2.99, patient creatinine on May 18, 2022 was 1.41, this is a significant increase. Glucose 143. Patient's COVID-19, influenza was negative. Patient will need to be admitted to the hospital secondary to acute kidney injury, dehydration. <Dr. Maciel Garcia MD - Last Filed: 02/06/23 14:28> [facility] Narrative Medical decision making narrative: I have personally performed a face to face assessment of the patient and have reviewed the GERTRUDE Note. I performed a substantive portion of the visit including all aspects of the following. My torres findings include: History is 87-year-old male with nausea, vomiting and diarrhea since Saturday. Denies any recent hospitalization. No recent antibiotics. Denies any hematemesis or melena. Feels dehydrated and lightheaded. No significant abdominal pain. Exam is [well-appearing 87-year-old male. Vital signs are stable and afebrile. Initial blood pressure 142/90. He does not look septic or toxic. HEENT exam mildly dry mucous membranes. Atraumatic. Pupils round reactive light. Lungs clear to auscultation bilaterally. Heart regular rhythm rate about 85 no murmur. Chest wall and ribs nontender. Abdomen soft nontender. No peritoneal signs. No distention. Moving all 4 extremities. Nontender. No edema. Neurologically is awake and alert.] Medical Decision Making [87-year-old gentleman with nausea, vomiting diarrhea for 3 days. Suspect dehydration. May be a viral syndrome. He has been on no recent antibiotics. No recent hospitalization. No history of C. difficile. Screening labs. IV fluids. His kidney function returned with acute kidney injury with a creatinine of 2.99. He will be admitted to the hospital. We have already spoken to hospice.] Other additions or changes: [None] History & Record Review Discussion w/independent historian: Patient and Family Additional record(s) reviewed:: Prior inpatient record, Prior outpatient record, Prior ED visit and Prior labs Lab Data Attestation: I reviewed the patient's lab results. Lab results narrative: BC shows a white count 9.6. H&H is 16 and 51. Platelets 225. Electrolytes show a gap of 7. BUN is 72 and creatinine 2.99 significantly different from his prior. Liver markable. Lipase is normal at 25. Labs: Laboratory Results - last 24 hr 02/06/23 12:49 WBC 11.6 H RBC 5.47 Hgb 16.6 H Hct 51.2 MCV 93.6 MCH 30.3 MCHC 32.4 RDW Std Deviation 47.1 H RDW Coeff of Chloe 13.6 Plt Count 225 MPV 9.9 Immature Gran % (Auto) 0.300 Neut % (Auto) 57.7 Lymph % (Auto) 32.0 Willacy % (Auto) 9.8 Eos % (Auto) 0.1 Baso % (Auto) 0.1 Absolute Neuts (auto) 6.7 Absolute Lymphs (auto) 3.73 Nucleated RBC % 0 Sodium 139 Potassium 3.8 Chloride 111 H Carbon Dioxide 21.0 Anion Gap 7 BUN 72 H Creatinine 2.99 H Est GFR (MDRD) Af Amer 26 L Est GFR (MDRD) Non-Af 21 L BUN/Creatinine Ratio 24.1 H Glucose 143 H Calcium 9.9 Total Bilirubin 0.70 AST 21 ALT 33 Alkaline Phosphatase 108 Total Protein 7.8 Albumin 3.7 Globulin 4.1 Albumin/Globulin Ratio 0.9 Lipase 25 Radiography Chest X-Ray - ED: 1 View, Read by ED Physician, Read by Radiologist, Heart, Lungs, Mediastinum, Bony Structures, No Acute Disease and Chronic Changes Diagnostic Testing: Clinical Impression(s) from Imaging Studies Brain CT 02/06/23 12:15 IMPRESSION: No acute intracranial process. Electronically Signed: Sam Rocha MD at 13:55 EST , Chest X-Ray 02/06/23 12:15 IMPRESSION: No radiographic evidence of acute cardiopulmonary disease. Electronically Signed: Sam Rocha MD at 13:07 EST , Chest x-ray, portable, single view, interpreted both by myself and the radiologist shows no acute abnormality. Normal cardiac silhouette. Normal mediastinum. Discharge Plan Dx/Rx/DC Orders Clinical Impression: Acute kidney injury, Acute dehydration, Dizziness, Diarrhea Disposition Disposition: Acute [facility] What to do if you have Problems For any increased pain, shortness of breath, bleeding, nausea or vomiting, chest pain, or any unexpected problems, contact your Primary Care Provider. Call [facility] ([phone]) or report to the closest Emergency Room. Call 911 if necessary. 02/06/23 142 <Electronically signed by David GAMING> Cosigner Signature (if applicable): 02/06/231427 <Electronically signed by Maciel Garcia MD> CC: Dr. Bernice Aquino MD ~ Signed [facility] Work Phone: 1(521) 310-560008-30-2023 Note ORIGINAL EXAMINATION: COMPLETE ABDOMINAL ULTRASOUND11/07/2022 9:15 [...] Sign Date: 11/07/2022 9:59:43 AM Ordering Provider: [facility]02-06-2023 Note ORIGINAL EXAMINATION: COMPLETE ABDOMINAL ULTRASOUND04/16/2022 7:50 [...] Sign Date: 04/16/2022 1:33:11 PM Ordering Provider: [facility]02-06-2023 Note ORIGINAL EXAMINATION: COMPLETE ABDOMINAL ULTRASOUND04/16/2022 7:50 [...] Sign Date: 04/16/2022 1:33:11 PM Ordering Provider: [facility] note Author Uli Griffith [facility] February 08, 2023 2:19pm Note Date/Time February 08, 2023 2 :19pm [facility] Medical Records Department [address] [place] [id number] Counseling Note - Pharmacy 02/08/23 1419 MR#: [id number] Acct: [id number] Name: SHELDON JOHNSON Rep #:[id number] : 1935 87 From: Uli Griffith PCP: Dr. Bernice Aquino MD Status:ADM [facility] Med Reconciliation Pharmacy Service has performed discharge medication reconciliation for this patient. The patient's discharge medication list was reviewed for discrepancies and discrepancies were resolved. Medications at Discharge Home Medications [id number] acid 0.4 mg-lycopene 300 mcg-lutein 250 mcg tablet 1 ea PO DAILY supplement 09/04/13 aspirin 81 mg chewable tablet 81 mg PO DAILY@0800 prevention 08/30/14 ursodiol 500 mg tablet 500 mg PO BID bladder 08/07/18 potassium gluconate 600 mg (99 mg) tablet 600 mg PO DAILY supplement 12/07/19 cholecalciferol (vitamin D3) 125 mcg (5,000 unit) capsule 125 mcg PO DAILY supplelment 09/09/20 atorvastatin 80 mg tablet 80 mg PO QHS cholestrol #90 tabs 11/21/20 pantoprazole 20 mg tablet,delayed release 20 mg PO DAILY decrease acid 03/31/21 Handicap Placard #1 ea 10/05/21 losartan 50 mg-hydrochlorothiazide 12.5 mg tablet See Rx Instructions .Route .COMPLEX blood pressure #90 tabs 02/19/22 isosorbide mononitrate 60 mg tablet,extended release 24 hr 60 mg PO QAM heart #90 tabs 03/30/22 metoprolol tartrate 50 mg tablet 50 mg PO BID heart #180 tabs 07/19/22 amlodipine 5 mg tablet 5 mg PO DAILY blood pressure 02/06/23 02/08/23 1419 <Electronically signed by Uli cruz> Date _ Uli Ho Signature (if applicable): Date CC: ~ Signed [facility] Work Phone: Evaluation + Plan note No data available for this section [facility] Evaluation noteNo assessment information available [facility] Work Phone: Evaluation note* Diagnosis Onset Date Resolution Status Essential hypertension acute Atherosclerosis of coronary artery of [place] 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 Work Phone: Evaluation note* Diagnosis Onset Date Resolution Status Essential hypertension acute Atherosclerosis of coronary artery of [place] heart without angina pectoris chronic Cardiomyopathy, ischemic chr onic H/O coronary artery bypass surgery chronic Hyperlipidemia chronic Nonrheumatic mitral (valve) insufficiency chronic Paroxysmal atrial fibrillation chronic Secondary pulmonary arterial hypertension chronic [facility] Work Phone: Evaluation note* Diagnosis Onset Date Resolution Status Acute dehydration acute Acute kidney injury acute Diarrhea acute Dizziness acute [facility] Work Phone: Evaluation note* Diagnosis Onset Date Resolution Status Acute kidney injury acute Diarrhea acute Dizziness acute Acute dehydration resolved [facility] Work Phone: Hospital Discharge instructions No data available for this section [facility] Progress note No data available for this section [facility] Summary Purpose Family History No Family History Records Found Relationship Condition Age at Onset Recorded Date/T marquis brother Malignant neoplasm of colon Unknown Myocardial infarction Unknown Hypertension Unknown Hyperlipidemia Unknown Heavy alcohol use Unknown sister Hypertension Unknown mother Diabetes mellitus Unknown Not Specified Cardiac disease Unknown Kidney disorder Unknown Advance Directives No Advanced Directives Records Found Advance Directive Response Recorded Date/ Time Advance Directives No December 25, 2019 7:24am Living Will No December 24 20 7:24am Power of Mini Bar Attendant No December 25, 2019 7:24am Advance Directive Response Recorded Date/ Time Advance Directives No December 25, 2019 6:24am Living Will No February 06, 2 023 11:59am Power of Mini Bar Attendant No February 06, 2023 11:59am Advance Directive Response Recorded Date/ Time Advance Directives No December 25, 2019 6:24am Living Will No February 06, 2 023 3:14pm Power of Mini Bar Attendant No February 06, 2023 3:14pm Chief Complaint and Reason for Visit Chief Complaint KAMEL/MOODISPAW LABS XRAY RIGHT FLANK PAIN, R/O STONE Chief Complaint KAMEL/MOODISPAW LABS XRAY RIGHT FLANK PAIN, R/O STONE 6 M FU ORDER W PATIENT Reason for Visit Essential hypertensi on Atherosclerosis of coronary artery of [place] heart without angina pectoris H/O coronary artery bypass surgery Hyperlipidemia Nonrheumatic mitral (valve) insufficiency Paroxysmal atrial fibrillation Secondary pulmonary arterial hypertension Chief Complaint 6 M FU EORDERS Diarrhea STOOL SAMPLE Reason for Visit Essential hypertensi on Atherosclerosis of coronary artery of [place] heart without angina pectoris Cardiomyopathy, ischemic H/O coronary artery bypass surgery Hyperlipidemia Nonrheumatic mitral (valve) insufficiency Paroxysmal atrial fibrillation Secondary pulmonary arterial hypertension Chief Complaint E ORDERS Chief Complaint E ORDERS ACUTE KIDNEY INUJURY Reason for Visit Acute dehydration Acute kidney injury Diarrhea Dizziness Chief Complaint E ORDERS ACUTE KIDNEY INUJURY ACUTE KIDNEY INUJURY ACUTE KIDNEY INUJURY Reason for Visit Acute dehydration Acute kidney injury Diarrhea Dizziness Chief Complaint E ORDERS ACUTE KIDNEY INUJURY ACUTE KIDNEY INUJURY ACUTE KIDNEY INUJURY ACUTE KIDNEY INUJURY Reason for Visit Acute kidney injury Diarrhea Dizziness Acute dehydration Additional Source Comments (unrecognized sect ion and content) No Status Records FoundNo Status Records FoundNo Status Records Found INFORMATION SOURCE (unrecogn ized section and content) DATE CREATED AUTHOR 10/23/2017 [facility] DATE CREATED AUTHOR AUTHOR'S ORGANIZ ATION 04/23/2023 [facility] DATE CREATED AUTHOR AUTHOR'S ORGANIZ ATION 04/24/2024 [facility] Goals (unrecognized section and content) Goals may be documented in a n alternate section Care Team (unrecognized sect ion and content) Care Team Personnel Name: SAMIR ABDI MD Member Role: Primary Care Physician Address: Address: [address] [place] [address]- Care Team Related Persons Name: KENYA JOHNSON Address: [address] [place] [address] Care Team Personnel Name: SAMIR ABDI MD Member Role: Primary Care Physician Address: Address: [address] [place] [address] Care Team Related Persons Name: KENYA JOHNSON Address: Home [address] [place] [address] Care Team Personnel Name: SAMIR ABDI MD Member Role: Primary Care Physician Address: Address: [address] [place] [address] Care Team Related Persons Name: KENYA JOHNSON Address: Home [address] [place] [address] Care Teams (unrecognized sec tion and content) Team Status: Active Member Role Status Dates Dr. Samir Abdi MD Family Provider Active Dr. Bernice Aquino MD Primary Care Provider Active Team Status: Inactive Member Role Status Dates Dr. Samir Abdi MD Primary Care Provider, Referring Provider Active Edwina VASQUEZ, PA Attending Provider Active Team Status: Inactive Member Role Status Dates Dr. Bernice Aquino MD Primary Care Provider Active Edwina VASQUEZ PA Attending Provider Active Team Status: Inactive Member Role Status Dates Dr. Bernice Aquino MD Primary Care Provider Active Dr. Harmony David MD Attending Provider, Referring Pro vider Active Team Status: Inactive Member Role Status Dates Dr. Bernice Aquino MD Primary Care Provider Active Dr. Harmony David MD Attending Provider Active Team Status: Inactive Member Role Status Dates Dr. Bernice Aquino MD Primary Care Provider Active Edwina VASQUEZ, PA Attending Provider, Referr ing Provider Active Team Status: Active Member Role Status Dates Dr. Bernice Aquino MD Primary Care Provider Active Dr. Maciel Garcia MD Emergency Provider Active Dr. Kevin Delacruz DO Admit Provider, Attending Provider Active Team Status: Active Member Role Status Dates Dr. Bernice Aquino MD Primary Care Provider Active Dr. Maciel Garcia MD Emergency Provider Active Dr. Kevin Delacruz DO Admit Provi radha, Attending Provider, Other Provider Active Team Status: Active Member Role Status Dates Dr. Bernice Aquino MD Primary Care Provider Active Dr. Maciel Garcia MD Emergency Provider Active Dr. Kevin Delacruz DO Admit Provider, Other Pro vider Active Dr. Palak Reyes MD Attending Provider, Other Provid er Active Team Status: Active Member Role Status Dates Dr. Bernice Aquino MD Primary Care Provider Active Dr. Augusto Burns MD Attending Provider Active Team Status: Inactive Member Role Status Dates Dr. Bernice Aquino MD Primary Care Provider Active Dr. Maciel Garcia MD Emergency Provider Active Dr. Kevin Delacruz DO Admit Provider, Other Pro vider Active Dr. Palak Reyes MD Attending Provider Active Team Status: Inactive Member Role Status Dates Dr. Bernice Aquino MD Primary Care Prov ider, Attending Provider, Referring Provider Active Team Status: Active Member Role Status Dates Dr. Bernice Aquino MD Primary Care Provider Active Dr. Augusto Bursn MD Attending Provider Active Dr. Kevin Delacruz DO Referring Provider Active FOR RECORDS PERTAINING TO PATIENTS WHO ARE [...] BE BASED ON THE PRIMARY CLINICAL RECORDS. [facility]. provides no warranty or guarantee of the accuracy or completeness of information in this document.
[2024-11-07 08:41] LABS: AST(SGOT) 26 U/L (<=37); Alanine Aminotransfer ALT/SGPT 20 U/L (<=46); Albumin, Serum 4.0 g/dL (3.4-4.8); Alkaline Phosphatase 90 U/L (40-129); Bilirubin, Direct 0.25 mg/dL (0.00-0.30); Cholesterol 110 mg/dL (<=200); Globulin 2.9 g/dL (2.2-4.2); Low Density Lipoprotein Calc. 45 mg/dL; Triglycerides 101 mg/dL; Very Low Density Lipoprotein 20 mg/dL (5-40); cholesterol:hdl ratio screen 2.44
== END | disposition home or self-care (01) ==
LOC: LAB 07:15
PROVIDERS: PCP Family Medicine; Referring Provider Physician Assistant Medical; Visit Provider Physician Assistant Medical
DX: E78.00 Pure hypercholesterolemia, unspecified (principal)
CPT/HCPCS: 36415; 80061; 80076